=== PATIENT | female | born 1945 | race Two or more races ===

== ENCOUNTER → 2019-06-08 | Outpatient (CLI) | payer MEDICARE, MEDICAID | END | disposition home or self-care (01) | LOC: Rad HDHVI 13:56 | PROVIDERS: ATTEND Internal Medicine Cardiovascular Disease | DX: R07.9 Chest pain, unspecified (principal); R06.02 Shortness of breath; R00.2 Palpitations | CPT/HCPCS: 93306 ==

== ENCOUNTER → 2019-09-11 | Outpatient (CLI) | payer MEDICARE, MEDICAID ==
[2019-09-11 11:50] LABS: Basophils # (auto) 0.1 uL; Basophils % (auto) 1.6 % (0.0-2.0); Eosinophils # (auto) 0.2 uL; Eosinophils % (auto) 2.3 % (0.0-7.0); Hematocrit 41.9 % (36.0-46.0); Hemoglobin 13.8 g/dL (12.2-16.2); Lymphocytes # (auto) 2.2 uL; Mean Corpuscular Hemoglobin 31.5 pg (28.0-32.0); Mean Corpuscular Volume 95.5 fL (80.0-100.0); Monocytes # (auto) 0.8 uL; Monocytes % (auto) 11.1 % (0.0-12.0); Neutrophils # (auto) 3.8 uL; Nucleated Red Blood Cells % 0.1 %; Platelet Count (auto) 327 10^3/uL (140-450); Red Blood Cells 4.39 10^6/uL (4.0-5.20); Red Cell Distribution Width 13.9 % (11.8-14.3); Urine Blood Negative /uL (Negative); Urine Specific Gravity 1.022 (1.001-1.035)
[2019-09-11 11:59] LABS: Albumin 3.8 g/dL (3.4-5.0); Calcium 9.1 mg/dL (8.5-10.1); Potassium 3.9 mmol/L (3.5-5.1)
[2019-09-11 12:03] LABS: BUN/Creatinine Ratio 17.3; Bilirubin, Total 0.3 mg/dL (0.2-1.0); Total Protein 7.5 g/dL (6.4-8.2)
[2019-09-11 12:10] LABS: Free T4 (Free Thyroxine) 1.31 ng/dL (0.89-1.76)
== END | disposition home or self-care (01) ==
LOC: LAB 08:19
PROVIDERS: ATTEND Internal Medicine Cardiovascular Disease
DX: E03.9 Hypothyroidism, unspecified (principal); K90.9 Intestinal malabsorption, unspecified; N39.0 Urinary tract infection, site not specified; D51.9 Vitamin B12 deficiency anemia, unspecified; Z79.899 Other long term (current) drug therapy
CPT/HCPCS: 36415; 80053; 80061; 81003; 82306; 82607; 83036; 84439; 84443; 85025; 87086

== ENCOUNTER → 2019-10-31 | Outpatient (CLI) | payer MEDICARE, MEDICAID ==
[2019-11-01 09:05] LABS: Hepatitis A Total Antibody Positive
[2019-11-01 10:06] LABS: Hepatitis B Surface Antibody Positive
[2019-11-01 10:58] LABS: Hepatitis B Core Total AB Negative; Hepatitis B Surface Antigen Negative (Negative)
[2019-11-01 10:59] LABS: Hepatitis C Antibody Negative (Negative)
== END | disposition home or self-care (01) ==
LOC: LAB 11:25
PROVIDERS: ATTEND Internal Medicine Cardiovascular Disease
DX: K75.9 Inflammatory liver disease, unspecified (principal); Z20.5 Contact with and (suspected) exposure to viral hepatitis
CPT/HCPCS: 36415; 86704; 86706; 86708; 86803; 87340

== ENCOUNTER → 2019-11-08 | Outpatient (CLI) | payer MEDICARE, MEDICAID | END | disposition home or self-care (01) | LOC: Rad HDHVI 15:51 | PROVIDERS: ATTEND Internal Medicine Cardiovascular Disease | DX: I50.43 Acute on chronic combined systolic (congestive) and diastolic (congestive) heart failure (principal); I48.91 Unspecified atrial fibrillation | CPT/HCPCS: 93306 ==

== ENCOUNTER → 2020-01-22 | Outpatient (CLI) | payer MEDICARE, MEDICAID | END | disposition home or self-care (01) | LOC: Rad HDHVI 14:55 | PROVIDERS: ATTEND Internal Medicine Cardiovascular Disease | DX: I11.0 Hypertensive heart disease with heart failure (principal); I48.0 Paroxysmal atrial fibrillation; I50.43 Acute on chronic combined systolic (congestive) and diastolic (congestive) heart failure | CPT/HCPCS: 93306 ==

== ENCOUNTER → 2020-03-11 | Outpatient (CLI) | payer MEDICARE, MEDICAID ==
[~2020-03-11] VITALS: Ht 165.1 cm; Wt 83.9 kg
== END | disposition home or self-care (01) ==
LOC: Rad HDHVI 08:18
PROVIDERS: ATTEND Internal Medicine Cardiovascular Disease
DX: I11.0 Hypertensive heart disease with heart failure (principal); I50.43 Acute on chronic combined systolic (congestive) and diastolic (congestive) heart failure; I48.0 Paroxysmal atrial fibrillation; R06.02 Shortness of breath; E78.5 Hyperlipidemia, unspecified; Z82.49 Family history of ischemic heart disease and other diseases of the circulatory system; Z95.0 Presence of cardiac pacemaker
CPT/HCPCS: 78472; 96374; 96375; A9505

== ENCOUNTER → 2020-03-14 | Outpatient (CLI) | payer MEDICARE, MEDICAID ==
[~2020-03-14] VITALS: Ht 165.1 cm; Wt 83.9 kg
== END | disposition home or self-care (01) ==
LOC: Rad HDHVI 08:43
PROVIDERS: ATTEND Internal Medicine Cardiovascular Disease
DX: I50.43 Acute on chronic combined systolic (congestive) and diastolic (congestive) heart failure (principal); E78.5 Hyperlipidemia, unspecified; Z95.0 Presence of cardiac pacemaker; Z82.49 Family history of ischemic heart disease and other diseases of the circulatory system
CPT/HCPCS: 78452; 93017; 96374; A9500

== ENCOUNTER → 2020-05-27 | Outpatient (CLI) | payer MEDICARE, MEDICAID ==
[2020-05-27 11:57] LABS: Basophils # (auto) 0 10 ^3/uL (0-0.2); Basophils % (auto) 0.5 % (0.0-2.0); Eosinophils # (auto) 0.3 10 ^3/uL (0-0.8); Eosinophils % (auto) 3.5 % (0.0-7.0); Hematocrit 43.9 % (36.0-46.0); Hemoglobin 14.8 g/dL (12.2-16.2); Lymphocytes # (auto) 1.9 10 ^3/uL (0.4-5.4); Lymphocytes % (auto) 26.7 % (10.0-50.0); Mean Corpuscular Hemoglobin 31.8 pg (28.0-32.0); Mean Corpuscular Hgb Conc. 33.8 g/dL (32.0-36.0); Monocytes # (auto) 0.9 10 ^3/uL (0-1.3); Monocytes % (auto) 12.7 % (0.0-12.0); Neutrophils # (auto) 4.1 10 ^3/uL (1.6-8.6); Neutrophils % (auto) 56.6 % (37.0-80.0); Nucleated Red Blood Cells % 0.1 %; Platelet Count (auto) 347 10^3/uL (140-450); Red Blood Cells 4.67 10^6/uL (4.0-5.20); White Blood Cell 7.2 10^3/uL (4.4-10.8)
[2020-05-27 12:05] LABS: Albumin 3.8 g/dL (3.4-5.0); Calcium 9.2 mg/dL (8.5-10.1); Potassium 4.1 mmol/L (3.5-5.1)
[2020-05-27 12:09] LABS: BUN/Creatinine Ratio 22.4; Bilirubin, Total 0.4 mg/dL (0.2-1.0); Total Protein 7.8 g/dL (6.4-8.2)
== END | disposition home or self-care (01) ==
LOC: LAB 11:08
PROVIDERS: ATTEND Internal Medicine Cardiovascular Disease
DX: C83.30 Diffuse large B-cell lymphoma, unspecified site (principal)
CPT/HCPCS: 36415; 80053; 85025

== ENCOUNTER → 2021-03-23 | Outpatient (CLI) | payer MEDICARE, MEDICAID | END | disposition home or self-care (01) | LOC: Rad HDHVI 10:55 | PROVIDERS: ATTEND Internal Medicine Cardiovascular Disease | DX: R00.2 Palpitations (principal); R06.02 Shortness of breath | CPT/HCPCS: 93306 ==

== ENCOUNTER → 2021-08-18 | Outpatient (CLI) | payer MEDICARE, MEDICAID | END | disposition home or self-care (01) | LOC: Rad HDHVI 10:50 | PROVIDERS: ATTEND Internal Medicine Cardiovascular Disease | DX: R00.2 Palpitations (principal); E78.5 Hyperlipidemia, unspecified | CPT/HCPCS: 93306 ==

== ENCOUNTER → 2021-12-31 | Outpatient (CLI) | payer MEDICARE, MEDICAID | END | disposition home or self-care (01) | LOC: Rad HDHVI 10:09 | PROVIDERS: ATTEND Internal Medicine Cardiovascular Disease | DX: I51.7 Cardiomegaly (principal); R06.02 Shortness of breath; R06.00 Dyspnea, unspecified; R94.31 Abnormal electrocardiogram [ECG] [EKG]; R00.2 Palpitations | CPT/HCPCS: 83880; 93306 ==

== ENCOUNTER → 2022-06-04 | Outpatient (CLI) | payer MEDICARE, MEDICAID ==
[2022-06-04 11:40] LABS: BUN/Creatinine Ratio 15.1; Calcium 9.4 mg/dL (8.5-10.1); Potassium 4.1 mmol/L (3.5-5.1)
== END | disposition home or self-care (01) ==
LOC: LAB 10:42
PROVIDERS: ATTEND Internal Medicine Cardiovascular Disease
DX: E11.9 Type 2 diabetes mellitus without complications (principal)
CPT/HCPCS: 36415; 80048; 83036

== ENCOUNTER → 2022-07-12 | Outpatient (CLI) | payer MEDICARE, MEDICAID ==
[~2022-07-12] VITALS: Ht 157.5 cm; Wt 79.4 kg
== END | disposition home or self-care (01) ==
LOC: Rad HDHVI 08:54
PROVIDERS: ATTEND Internal Medicine Cardiovascular Disease
DX: R06.02 Shortness of breath (principal); I11.0 Hypertensive heart disease with heart failure; I50.43 Acute on chronic combined systolic (congestive) and diastolic (congestive) heart failure; E78.5 Hyperlipidemia, unspecified; R55 Syncope and collapse; I25.5 Ischemic cardiomyopathy; R60.9 Edema, unspecified; I47.20 Ventricular tachycardia, unspecified; Z82.49 Family history of ischemic heart disease and other diseases of the circulatory system; Z79.899 Other long term (current) drug therapy; Z95.0 Presence of cardiac pacemaker
CPT/HCPCS: 93017

== ENCOUNTER → 2022-07-13 | Outpatient (CLI) | payer MEDICARE, MEDICAID | END | disposition home or self-care (01) | LOC: Rad HDHVI 13:52 | PROVIDERS: ATTEND Internal Medicine Cardiovascular Disease | DX: I08.1 Rheumatic disorders of both mitral and tricuspid valves (principal); R06.02 Shortness of breath; E78.5 Hyperlipidemia, unspecified | CPT/HCPCS: 93306 ==

== ENCOUNTER → 2022-07-26 | Outpatient (CLI) | payer MEDICARE, MEDICAID ==
[2022-07-26 11:50] LABS: Urine Blood Negative /uL (Negative); Urine Specific Gravity 1.006 (1.001-1.035)
[2022-07-26 11:51] LABS: Basophils # (auto) 0.1 10 ^3/uL (0-0.2); Eosinophils # (auto) 0.4 10 ^3/uL (0-0.8); Eosinophils % (auto) 4.2 % (0.0-7.0); Hematocrit 40.1 % (36.0-46.0); Hemoglobin 12.8 g/dL (12.2-16.2); Lymphocytes # (auto) 2.6 10 ^3/uL (0.4-5.4); Mean Corpuscular Hemoglobin 30.3 pg (28.0-32.0); Mean Corpuscular Volume 94.8 fL (80.0-100.0); Monocytes # (auto) 1.2 10 ^3/uL (0-1.3); Monocytes % (auto) 13.7 % (0.0-12.0); Neutrophils # (auto) 4.4 10 ^3/uL (1.6-8.6); Neutrophils % (auto) 51.1 % (37.0-80.0); Red Blood Cells 4.23 10^6/uL (4.0-5.20); Red Cell Distribution Width 13.6 % (11.8-14.3); White Blood Cell 8.5 10^3/uL (4.4-10.8)
[2022-07-26 12:02] LABS: Albumin 3.5 g/dL (3.4-5.0); Calcium 9.1 mg/dL (8.5-10.1); Potassium 4.2 mmol/L (3.5-5.1)
[2022-07-26 12:07] LABS: BUN/Creatinine Ratio 29.7; Bilirubin, Total 0.3 mg/dL (0.2-1.0); Total Protein 7.2 g/dL (6.4-8.2)
[2022-07-26 12:30] LABS: Free T4 (Free Thyroxine) 0.94 ng/dL (0.89-1.76)
== END | disposition home or self-care (01) ==
LOC: LAB 09:44
PROVIDERS: ATTEND Internal Medicine Cardiovascular Disease
DX: D51.3 Other dietary vitamin B12 deficiency anemia (principal); E55.9 Vitamin D deficiency, unspecified; D64.9 Anemia, unspecified; E11.9 Type 2 diabetes mellitus without complications; I10 Essential (primary) hypertension; R00.2 Palpitations; R53.1 Weakness; R30.0 Dysuria
CPT/HCPCS: 36415; 80053; 80061; 81003; 82306; 82607; 83036; 84439; 84443; 85025; 87086

== ENCOUNTER → 2023-11-01 | Outpatient (CLI) | payer MEDICARE, MEDICAID ==
[2023-11-01 11:45] LABS: Basophils # (auto) 0.1 10 ^3/uL (0-0.2); Eosinophils # (auto) 0.2 10 ^3/uL (0-0.8); Hemoglobin 13.2 g/dL (12.2-16.2); Lymphocytes # (auto) 1.6 10 ^3/uL (0.4-5.4); Lymphocytes % (auto) 21.9 % (10.0-50.0); Mean Corpuscular Hemoglobin 30.7 pg (28.0-32.0); Mean Corpuscular Volume 92.9 fL (80.0-100.0); Monocytes # (auto) 1.2 10 ^3/uL (0-1.3); Monocytes % (auto) 16.2 % (0.0-12.0); Neutrophils # (auto) 4.1 10 ^3/uL (1.6-8.6); Neutrophils % (auto) 57.9 % (37.0-80.0); Nucleated Red Blood Cells % 0.1 %; Red Blood Cells 4.31 10^6/uL (4.0-5.20); Red Cell Distribution Width 13.4 % (11.8-14.3); White Blood Cell 7.1 10^3/uL (4.4-10.8)
[2023-11-01 12:06] LABS: Urine Bacteria FEW /hpf (None Seen); Urine Blood Negative /uL (Negative); Urine Clarity HAZY (Clear); Urine Color Colorless (Yellow); Urine Hyaline Cast FEW /lpf (0 - 2); Urine Mucus FEW (None Seen); Urine Protein, UAD Negative (Negative); Urine Specific Gravity 1.007 (1.001-1.035); Urine Urobilinogen Normal (Negative); Urine WBC 17 /hpf (0 - 5); Urine pH 5.5 (5.0-8.0)
[2023-11-01 12:20] LABS: Alanine Aminotransferase 20 U/L (7-40); Albumin 4.4 g/dL (3.2-4.8); Alkaline Phosphatase 88 U/L (46-116); Anion Gap 6 (5-15); Aspartate Aminotransferase 22 U/L (13-40); BUN/Creatinine Ratio 16.7 (10.0-20.0); Bilirubin, Direct 0.1 mg/dL (<0.3); Bilirubin, Total 0.5 mg/dL (0.2-1.0); Blood Urea Nitrogen 10 mg/dL (9-23); Calcium 9.8 mg/dL (8.5-10.1); Carbon Dioxide 28 mmol/L (20-30); Chloride 103 mmol/L (98-107); Cholesterol 223 mg/dL (< 200); Glucose 101 mg/dL (74-106); HDL Cholesterol 78 mg/dL (40-59); LDL Cholesterol 136 mg/dL (< 100); Sodium 137 mmol/L (136-145); Total Protein 7.5 g/dL (5.7-8.2); Triglycerides 95 mg/dL (< 150)
== END | disposition home or self-care (01) ==
LOC: LAB 11:26
PROVIDERS: ATTEND Internal Medicine Cardiovascular Disease
DX: I10 Essential (primary) hypertension (principal); D51.3 Other dietary vitamin B12 deficiency anemia; D64.9 Anemia, unspecified; E11.9 Type 2 diabetes mellitus without complications; E55.9 Vitamin D deficiency, unspecified
CPT/HCPCS: 36415; 80053; 80061; 80076; 81001; 83036; 84443; 85025

== ENCOUNTER → 2024-01-20 | Outpatient (CLI) | payer MEDICARE, MEDICAID ==
[~2024-01-20] VITALS: Ht 162.6 cm; Wt 77.1 kg
== END | disposition home or self-care (01) ==
LOC: Rad HDHVI 08:32
PROVIDERS: ATTEND Internal Medicine Cardiovascular Disease
DX: I11.0 Hypertensive heart disease with heart failure (principal); I50.23 Acute on chronic systolic (congestive) heart failure; R55 Syncope and collapse; E78.00 Pure hypercholesterolemia, unspecified; I27.21 Secondary pulmonary arterial hypertension
CPT/HCPCS: 78472; 96374; 96375; A9505

== ENCOUNTER 2024-03-29 11:32 | Emergency (ER) | payer MEDICARE, MEDICAID ==
[~2024-03-29] VITALS: Ht 167.6 cm; Wt 80.0 kg
[2024-03-29] MEDS ORDERED: CEPH500C PO (15:51)
[2024-03-29 15:54] VITALS: BP 138/88; PULSE 88; RESP 17; TEMP 99; O2SAT 98
== END 2024-03-29 15:56 | disposition home or self-care (01) ==
LOC: ER 11:32
DX: K13.70 Unspecified lesions of oral mucosa (principal); Z79.899 Other long term (current) drug therapy; Z91.09 Other allergy status, other than to drugs and biological substances
CPT/HCPCS: 71046

== ENCOUNTER → 2024-05-28 | Outpatient (CLI) | payer MEDICARE, MEDICAID ==
[~2024-05-28] MED LIST: CEPH500C PO
[2024-05-28 13:49] LABS: Basophils # (auto) 0.1 10 ^3/uL (0-0.2); Basophils % (auto) 1.3 % (0.0-2.0); Eosinophils # (auto) 0.3 10 ^3/uL (0-0.8); Eosinophils % (auto) 4.8 % (0.0-7.0); Hematocrit 41.2 % (36.0-46.0); Hemoglobin 13.8 g/dL (12.2-16.2); Lymphocytes # (auto) 1.8 10 ^3/uL (0.4-5.4); Mean Corpuscular Hemoglobin 31.3 pg (28.0-32.0); Mean Corpuscular Hgb Conc. 33.6 g/dL (32.0-36.0); Mean Corpuscular Volume 93.2 fL (80.0-100.0); Neutrophils # (auto) 3.8 10 ^3/uL (1.6-8.6); Neutrophils % (auto) 53.9 % (37.0-80.0); Platelet Count (auto) 302 10^3/uL (140-450); Red Blood Cells 4.42 10^6/uL (4.0-5.20); Red Cell Distribution Width 13.3 % (11.8-14.3); White Blood Cell 7.1 10^3/uL (4.4-10.8)
[2024-05-28 15:09] LABS: Alanine Aminotransferase 18 U/L (7-40); Albumin 4.3 g/dL (3.2-4.8); Alkaline Phosphatase 108 U/L (46-116); Anion Gap 6 (5-15); Aspartate Aminotransferase 19 U/L (13-40); BUN/Creatinine Ratio 11.8 (10.0-20.0); Bilirubin, Direct 0.1 mg/dL (<0.3); Bilirubin, Total 0.4 mg/dL (0.2-1.0); Blood Urea Nitrogen 9 mg/dL (9-23); Calcium 9.8 mg/dL (8.7-10.4); Carbon Dioxide 27 mmol/L (20-31); Chloride 106 mmol/L (98-107); Cholesterol 225 mg/dL (< 200); Glucose 104 mg/dL (74-106); HDL Cholesterol 70 mg/dL (40-59); LDL Cholesterol 149 mg/dL (< 100); Potassium 4.1 mmol/L (3.5-5.1); Sodium 139 mmol/L (136-145); Total Protein 7.4 g/dL (5.7-8.2); Triglycerides 82 mg/dL (< 150)
== END | disposition home or self-care (01) ==
LOC: LAB 13:31
PROVIDERS: ATTEND Internal Medicine Cardiovascular Disease
DX: I10 Essential (primary) hypertension (principal); D64.9 Anemia, unspecified; E55.9 Vitamin D deficiency, unspecified; E11.9 Type 2 diabetes mellitus without complications; D51.3 Other dietary vitamin B12 deficiency anemia; R00.0 Tachycardia, unspecified
CPT/HCPCS: 36415; 80048; 80061; 80076; 83036; 84443; 85025

== ENCOUNTER → 2024-09-18 | Outpatient (CLI) | payer MEDICARE, MEDICAID ==
--- NOTE | 2024-09-19 13:13 | DVHSR ---
APPROVED REPORT EXAM: Two-dimensional and M-mode echocardiogram with Doppler and color Doppler. DIMENSIONS LVDd4.3 (3.8-5.7cm)LA (2D)4.2 (1.9-4.0cm)Aortic Root3.2 (2.0-3.7cm) LVDs3.2 (2.5-4.0cm)LA (MM) (1.9-4.0cm)Aortic Cusp Exc1.7 (1.5-2.0cm) EF (%) 50.1 (55-70%)Rt. Atrium2.7 (1.9-4.0cm)Asc. Aorta cm IVSd1.3 (0.7-1.1cm)RV (D)2.4 (1.8-2.4cm) PWd1.3 (0.7-1.1cm) Mitral Valve MitralMitral Stenosis E wave0.49m/sMV Mean GR.mmHg A wave0.85m/sMV Peak GR.12mmHg E/A ratio0.62D MVAcm2 DECEL [id number] 1/2 [place] Aortic Valve Aortic ValveAortic Stenosis V10.64m/Daniela Mean GR.4mmHg V21.29m/Daniela Peak GR.7mmHg Pulmonic Valve V20.49m/s Tricuspid Valve TR Velocity2.19m/s [id number] LEFT VENTRICLE The Ejection Fraction is 50-55%. ATRIA The left atrium is mildly dilated. The right atrium size is normal. MITRAL VALVE The mitral valve is normal in structure and function. Mitral regurgitation is trace to mild. PULMONIC VALVE The pulmonic valve is not well visualized. TRICUSPID VALVE The tricuspid valve is grossly normal. There is trace to mild tricuspid regurgitation. AORTIC VALVE The aortic valve opens well. No aortic regurgitation is present. GREAT VESSELS The aortic root is normal size. PERICARDIAL EFFUSION There is no pericardial effusion. Conclusion EF 50% CONC LVH
== END | disposition home or self-care (01) ==
LOC: Rad HDHVI 10:04
PROVIDERS: ATTEND Internal Medicine Cardiovascular Disease
DX: I08.1 Rheumatic disorders of both mitral and tricuspid valves (principal)
CPT/HCPCS: 93306

== ENCOUNTER → 2024-09-21 | Outpatient (CLI) | payer MEDICARE, MEDICAID ==
[~2024-09-21] VITALS: Ht 162.6 cm; Wt 78.5 kg
== END | disposition home or self-care (01) ==
LOC: Rad HDHVI 08:52
PROVIDERS: ATTEND Internal Medicine Cardiovascular Disease
DX: R06.09 Other forms of dyspnea (principal); R53.83 Other fatigue; I11.0 Hypertensive heart disease with heart failure; E78.00 Pure hypercholesterolemia, unspecified; I48.0 Paroxysmal atrial fibrillation; I50.33 Acute on chronic diastolic (congestive) heart failure; R09.89 Other specified symptoms and signs involving the circulatory and respiratory systems; I42.1 Obstructive hypertrophic cardiomyopathy; R06.02 Shortness of breath; E11.9 Type 2 diabetes mellitus without complications; I27.21 Secondary pulmonary arterial hypertension; I25.5 Ischemic cardiomyopathy; R42 Dizziness and giddiness; Z82.49 Family history of ischemic heart disease and other diseases of the circulatory system
CPT/HCPCS: 78452; 93017; 96374; A9500

== ENCOUNTER → 2024-09-24 | Outpatient (CLI) | payer MEDICARE, MEDICAID | END | disposition home or self-care (01) | LOC: Rad HDHVI 13:08 | PROVIDERS: ATTEND Internal Medicine Cardiovascular Disease | DX: I48.0 Paroxysmal atrial fibrillation (principal); I50.33 Acute on chronic diastolic (congestive) heart failure | CPT/HCPCS: 93880 ==

== ENCOUNTER → 2024-10-15 | Outpatient (CLI) | payer MEDICARE, MEDICAID ==
--- NOTE | 2024-10-15 16:23 | DVH ---
EXAM: CT HEAD WITHOUT CONTRAST INDICATION: CVA TECHNIQUE: CT of the head without intravenous contrast. Radiation Dose : 1. Head: CT Dose: CTDI volume is 50.68 mGy. Dose-length product is 912.29 mGy*cm The dose indicators for CT are the volume Computed Tomography (CT) Dose Index (CTDIvol) and the Dose Length Product (DLP), and are measured in units of mGy and mGy-cm, respectively. These indicators are not patient dose, but values generated from the CT scanner acquisition factors. The report includes radiation exposure data for exposures received during this examination. COMPARISON: None FINDINGS: There is no evidence of acute intracranial hemorrhage, extra-axial collection, mass effect, midline s hift, herniation or hydrocephalus. The ventricles, sulci and cisterns are age appropriate. The maldonado-white differentiation is intact. Patchy periventricular and subcortical white matter hypoattenuation is nonspecific but may be related to small vessel ischemic disease. The visualized paranasal sinuses and mastoid air cells are clear. The surrounding soft tissues and osseous structures are unremarkable. IMPRESSION: 1. No acute intracranial abnormality. Radiation optimization: All CT scans at this facility use at least one of these dose optimization nithin hniques: automated exposure control mA and/or kV adjustment per patient size (includes targeted exam s where dose is matched to clinical indication) or iterative reconstruction.
== END | disposition home or self-care (01) ==
LOC: Rad HDHVI 15:47
PROVIDERS: ATTEND Internal Medicine Cardiovascular Disease
DX: I63.9 Cerebral infarction, unspecified (principal)
CPT/HCPCS: 70450

== ENCOUNTER → 2024-10-24 | Outpatient (CLI) | payer MEDICARE, MEDICAID | END | disposition home or self-care (01) | LOC: Rad HDHVI 13:34 | PROVIDERS: ATTEND Internal Medicine Cardiovascular Disease | DX: I51.7 Cardiomegaly (principal); R42 Dizziness and giddiness | CPT/HCPCS: 93880 ==

== ENCOUNTER → 2024-12-17 | Outpatient (CLI) | payer MEDICARE, MEDICAID | END | disposition home or self-care (01) | LOC: Rad HDHVI 15:14 | PROVIDERS: ATTEND Internal Medicine Cardiovascular Disease | DX: I07.1 Rheumatic tricuspid insufficiency (principal); R06.02 Shortness of breath; R00.2 Palpitations | CPT/HCPCS: 93306 ==

== ENCOUNTER 2025-01-22 09:08 | Outpatient (CLI) | payer MEDICARE, MEDICAID ==
[2025-01-22 09:32] LABS: Basophils # (auto) 0.1 10 ^3/uL (0-0.2); Basophils % (auto) 0.7 % (0.0-2.0); Eosinophils # (auto) 0.4 10 ^3/uL (0-0.8); Eosinophils % (auto) 4.3 % (0.0-7.0); Hematocrit 41.7 % (36.0-46.0); Hemoglobin 14.1 g/dL (12.2-16.2); Lymphocytes # (auto) 1.6 10 ^3/uL (0.4-5.4); Lymphocytes % (auto) 18.2 % (10.0-50.0); Mean Corpuscular Hemoglobin 30.9 pg (28.0-32.0); Mean Corpuscular Hgb Conc. 33.9 g/dL (32.0-36.0); Mean Corpuscular Volume 91.3 fL (80.0-100.0); Monocytes # (auto) 1.2 10 ^3/uL (0-1.3); Neutrophils # (auto) 5.4 10 ^3/uL (1.6-8.6); Neutrophils % (auto) 62.8 % (37.0-80.0); Nucleated Red Blood Cells % 0.2 %; Platelet Count (auto) 286 10^3/uL (140-450); Red Blood Cells 4.57 10^6/uL (4.0-5.20); Red Cell Distribution Width 13.4 % (11.8-14.3); White Blood Cell 8.6 10^3/uL (4.4-10.8)
[2025-01-22 10:02] LABS: Urine Bacteria FEW /hpf (None Seen); Urine Blood Negative /uL (Negative); Urine Clarity Turbid (Clear); Urine Color Yellow (Yellow); Urine Hyaline Cast FEW /lpf (0 - 2); Urine Mucus FEW (None Seen); Urine Protein, UAD TRACE (Negative); Urine Squamous Epithelial Cell FEW /hpf (<5); Urine Urobilinogen Normal (Negative); Urine WBC 90 /HPF (0-5); Urine pH 6.5 (5.0-9.0)
[2025-01-22 10:17] LABS: Alanine Aminotransferase 19 U/L (7-40); Albumin 4.4 g/dL (3.2-4.8); Alkaline Phosphatase 84 U/L (46-116); Anion Gap 7 (5-15); Aspartate Aminotransferase 17 U/L (13-40); BUN/Creatinine Ratio 14.3 (10.0-20.0); Bilirubin, Total 0.4 mg/dL (0.2-1.0); Blood Urea Nitrogen 12 mg/dL (9-23); Carbon Dioxide 30 mmol/L (20-31); Chloride 104 mmol/L (98-107); HDL Cholesterol 49 mg/dL (40-59); Potassium 4.4 mmol/L (3.5-5.1); Sodium 141 mmol/L (136-145); Total Protein 7.4 g/dL (5.7-8.2)
[2025-01-22 10:18] LABS: Bilirubin, Direct < 0.1 mg/dL (<0.3); Calcium 10.6 mg/dL (8.7-10.4); Cholesterol 261 mg/dL (< 200); Glucose 144 mg/dL (74-106); LDL Cholesterol 185 mg/dL (< 100); Triglycerides 255 mg/dL (< 150)
== END 2025-01-22 17:00 | disposition home or self-care (01) ==
LOC: LAB 09:08
PROVIDERS: ATTEND Internal Medicine Cardiovascular Disease
DX: I10 Essential (primary) hypertension (principal); E55.9 Vitamin D deficiency, unspecified; E11.9 Type 2 diabetes mellitus without complications; D64.9 Anemia, unspecified; R00.2 Palpitations
CPT/HCPCS: 36415; 80048; 80061; 80076; 81001; 83036; 84443; 85025

== ENCOUNTER 2025-05-12 20:19 | Inpatient (IN) | payer MEDICARE, MEDICAID ==
[~2025-05-12] VITALS: Ht 162.6 cm; Wt 74.3 kg
[2025-05-12 22:08] LABS: Hematocrit 40.6 % (36.0-46.0); Hemoglobin 13.4 g/dL (12.2-16.2); Mean Corpuscular Hemoglobin 30.3 pg (28.0-32.0); Mean Corpuscular Volume 91.9 fL (80.0-100.0); Nucleated Red Blood Cells % 0.0 %
[2025-05-12 22:10] LABS: Chloride 101 mmol/L (98-107); Potassium 4.7 mmol/L (3.5-5.1); Sodium 139 mmol/L (136-145)
[2025-05-12 22:11] LABS: Anion Gap 13 (5-15); Calcium 9.3 mg/dL (8.7-10.4); Carbon Dioxide 25 mmol/L (20-31)
[2025-05-12 22:16] LABS: BUN/Creatinine Ratio 9.0 (10.0-20.0); Blood Urea Nitrogen 19 mg/dL (9-23)
--- NOTE | 2025-05-12 22:17 | DVH ---
Exam: CT CT AB PEL WO CON-NO ORAL OR IV History: Flank Pain Comparison Study: [facility] on DOS: 07/13/22, [facility] on DOS: 12/31/21 Technique: Multidetector spiral CT of the abdomen was performed from lung bases to pubic symphysis. I maging was performed without IV contrast. Axial, coronal and sagittal multiplanar reformats were obta ined from the axial data set by the technologist. Radiation dose : 1. Abdomen/Pelvis: CTDIvol 9.31 mGy, DLP 540.65 mGy*cm. Findings: Evaluation of solid organs is limited due to lack of intravenous contrast use. Lung Bases: Trace left pleural effusion appeared. Liver: Cirrhotic in appearance no discrete lesion. Gallbladder and biliary Tree: Unremarkable Spleen: Not visualized Pancreas: The pancreas is grossly normal in appearance. Adrenal Glands: Unremarkable Kidneys: Kidneys are grossly normal without calculi or hydronephrosis. Bladder: Grossly unremarkable for degree of distention. Bowel: The stomach is grossly normal in appearance. Small bowel and colon are normal in caliber and d istribution. The appendix is not visualized; however, no secondary findings of acute appendicitis natalie ntified. Ascites: Large volume of sides. Diffuse omental nodularity and thickening. Lymphadenopathy: No mesenteric, retroperitoneal or periportal lymphadenopathy. Abdominal wall and Mesentery: Diffuse omental nodularity and plaque like thickening. Large volume of ascites. Vasculature: The visualized abdominal aorta is normal in size and caliber. Evaluation of abdominal a nd pelvic vessels is limited due to lack of intravenous contrast. Pelvic Organs: Unremarkable Musculoskeletal: No aggressive focal bony lesions, acute fractures or dislocation. IMPRESSION: 1. Large volume of ascites with diffuse omental nodularity concerning for metastatic disease. Primary not entirely clear on this unenhanced CT. Paracentesis and cytology recommended. Radiation optimization: All CT scans at this facility use at least one of these dose optimization nithin hniques: automated exposure control mA and/or kV adjustment per patient size (includes targeted exam s where dose is matched to clinical indication) or iterative reconstruction.
[2025-05-12 22:21] LABS: Glucose 127 mg/dL (74-106)
[2025-05-12 22:22] LABS: Urine Protein, UAD 1+ (Negative)
--- NOTE | 2025-05-12 22:46 | ED.PDOC ---
History of Present Illness HPI Comments 80-year-old female presents with spouse for chief complaint of nonradiating, right-sided flank pain, with the associated nausea, poor appetite, and dizziness. Patient endorses on a symptoms all day, today, following initial, unprovoked and atraumatic onset. No reported modifiers. No recent sick contact, travel, ingestion, or further pertinent events or lifestyle changes reported. Significant history for bradycardia status post pacemaker, COPD, and gallstones. Denial of any vomiting, diarrhea, constipation, urinary symptoms, or further associated symptoms. REVIEW OF SYSTEMS: General: No fever, no chills, or fatigue HEENT: No sore throat, no earache, no congestion, no neck pain. Cardiac: No chest pain. No palpitations. Lungs: No shortness of breath, no cough. GI: Nausea, poor appetite. no vomiting, no diarrhea, no constipation, no abdominal pain : Right flank pain. No dysuria, frequency, or urgency. No hematuria. Musculoskeletal: No joint pain , no joint swelling, no extremity edema. Skin: No rash, no itching. Neuro: Dizziness. No headache, no weakness PHYSICAL EXAM: General: Awake, alert and oriented. No acute distress. Skin: Skin in warm, dry and intact. Appropriate color for ethnicity. HEENT: The head is normocephalic and atraumatic. Conjunctivae are clear without exudates or hemorrhage. Sclera is non-icteric. EOM are intact. No signs of nystagmus. Eyelids are normal in appearance without swelling or lesions. Oral mucosa is pink and moist Neck: The neck is supple with normal range of motion. No JVD. Cardiac: Heart rate and rhythm are normal. No murmurs, gallops, or rubs are auscultated. Respiratory: No signs of respiratory distress. Lung sounds are clear in all lobes bilaterally without rales, rhonchi, or wheezes. Abdominal: Abdomen is soft, right flank tenderness, guarding or rigidity. Bowel sounds are present and normoactive in all four quadrants. +CVA tenderness Musculoskeletal: Right flank tenderness. Extremities: Upper and lower extremities are atraumatic in appearance without d eformity or edema. Neurological: The patient is awake, alert and oriented to person, place, and time with normal speech. Speech is clear. There is no facial asymmetry. Psychiatric: Appropriate mood and affect. Good judgement and insight. Chief Complaint: Flank Pain Time Seen by MD: 20:52 Reviewed Notes: Nurses Notes, Medications, Allergies Allergies: Coded Allergies: Statins (Verified Allergy, Unknown, 03/11/20) Home Meds Active Scripts Cephalexin Monohydrate (Cephalexin) 500 Mg Cap, 1 CAP PO TID, #30 CAP Prov:BRNETBRENDA 03/29/24 Information Source: Patient Mode of Arrival: Ambulatory Past Medical History PAST MEDICAL HISTORY: COPD, Gallstones Past Medical History (Other): Bradycardia status post pacemaker Surgical History: Pacemaker (Status post bradycardia) BRILLIANDEER LOPPER History: No Pertinent BRILLIANDEER LOPPER History Family History Family History: Reviewed,noncontributory to illness, Unknown Social History Smoker: Non-Smoker Alcohol: Denies ETOH Use Drugs: Denies Drug Use Lives In: Home Was a procedure done? Was a procedure done?: No Differential Dx Considerations may include: Differential diagnosis includes but is not limited to pyelonephritis, nephrolithiasis, AAA, musculoskeletal pain, urinary tract infection, cholecystitis, appendicitis, other X-Ray, Labs, Meds, VS Vital Signs Date Time Temp Pulse Resp B/P (MAP) Pulse Ox O2 Delivery O2 Flow Rate FiO2 05/12/25 20:20 97.8 76 20 124/57 93 97.8 Lab Test 05/12/25 23:25 05/12/25 22:00 05/12/25 21:52 Range/Units Lactic Acid Level 1.4 0.4-2.0 mmol/L Urine Color Yellow Yellow Urine Clarity Clear Clear Urine pH 5.0 5.0-9.0 Urine Specific [place] 1.015 1.001-1.035 Urine Protein 1+ H Negative Urine Ketones Trace H Negative Urine Blood Trace H Negative /uL Urine Nitrite Negative Negative Urine Bilirubin Negative Negative Urine Urobilinogen Normal Negative mg/dL Urine Leukocyte Esterase Negative Negative /uL Urine Glucose Normal Normal mg/dL White Blood Count 21.5 H 4.4-10.8 10^3/uL Red Blood Count 4.41 4.0-5.20 10^6/uL Hemoglobin 13.4 12.2-16.2 g/dL Hematocrit 40.6 36.0-46.0 % Mean Corpuscular Volume 91.9 80.0-100.0 fL Mean Corpuscular Hemoglobin 30.3 28.0-32.0 pg Mean Corpuscular Hemoglobin Concent 33.0 32.0-36.0 g/dL Red Cell Distribution Width 13.0 11.8-14.3 % Platelet Count 230 140-450 10^3/uL Mean Platelet Volume 7.8 6.9-10.8 fL Neutrophils (%) (Auto) 85.7 H 37.0-80.0 % Lymphocytes (%) (Auto) 4.7 L 10.0-50.0 % Monocytes (%) (Auto) 9.0 0.0-12.0 % Eosinophils (%) (Auto) 0.2 0.0-7.0 % Basophils (%) (Auto) 0.4 0.0-2.0 % Neutrophils # (Auto) 18.5 H 1.6-8.6 10 ^3/uL Lymphocytes # (Auto) 1.0 0.4-5.4 10 ^3/uL Monocytes # (Auto) 1.9 H 0-1.3 10 ^3/uL Eosinophils # (Auto) 0 0-0.8 10 ^3/uL Basophils # (Auto) 0.1 0-0.2 10 ^3/uL Nucleated Red Blood Cells 0.0 % Sodium Level 139 136-145 mmol/L Potassium Level 4.7 3.5-5.1 mmol/L Chloride Level 101 98-107 mmol/L Carbon Dioxide Level 25 20-31 mmol/L Anion Gap 13 5-15 Blood Urea Nitrogen 19 9-23 mg/dL Creatinine 2.10 H 0.550-1.02 mg/dL Glomerular Filtration Rate Calc 23 >90 mL/min BUN/Creatinine Ratio 9.0 L 10.0-20.0 Serum Glucose 127 H 74-106 mg/dL Calcium Level 9.3 8.7-10.4 mg/dL Total Bilirubin 0.5 0.2-1.0 mg/dL Aspartate Amino Transferase (AST) 63 H 13-40 U/L Alanine Aminotransferase (ALT) 26 7-40 U/L Alkaline Phosphatase 125 H 46-116 U/L Current Medications Medications (Trade) Dose Ordered Sig/Andrew Route Start Time Stop Time Status Last Admin Ibuprofen (Motrin Tablet) 600 mg ONCE ONCE PO 05/12/25 22:45 05/12/25 22:46 DC 05/13/25 01:27 Acetaminophen (Tylenol Tablet) 650 mg ONCE ONCE PO 05/12/25 22:45 05/12/25 22:46 DC 05/13/25 01:20 Ceftriaxone Sodium/Dextrose 50 ml @ 50 mls/hr ONCE ONCE IV 05/12/25 23:00 05/12/25 23:59 DC 05/13/25 01:[address] [address] Ph: [phone] DIAGNOSTIC IMAGING Diagnostic Imaging Report : [id number] Signed PATIENT: KAY ORTIZ ACCT: [id number] UNIT: [id number] : 1945 LOC: ER ROOM / BED: / AGE / SEX: 80 / F ADM STATUS: REG ER SERVICE 30 ORDERING PHYSICIAN: JESSI BHAT MD PROCEDURE(s): ABPL - CT AB PEL WO CON-NO ORAL OR IV REASON: Flank Pain ORDER NUMBER(s): [id number], ACCESSION NUMBER(s): [id number] Exam: CT CT AB PEL WO CON-NO ORAL OR IV History: Flank Pain Comparison Study: [facility] on DOS: 07/13/22, [facility] on DOS: 12/31/21 Technique: Multidetector spiral CT of the abdomen was performed from lung bases to pubic symphysis. Imaging was performed without IV contrast. Axial, coronal and sagittal multiplanar reformats were obtained from the axial data set by the technologist. Radiation dose : 1. Abdomen/Pelvis: CTDIvol 9.31 mGy, DLP 540.65 mGy*cm. Findings: Evaluation of solid organs is limited due to lack of intravenous contrast use. Lung Bases: Trace left pleural effusion appeared. Liver: Cirrhotic in appearance no discrete lesion. Gallbladder and biliary Tree: Unremarkable Spleen: Not visualized Pancreas: The pancreas is grossly normal in appearance. Adrenal Glands: Unremarkable Kidneys: Kidneys are grossly normal without calculi or hydronephrosis. Bladder: Grossly unremarkable for degree of distention. Bowel: The stomach is grossly normal in appearance. Small bowel and colon are normal in caliber and distribution. The appendix is not visualized; however, no secondary findings of acute appendicitis identified. Ascites: Large volume of sides. Diffuse omental nodularity and thickening. Lymphadenopathy: No mesenteric, retroperitoneal or periportal lymphadenopathy. Abdominal wall and Mesentery: Diffuse omental nodularity and plaque like thickening. Large volume of ascites. Vasculature: The visualized abdominal aorta is normal in size and caliber. Evaluation of abdominal and pelvic vessels is limited due to lack of intravenous contrast. Pelvic Organs: Unremarkable Musculoskeletal: No aggressive focal bony lesions, acute fractures or dislocation. IMPRESSION: 1. Large volume of ascites with diffuse omental nodularity concerning for metastatic disease. Primary not entirely clear on this unenhanced CT. Paracentesis and cytology recommended. Radiation optimization: All CT scans at this facility use at least one of these dose optimization techniques: automated exposure control mA and/or kV adjustm ent per patient size (includes targeted exams where dose is matched to clinical indication) or iterative reconstruction. ATED BY: TYLER FAJARDO MD DICTATED DATE/TIME: 05/12/252213 SIGNED BY: TYLER FAJARDO MD SIGNED DATE/TIME: 05/12/252213 CC: Time of 1ST Reevaluation: 21:22 Reevaluation 1ST: Unchanged Patient Education/Counseling: Treatment, Other (Need for admission) Family Education/Counseling: Treatment, Other (Need for admission) SEPSIS Sepsis Screen Date sepsis recognized/suspect: May 12, 2025 Time Sepsis recognized/suspect: 2025 Recent Procedure: No On Antibiotic Therapy: No Respiratory Rate >20: No Heart Rate >90: No Temp<36 C (96.8 F) or >38.3 C: No SBP <90 or MAP <65 mmHG: No New Acute Mental Status Change: No Is the patient on CPAP, BIPAP,: No Physician Orders Ct Ab Pel Wo Con-No Oral Or Iv (05/12/25 21:31) Blood Culture (05/12/25 22:52) Sodium Chloride 0.9% (05/12/25 23:00) Vital Signs Date Time Temp Pulse Resp B/P (MAP) Pulse Ox O2 Delivery O2 Flow Rate FiO2 05/12/25 20:20 97.8 76 20 124/57 93 97.8 Laboratory Tests Test 05/12/25 21:52 05/12/25 23:25 White Blood Count 21.5 10^3/uL (4.4-10.8) H Lactic Acid Level 1.4 mmol/L (0.4-2.0) Medications Medications Dose Ordered Sig/Andrew Route Start Time Stop Time Status Last Admin Dose Admin Acetaminophen 650 mg ONCE ONCE PO 05/12/25 22:45 05/12/25 22:46 DC 05/13/25 01:20 Ceftriaxone Sodium/Dextrose 50 ml @ 50 mls/hr ONCE ONCE IV 05/12/25 23:00 05/12/25 23:59 DC 05/13/25 01:27 Ibuprofen 600 mg ONCE ONCE PO 05/12/25 22:45 05/12/25 22:46 DC 05/13/25 01:27 Departure 1 Departure Time of Disposition: 22:54 Impression: Primary Impression: Abdominal ascites Additional Impression: GEORGE (acute kidney injury) Disposition: ADMITTED INPATIENT Condition: Stable Comments 80-year-old female with a worsening abdominal pain. CT scan shows new onset ascites concerning for possible malignancy. IV fluids initiated in the ED. Patient admitted to hospitalist service for further treatment, evaluation and monitoring. Critical Care Note Critical Care Time?: No Stability Stability form required: No Heart Score Heart Score: Heart Score Response (Comments) Value History N/A 0 EKG N/A 0 Age N/A 0 Risk Factors N/A 0 Troponin N/A 0 Total 0 I personally scribed for JESSI BHAT MD ([email or web address]) on 05/12/25 at 22:46. Electronically submitted by Iglesia Crawford ([email or web address]). I personally scribed for JESSI BHAT MD ([email or web address]) on 05/13/25 at 00:09. Electronically submitted by Iglesia Crawford ([email or web address]). JESSI BHAT MD May 12, 2025 22:46
[2025-05-12] MEDS: SODIUM CHLORIDE 0.9% 1,000 ML IV ONE (23:00)
[2025-05-12 23:30] LABS: Alanine Aminotransferase 26.0 U/L (7-40); Bilirubin, Total 0.5 mg/dL (0.2-1.0)
[2025-05-12 23:37] LABS: Alkaline Phosphatase 125.0 U/L (46-116)
[2025-05-13] VITALS (8 sets, daily range): BP systolic 100–143; BP diastolic 41–76; PULSE 70–96; RESP 16–19; TEMP 97.2–98.8; O2SAT 92–95
[2025-05-13] MEDS ORDERED: ONDANSETRON HCL 4 MG/2 ML VIAL IV PRN (00:45)
[2025-05-13] MEDS ORDERED: ALBUTEROL SULF 2.5 MG/0.5ML(0.5%) NEB SOLN NEB PRN (00:45)
--- NOTE | 2025-05-13 00:51 | DVHHP2 ---
History of Present Illness Reason for Visit: Abdominal pain History of Present Illness 80-year-old female presents for evaluation of right-sided abdominal pain. Patient endorses a three day history of right-sided abdominal pain with associated nausea. Patient reports the pain as pressure-like. Patient also reports losing approximately 15 lb unintentionally over the past couple of months. No fever or chills. No other acute complaints reported. Past Medical History Lymphoma 22 years ago, COPD, bradycardia, hypertension Past Surgical History Pacemaker, splenectomy Family History Noncontributory Smoke: No ALCOHOL: none Drugs: None Lives: with Family Review of Systems Review of Systems Review of systems are currently negative otherwise addressed in HPI. Allergies: Coded Allergies: Statins (Verified Allergy, Unknown, 03/11/20) Medications Current Medications Medications Dose Ordered Sig/Andrew Route Start Time Stop Time Status Last Admin Dose Admin Ceftriaxone Sodium 50 ml @ 100 mls/hr DAILY@09 IV 05/13/25 09:00 UNV Metoprolol Succinate 50 mg DAILY PO 05/13/25 10:00 UNV Digoxin 0.125 mg DAILY PO 05/13/25 10:00 UNV Exam Vital Signs Vital Signs Date Time Temp Pulse Resp B/P (MAP) Pulse Ox O2 Delivery O2 Flow Rate FiO2 05/12/25 20:20 97.8 76 20 124/57 93 97.8 Exam Gen: 80-year-old female in mild distress Skin: Warm, dry, normal color and texture, no rash. HEENT: Normocephalic atraumatic, mucous membranes moist and pink. Neck: Cervical and supraclavicular nodes normal without enlargement, trachea is midline, thyroid gland is normal without masses. Pulmonary: Clear to auscultation and percussion bilaterally. Cardiac: Regular rate and rhythm. No murmur Abdomen: Soft, nontender, mild distention, bowel sounds present all 4 quadrants, no guarding, no rigidity, no organomegaly. Extremities: No cyanosis, clubbing, no edema Neuro: Cranial nerves II through XII grossly intact, normal affect and speech, no focal motor deficits. Labs/Xrays ORDERING PHYSICIAN: JESSI BHAT MD PROCEDURE(s): ABPL - CT AB PEL WO CON-NO ORAL OR IV REASON: Flank Pain ORDER NUMBER(s): [id number], ACCESSION NUMBER(s): [id number] Exam: CT CT AB PEL WO CON-NO ORAL OR IV History: Flank Pain Comparison Study: [facility] on DOS: 07/13/22, [facility] on DOS: 12/31/21 Technique: Multidetector spiral CT of the abdomen was performed from lung bases to pubic symphysis. Imaging was performed without IV contrast. Axial, coronal and sagittal multiplanar reformats were obtained from the axial data set by the technologist. Radiation dose : 1. Abdomen/Pelvis: CTDIvol 9.31 mGy, DLP 540.65 mGy*cm. Findings: Evaluation of solid organs is limited due to lack of intravenous contrast use. Lung Bases: Trace left pleural effusion appeared. Liver: Cirrhotic in appearance no discrete lesion. Gallbladder and biliary Tree: Unremarkable Spleen: Not visualized Pancreas: The pancreas is grossly normal in appearance. Adrenal Glands: Unremarkable Kidneys: Kidneys are grossly normal without calculi or hydronephrosis. Bladder: Grossly unremarkable for degree of distention. Bowel: The stomach is grossly normal in appearance. Small bowel and colon are normal in caliber and distribution. The appendix is not visualized; however, no secondary findings of acute appendicitis identified. Ascites: Large volume of sides. Diffuse omental nodularity and thickening. Lymphadenopathy: No mesenteric, retroperitoneal or periportal lymphadenopathy. Abdominal wall and Mesentery: Diffuse omental nodularity and plaque like thickening. Large volume of ascites. Vasculature: The visualized abdominal aorta is normal in size and caliber. Evaluation of abdominal and pelvic vessels is limited due to lack of intravenous contrast. Pelvic Organs: Unremarkable Musculoskeletal: No aggressive focal bony lesions, acute fractures or dislocation. IMPRESSION: 1. Large volume of ascites with diffuse omental nodularity concerning for metastatic disease. Primary not entirely clear on this unenhanced CT. Paracentesis and cytology recommended. Radiation optimization: All CT scans at this facility use at least one of these dose optimization techniques: automated exposure control mA and/or kV adjustment per patient size (includes targeted exams where dose is matched to clinical indication) or iterative reconstruction. Labs Test 05/12/25 23:25 05/12/25 22:00 05/12/25 21:52 Range/Units Lactic Acid Level 1.4 0.4-2.0 mmol/L Urine Color Yellow Yellow Urine Clarity Clear Clear Urine pH 5.0 5.0-9.0 Urine Specific [place] 1.015 1.001-1.035 Urine Protein 1+ H Negative Urine Ketones Trace H Negative Urine Blood Trace H Negative /uL Urine Nitrite Negative Negative Urine Bilirubin Negative Negative Urine Urobilinogen Normal Negative mg/dL Urine Leukocyte Esterase Negative Negative /uL Urine Glucose Normal Normal mg/dL White Blood Count 21.5 H 4.4-10.8 10^3/uL Red Blood Count 4.41 4.0-5.20 10^6/uL Hemoglobin 13.4 12.2-16.2 g/dL Hematocrit 40.6 36.0-46.0 % Mean Corpuscular Volume 91.9 80.0-100.0 fL Mean Corpuscular Hemoglobin 30.3 28.0-32.0 pg Mean Corpuscular Hemoglobin Concent 33.0 32.0-36.0 g/dL Red Cell Distribution Width 13.0 11.8-14.3 % Platelet Count 230 140-450 10^3/uL Mean Platelet Volume 7.8 6.9-10.8 fL Neutrophils (%) (Auto) 85.7 H 37.0-80.0 % Lymphocytes (%) (Auto) 4.7 L 10.0-50.0 % Monocytes (%) (Auto) 9.0 0.0-12.0 % Eosinophils (%) (Auto) 0.2 0.0-7.0 % Basophils (%) (Auto) 0.4 0.0-2.0 % Neutrophils # (Auto) 18.5 H 1.6-8.6 10 ^3/uL Lymphocytes # (Auto) 1.0 0.4-5.4 10 ^3/uL Monocytes # (Auto) 1.9 H 0-1.3 10 ^3/uL Eosinophils # (Auto) 0 0-0.8 10 ^3/uL Basophils # (Auto) 0.1 0-0.2 10 ^3/uL Nucleated Red Blood Cells 0.0 % Sodium Level 139 136-145 mmol/L Potassium Level 4.7 3.5-5.1 mmol/L Chloride Level 101 98-107 mmol/L Carbon Dioxide Level 25 20-31 mmol/L Anion Gap 13 5-15 Blood Urea Nitrogen 19 9-23 mg/dL Creatinine 2.10 H 0.550-1.02 mg/dL Glomerular Filtration Rate Calc 23 >90 mL/min BUN/Creatinine Ratio 9.0 L 10.0-20.0 Serum Glucose 127 H 74-106 mg/dL Calcium Level 9.3 8.7-10.4 mg/dL Total Bilirubin 0.5 0.2-1.0 mg/dL Aspartate Amino Transferase (AST) 63 H 13-40 U/L Alanine Aminotransferase (ALT) 26 7-40 U/L Alkaline Phosphatase 125 H 46-116 U/L SEPSIS Sepsis Screen Date sepsis recognized/suspect: May 12, 2025 Time Sepsis recognized/suspect: 2025 Recent Procedure: No On Antibiotic Therapy: No Respiratory Rate >20: No Heart Rate >90: No Temp<36 C (96.8 F) or >38.3 C: No SBP <90 or MAP <65 mmHG: No New Acute Mental Status Change: No Is the patient on CPAP, BIPAP,: No Physician Orders Ct Ab Pel Wo Con-No Oral Or Iv (05/12/25 21:31) Blood Culture (05/12/25 22:52) Sodium Chloride 0.9% (05/12/25 23:00) Admit (05/12/25 23:36) Ceftriaxone 1gm/50ml (Rocephin) (05/13/25 09:00) * Radiologist Consult (05/13/25 00:42) *Dr. Avel Cortes [facility] (05/13/25 00:42) * Hematology/Oncology Consult (05/13/25 00:42) Metoprolol Xl Succinate (Toprol Xl) (05/13/25 10:00) Digoxin Tablet (Lanoxin Tablet) (05/13/25 10:00) Albuterol Medneb (Ventolin Medneb) (05/13/25 00:45) Basic Metabolic Panel (05/13/25 04:00) Complete Blood Count (05/13/25 04:00) Renal Standard(2gna,3gk,Lopho) (05/13/25 Breakfast) Hydrocodone-Acet 5/325mg Tab ([place] 5/32 (05/13/25 00:45) Ondansetron Hcl (Zofran) (05/13/25 00:45) Condition: Stable (05/13/25 00:42) Acetaminophen Tablet (Tylenol Tablet) (05/13/25 00:45) Bedrest With Bathroom Privileg (05/13/25 00:42) Vital Signs Date Time Temp Pulse Resp B/P (MAP) Pulse Ox O2 Delivery O2 Flow Rate FiO2 05/12/25 20:20 97.8 76 20 124/57 93 97.8 Laboratory Tests Test 05/12/25 21:52 05/12/25 23:25 White Blood Count 21.5 10^3/uL (4.4-10.8) H Lactic Acid Level 1.4 mmol/L (0.4-2.0) Assessment/Plan Assessment/Plan Assessment Acute renal failure Large volume ascites ? Metastatic disease Status post pacemaker Plan Admit the patient to [facility] to the hospitalist Nephrology consult Radiology consult Hematology consultation Resume home medications Continue treatment per orders. Plan discussed with: Patient My Orders Orders - HERB LYNN Procedure Category Date Status Time Admit ADMIT 05/12/25 Transmitted 23:36 Ceftriaxone 1gm/50ml PHA 05/13/25 Logged (Rocephin) 09:00 * Radiologist Consult CONS 05/13/25 Transmitted 00:42 *[facility]. [facility] CONS 05/13/25 Transmitted -[place] 00:42 * Hematology/Oncology CONS 05/13/25 Transmitted Consult 00:42 Metoprolol Xl PHA 05/13/25 Logged Succinate (Toprol Xl) 10:00 Digoxin Tablet PHA 05/13/25 Transmitted (Lanoxin Tablet) 10:00 Albuterol Medneb PHA 05/13/25 Transmitted (Ventolin Medneb) 00:45 Basic Metabolic Panel LAB 05/13/25 Logged 04:00 Complete Blood Count LAB 05/13/25 Logged 04:00 Renal DIET 05/13/25 Transmitted Standard(2gna,3gk,Lopho) Breakfast Hydrocodone-Acet PHA 05/13/25 Transmitted 5/325mg Tab ([place] 00:45 Ondansetron Hcl PHA 05/13/25 Transmitted (Zofran) 00:45 Condition: Stable JENNIFER 05/13/25 In Process 00:42 Acetaminophen Tablet PHA 05/13/25 Transmitted (Tylenol Tablet) 00:45 Bedrest With Bathroom JENNIFER 05/13/25 In Process Privileg 00:42 Date of Service: May 12, 2025 Billing Provider: HERB LYNN Common Visit Codes: [id number] INP/OBS CARE (HIGH) HERB LYNN May 13, 2025 00:51
[2025-05-13] MEDS: ACETAMINOPHEN 325 MG TAB PO ONE (01:20)
[2025-05-13] MEDS: IBUPROFEN 600 MG TAB PO ONE (01:27)
[2025-05-13 07:25] LABS: Hematocrit 40.8 % (36.0-46.0); Hemoglobin 13.3 g/dL (12.2-16.2); Mean Corpuscular Hemoglobin 30.3 pg (28.0-32.0); Mean Corpuscular Volume 92.6 fL (80.0-100.0); Nucleated Red Blood Cells % 0.0 %
[2025-05-13 07:52] LABS: Potassium 4.5 mmol/L (3.5-5.1)
[2025-05-13 07:53] LABS: Anion Gap 13 (5-15); Calcium 9.1 mg/dL (8.7-10.4); Carbon Dioxide 24 mmol/L (20-31); Chloride 98 mmol/L (98-107); Sodium 135 mmol/L (136-145)
[2025-05-13 07:58] LABS: BUN/Creatinine Ratio 8.1 (10.0-20.0); Blood Urea Nitrogen 21 mg/dL (9-23); Glucose 100 mg/dL (74-106)
[2025-05-13] MEDS ORDERED: SACU1TAB PO (08:58)
[2025-05-13] MEDS ORDERED: METO-289 PO (08:58)
[2025-05-13] MEDS ORDERED: IVAB5TAB2 PO (08:58)
[2025-05-13] MEDS ORDERED: DIGO0.12 PO (08:58)
--- NOTE | 2025-05-13 09:46 | DVH ---
US PARACENTESIS, HISTORY: ASCITES PROCEDURE: Informed consent was obtained. The patient was placed in supine position. A limited locali zation ultrasound of the abdomen was obtained, and the skin site over the largest pocket of fluid was marked and entry site was prepped with chlorhexidine which was allowed to dry and draped in the usua l sterile fashion. Time out was performed. Following administration of 1% lidocaine local anesthetic, a 5 Chinese centesis needle catheter was percutaneously inserted into the peritoneal collection until fluid was aspirated. The catheter was advanced into the fluid collection and the needle removed. Abo ut 3600 cc of fluid was aspirated and specimen sent for appropriate cultures/cytology/cultures and cy tology. The catheter was then removed and a sterile dressing applied. No immediate complication was identified. FINDINGS: Limited ultrasound imaging demonstrates mild to moderate ascites. Aspirated fluid was clear and serous. IMPRESSION: US-guided paracentesis with 3.6L removed.
[2025-05-13] MEDS: METOPROLOL SUCCINATE XL 50 MG TAB PO SCH (10:00)
[2025-05-13] MEDS: DIGOXIN 0.125 MG TAB PO SCH (10:10)
--- NOTE | 2025-05-13 12:13 | DVHINCON2 ---
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 She was found to have large volume ascites at presentation she is status post paracentesis with 3.6 L removed. She denies any previous history of kidney disease and reports her previous medical followups have never indicated a chronic kidney disease diagnosis the last time her hospital records here showed GFR calculation is greater than 70% in 2021 nephrology is consulted presently because patient has significantly diminished GFR currently less than 20% Allergies: Coded Allergies: Statins (Verified Allergy, Unknown, 03/11/20) Home Meds Reported Medications Digoxin (Digoxin) 125 Mcg Tab, 1 TAB PO DAILY 05/13/25 Sacubitril-Valsartan (Entresto 24-26 mg) 1 Tab Tab, TAB PO 05/13/25 Ivabradine HCl (Ivabradine Hydrochloride) 5 Mg Tab, 1 TAB PO BID 05/13/25 Metoprolol Succinate (Metoprolol Succinate Er) 50 Mg Tab, 1 TAB PO BID 05/13/25 Current Medications Current Medications Medications (Trade) Dose Ordered Sig/Andrew Route PRN Reason Start Time Stop Time Status Last Admin Ceftriaxone Sodium 50 ml @ 100 mls/hr DAILY@09 IV 05/13/25 09:00 05/13/25 08:18 Metoprolol Succinate (Toprol Xl) 50 mg DAILY PO 05/13/25 10:00 05/13/25 12:32 DC Digoxin (Lanoxin Tablet) 0.125 mg DAILY PO 05/13/25 10:00 05/13/25 12:32 DC 05/13/25 10:10 Albuterol (Ventolin Medneb) 2.5 mg Q6HPRN PRN NEB SHORTNESS OF BREATH 05/13/25 00:45 Acetaminophen/ Hydrocodone Bitart ([place] 5/325MG Tab) 1 tab Q4HP PRN PO MODERATE PAIN (4-6 PAIN SCALE) 05/13/25 00:45 Ondansetron HCl (Zofran) 4 mg Q4HP PRN IV NAUSEA / VOMITING 05/13/25 00:45 Acetaminophen (Tylenol Tablet) 650 mg Q6HP PRN PO PAIN SCALE 1-3 OR TEMP>100.4 05/13/25 00:45 Family History: FH: cancer G8 MOTHER FH: heart attack G8 MOTHER Review of Systems Abdominal distention H&P Exam Vital Signs/I&O Vital Sign Date Time Temp Pulse Resp B/P (MAP) Pulse Ox O2 Delivery O2 Flow Rate FiO2 05/13/25 10:10 66 05/13/25 10:00 102/45 05/13/25 09:39 95 Room Air* 0 21 05/13/25 09:00 97.6 19 97.6 Intake and Output 05/12/25 05/13/25 19:00 07:00 Intake Total 50 ml Balance 50 ml Intake IV Total 50 ml Physical Exam Elderly female Appears stated age Not in overt distress Periorbital puffiness regular rate and rhythm abdomen is not firm is soft no present distention status post paracentesis Trace ankle edema Labs/Diagnostic Data Labs/Diagnostic Data Laboratory Tests Test 05/13/25 07:00 05/12/25 23:25 05/12/25 22:00 05/12/25 21:52 Range/Units White Blood Count 20.6 H 21.5 H 4.4-10.8 10^3/uL Red Blood Count 4.40 4.41 4.0-5.20 10^6/uL Hemoglobin 13.3 13.4 12.2-16.2 g/dL Hematocrit 40.8 40.6 36.0-46.0 % Mean Corpuscular Volume 92.6 91.9 80.0-100.0 fL Mean Corpuscular Hemoglobin 30.3 30.3 28.0-32.0 pg Mean Corpuscular Hemoglobin Concent 32.7 33.0 32.0-36.0 g/dL Red Cell Distribution Width 13.4 13.0 11.8-14.3 % Platelet Count 220 230 140-450 10^3/uL Mean Platelet Volume 7.7 7.8 6.9-10.8 fL Neutrophils (%) (Auto) 82.1 H 85.7 H 37.0-80.0 % Lymphocytes (%) (Auto) 6.1 L 4.7 L 10.0-50.0 % Monocytes (%) (Auto) 10.7 9.0 0.0-12.0 % Eosinophils (%) (Auto) 0.7 0.2 0.0-7.0 % Basophils (%) (Auto) 0.4 0.4 0.0-2.0 % Neutrophils # (Auto) 16.9 H 18.5 H 1.6-8.6 10 ^3/uL Lymphocytes # (Auto) 1.2 1.0 0.4-5.4 10 ^3/uL Monocytes # (Auto) 2.2 H 1.9 H 0-1.3 10 ^3/uL Eosinophils # (Auto) 0.1 0 0-0.8 10 ^3/uL Basophils # (Auto) 0.1 0.1 0-0.2 10 ^3/uL Nucleated Red Blood Cells 0.0 0.0 % Sodium Level 135 L 139 136-145 mmol/L Potassium Level 4.5 4.7 3.5-5.1 mmol/L Chloride Level 98 101 98-107 mmol/L Carbon Dioxide Level 24 25 20-31 mmol/L Anion Gap 13 13 5-15 Blood Urea Nitrogen 21 19 9-23 mg/dL Creatinine 2.59 H 2.10 H 0.550-1.02 mg/dL Glomerular Filtration Rate Calc 18 23 >90 mL/min BUN/Creatinine Ratio 8.1 L 9.0 L 10.0-20.0 Serum Glucose 100 127 H 74-106 mg/dL Calcium Level 9.1 9.3 8.7-10.4 mg/dL Lactic Acid Level 1.4 0.4-2.0 mmol/L Urine Color Yellow Yellow Urine Clarity Clear Clear Urine pH 5.0 5.0-9.0 Urine Specific [place] 1.015 1.001-1.035 Urine Protein 1+ H Negative Urine Ketones Trace H Negative Urine Blood Trace H Negative /uL Urine Nitrite Negative Negative Urine Bilirubin Negative Negative Urine Urobilinogen Normal Negative mg/dL Urine Leukocyte Esterase Negative Negative /uL Urine Glucose Normal Normal mg/dL Total Bilirubin 0.5 0.2-1.0 mg/dL Aspartate Amino Transferase (AST) 63 H 13-40 U/L Alanine Aminotransferase (ALT) 26 7-40 U/L Alkaline Phosphatase 125 H 46-116 U/L Assessment Acute kidney injury hemodynamically mediated no previous ckd hx GFR > 70 in 2021 new onset Ascites s/p large volume paracentesis given hx nonhodgkin lymphoma there is high concern for malignant ascites overall normal Echo 11/2024 f/u paracentesis results, send for diagnosis obtain serum albumin level f/u cardiology no emergent indication for dialysis at this time, rec continued w/u of of ascites no nsaids avoid contrast studies obtain records from [facility] 55mins Plan discussed with: Patient ELENA CULVER MD May 13, 2025 12:13
--- NOTE | 2025-05-13 12:40 | DVHPN2 ---
Progress Note Date Seen: May 13, 2025 Medical Necessity Reason Pt with a Central, PICC or Fol: No Subjective Patient reports: No new complaints Review of Systems: HEENT:Normal, CVS:Normal, RESPIRATORY:Normal, GI:Normal, :Normal, MSK:Normal, NEURO:Normal Objective vital signs Vital Sign Date Time Temp Pulse Resp B/P (MAP) Pulse Ox O2 Delivery O2 Flow Rate FiO2 05/13/25 10:10 66 05/13/25 10:00 102/45 05/13/25 09:39 95 Room Air* 0 21 05/13/25 09:00 97.6 19 97.6 Total Intake and Output 05/12/25 05/12/25 05/13/25 15:00 23:00 07:00 Intake Total 50 ml Balance 50 ml medications Current Medications Medications Dose Ordered Sig/Andrew Route Start Time Stop Time Status Last Admin Dose Admin Ceftriaxone Sodium 50 ml @ 100 mls/hr DAILY@09 IV 05/13/25 09:00 05/13/25 08:18 100 MLS/HR Albuterol 2.5 mg Q6HPRN PRN NEB 05/13/25 00:45 Acetaminophen/ Hydrocodone Bitart 1 tab Q4HP PRN PO 05/13/25 00:45 Ondansetron HCl 4 mg Q4HP PRN IV 05/13/25 00:45 Acetaminophen 650 mg Q6HP PRN PO 05/13/25 00:45 Examination: GENERAL:Normal, HEENT:Normal, NECK:Normal, LUNGS:Normal, CVS:Normal, ABDOMEN:Normal, ABDOMEN:Abnormal (ascites), MSK:Normal, SKIN:Normal, NEURO:Normal, :Normal laboratory and microbiology Laboratory Tests 05/13/25 07:00 Test 05/13/25 07:00 Range/Units Serum Glucose 100 74-106 mg/dL Problem List/Assessment/Plan Problem List/Assessment/Plan #1 ascites: s/p paracentesis #2 liver cirrhosis: check hep panel #3 non hodgkins lymphoma #4 h/o pacer #5 acute renal failure ?vasomotor nephropathy #6 wt loss #7 sepsis with ?sbp: iv rocephin #8 copd #9 omental nodularity advance care planning- full code- time spent 19 mins Plan discussed with: Patient My Orders My Orders Orders - HERB SERRATO MD Procedure Category Date Status Time * Cardiology Consult CONS 05/13/25 Transmitted 12:27 Digoxin (Lanoxin) LAB 05/13/25 Transmitted 12:27 Echo 2d Mode Cardiac US 05/13/25 Logged DOP 12:27 Complete Blood Count LAB 05/14/25 Verified 06:00 Comprehensive LAB 05/14/25 Verified Metabolic Panel 06:00 PTPTT LAB 05/14/25 Verified 04:00 Acute Hepatitis Panel LAB 05/13/25 Transmitted 12:27 Date of Service: May 13, 2025 Billing Provider: HERB SERRATO MD Common Visit Codes: [id number] INP/OBS CARE(HIGH) Secondary Visit Codes: [id number] CARE PLAN 30 MINUTES HERB SERRATO MD May 13, 2025 12:40
--- NOTE | 2025-05-13 13:34 | DVHPN2 ---
Progress Note - Dictate Date Seen: May 13, 2025 Medical Necessity Reason Pt with a Central, PICC or Fol: No Subjective PT WITH CAROID STENOSIS S/P CERVICAL SPINE SURGERY CRYPTOGENIC CIRRHOSIS KYLIE HTN VOLUME DEPLETION PROGRESSIVE ASCITES R/O PERITONITIS HFrEF S/P BV AICD vital signs Vital Sign Date Time Temp Pulse Resp B/P (MAP) Pulse Ox O2 Delivery O2 Flow Rate FiO2 05/13/25 10:10 66 05/13/25 10:00 102/45 05/13/25 09:39 95 Room Air* 0 21 05/13/25 09:00 97.6 19 97.6 Total Intake and Output 05/12/25 05/12/25 05/13/25 15:00 23:00 07:00 Intake Total 50 ml Balance 50 ml medications Current Medications Medications Dose Ordered Sig/Andrew Route Start Time Stop Time Status Last Admin Dose Admin Ceftriaxone Sodium 50 ml @ 100 mls/hr DAILY@09 IV 05/13/25 09:00 05/13/25 08:18 100 MLS/HR Albuterol 2.5 mg Q6HPRN PRN NEB 05/13/25 00:45 Acetaminophen/ Hydrocodone Bitart 1 tab Q4HP PRN PO 05/13/25 00:45 Ondansetron HCl 4 mg Q4HP PRN IV 05/13/25 00:45 Acetaminophen 650 mg Q6HP PRN PO 05/13/25 00:45 objective HEENT: Normal ENT Inspection, PERRL/EOMI, Pharynx Normal, TMs Normal, Other (A TINY BLOOD VESSEL ON THE ROOF OF THE MOUTH IS BLEEDING, NO SWELLING AND ACTIVELY BLEEDING. NO BLOOD CLOTS, NO DENTAL AND GUM INFECTION. ) Neck: Full Range of Motion, Non-Tender, Normal, Normal Inspection Respiratory: Chest Non-Tender, Lungs Clear, No Accessory Muscle Use, No Respiratory Distress, Normal Breath Sounds Cardiovascular: No Edema, No JVD, No Murmur, No Gallop, Normal Peripheral Pulses, Regular Rate/Rhythm Breast Exam: Deferred Gastrointestinal: No Organomegaly, + ascite< shifting dullness Genitalia: Deferred Pelvic: Deferred Rectal: Deferred Extremities: No calf tenderness, Normal capillary refill, Normal inspection, Normal range of motion, Non-tender, No pedal edema Musculoskeletal : Apperance: Normal Neurologic: Alert, precision 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 hand II-XII nml as Tested, No Motor Deficits, Normal Affect, Normal Mood, No Sensory Deficits Cerebellar Function: Normal Reflexes: Normal Skin: Dry, Normal Color, Warm Peripheral Pulses: 2+ carotid (R), 2+ carotid (L) Lymphatic: No Adenopathy laboratory and microbiology Laboratory Tests 05/13/25 07:00 Test 05/13/25 07:00 Range/Units Serum Glucose 100 74-106 mg/dL Problem List PERITONITIS ASICITES CIRRHOSIS HFrEF S/P BIV AICD ACUTE RENAL FAILURE Assessment/Plan ABX S/P PARACENTESIS SLOW VOLUME REPLETION WITH ALBUMIN Plan discussed with: Patient, Daughter, Son Critical Care Time(min): 35 RUDY CHAKRABORTY MD May 13, 2025 13:34
[2025-05-13 16:38] LABS: Hepatitis B Surface Antigen Negative (Negative)
[2025-05-13 17:13] LABS: Hepatitis C Antibody Negative (Negative)
[2025-05-14] VITALS (9 sets, daily range): BP systolic 109–128; BP diastolic 61–72; PULSE 72–96; RESP 16–18; TEMP 97.6–98.6; O2SAT 93–99
[2025-05-14 04:20] LABS: Hematocrit 35.7 % (36.0-46.0); Hemoglobin 12.3 g/dL (12.2-16.2); Mean Corpuscular Hemoglobin 31.2 pg (28.0-32.0); Mean Corpuscular Volume 90.4 fL (80.0-100.0); Nucleated Red Blood Cells % 0.0 %
[2025-05-14 04:29] LABS: Alanine Aminotransferase 15 U/L (7-40); Albumin 3.3 g/dL (3.2-4.8); Alkaline Phosphatase 98 U/L (46-116); Anion Gap 13 (5-15); BUN/Creatinine Ratio 12.9 (10.0-20.0); Bilirubin, Total 0.3 mg/dL (0.2-1.0); Carbon Dioxide 24 mmol/L (20-31); Chloride 100 mmol/L (98-107); Glucose 99 mg/dL (74-106); Potassium 4.2 mmol/L (3.5-5.1); Sodium 137 mmol/L (136-145); Total Protein 6.1 g/dL (5.7-8.2)
[2025-05-14 04:37] LABS: INR 1.13 (0.9-1.15); Partial Thromboplastin Time 33.1 SEC (24.5-34.5); Prothrombin Time 11.8 sec (9.3-11.8)
[2025-05-14 04:40] LABS: Blood Urea Nitrogen 40 mg/dL (9-23); Calcium 8.6 mg/dL (8.7-10.4)
--- NOTE | 2025-05-14 10:29 | DVHPN2 ---
Progress Note Date Seen: May 14, 2025 Medical Necessity Reason Pt with a Central, PICC or Fol: No Subjective Patient reports: No new complaints Review of Systems: HEENT:Normal, CVS:Normal, RESPIRATORY:Normal, GI:Normal, :Normal, MSK:Normal, NEURO:Normal Objective vital signs Vital Sign Date Time Temp Pulse Resp B/P (MAP) Pulse Ox O2 Delivery O2 Flow Rate FiO2 05/14/25 08:59 97.6 89 16 115/63 (80) 96 97.6 05/14/25 08:06 Room Air* 0 21 Total Intake and Output 05/13/25 05/13/25 05/14/25 15:00 23:00 07:00 Intake Total 0 ml 400 ml Balance 0 ml 400 ml medications Current Medications Medications Dose Ordered Sig/Andrew Route Start Time Stop Time Status Last Admin Dose Admin Ceftriaxone Sodium 50 ml @ 100 mls/hr DAILY@09 IV 05/13/25 09:00 05/14/25 08:29 100 MLS/HR Albuterol 2.5 mg Q6HPRN PRN NEB 05/13/25 00:45 Acetaminophen/ Hydrocodone Bitart 1 tab Q4HP PRN PO 05/13/25 00:45 Ondansetron HCl 4 mg Q4HP PRN IV 05/13/25 00:45 Acetaminophen 650 mg Q6HP PRN PO 05/13/25 00:45 Examination: GENERAL:Normal, HEENT:Normal, NECK:Normal, LUNGS:Normal, CVS:Normal, ABDOMEN:Normal, MSK:Normal, SKIN:Normal, NEURO:Normal, :Normal laboratory and microbiology Laboratory Tests 05/14/25 03:48 Test 05/14/25 03:48 Range/Units Serum Glucose 99 74-106 mg/dL Microbiology Date/Time Source Procedure Growth Status 05/12/25 23:25 Blood Blood Culture - Preliminary NO GROWTH AFTER 24 HOURS OF INCUBATION. Resulted Problem List/Assessment/Plan Problem List/Assessment/Plan #1 ascites: s/p paracentesis #2 liver cirrhosis: check hep panel #3 non hodgkins lymphoma #4 h/o pacer #5 acute renal failure ?vasomotor nephropathy #6 wt loss #7 sepsis with ?sbp: iv rocephin #8 copd #9 omental nodularity advance care planning- full code- time spent 19 mins Plan discussed with: Patient My Orders My Orders Orders - AMA,HERMILA S MD Procedure Category Date Status Time * Cardiology Consult CONS 05/13/25 Transmitted 12:27 Octreotide Acetate PHA 05/14/25 Verified (Sandostatin) 14:00 Lactulose Oral PHA 05/14/25 Verified 10:30 Lactulose Oral PHA 05/14/25 Verified 22:00 Temazepam (Restoril) PHA 05/14/25 Verified 10:30 Pantoprazole PHA 05/14/25 Verified (Protonix) 10:30 Pantoprazole PHA 05/15/25 Verified (Protonix) 10:00 Pt Request For Service PT 05/14/25 Verified 10:25 Basic Metabolic Panel LAB 05/15/25 Verified 06:00 Complete Blood Count LAB 05/15/25 Verified 06:00 Chest Portable XY 05/14/25 Verified 10:25 Date of Service: May 14, 2025 Billing Provider: HERB SERRATO MD Common Visit Codes: [id number] INP/OBS CARE(HIGH) HERB SERRATO MD May 14, 2025 10:29
[2025-05-14] MEDS: LACTULOSE 20Gm/30ML SOLN PO ONE (10:53)
[2025-05-14] MEDS: PANTOPRAZOLE 40 MG/10 ML VIAL INJ IV ONE (10:53)
--- NOTE | 2025-05-14 10:59 | DVH ---
XY CHEST PORTABLE, HISTORY: CHF COMPARISON: XY CHEST TWO VIEWS ROUTINE on DOS: 03/29/24 XY CHEST TWO VIEWS ROUTINE on DOS: 03/29/24 TECHNICAL DATA: 1 view of the chest was obtained. FINDINGS: Lines and tubes: A cardiac pacer is noted. Cardiomediastinal silhouette: normal Pulmonary vasculature: normal Lung expansion: normal Lung airspace: normal Lung interstitium: normal Pleura: normal Pneumothorax: no Bones: Unremarkable Other: no IMPRESSION: No acute intrathoracic abnormality.
--- NOTE | 2025-05-14 12:21 | DVHPN2 ---
Progress Note Date Seen: May 14, 2025 Medical Necessity Reason Pt with a Central, PICC or Fol: No Subjective Patient reports: Feels better Objective vital signs Vital Sign Date Time Temp Pulse Resp B/P (MAP) Pulse Ox O2 Delivery O2 Flow Rate FiO2 05/14/25 08:59 97.6 89 16 115/63 (80) 96 97.6 05/14/25 08:06 Room Air* 0 21 Total Intake and Output 05/13/25 05/13/25 05/14/25 14:59 22:59 06:59 Intake Total 0 ml 400 ml Balance 0 ml 400 ml medications Current Medications Medications Dose Ordered Sig/Andrew Route Start Time Stop Time Status Last Admin Dose Admin Ceftriaxone Sodium 50 ml @ 100 mls/hr DAILY@09 IV 05/13/25 09:00 05/14/25 08:29 100 MLS/HR Albuterol 2.5 mg Q6HPRN PRN NEB 05/13/25 00:45 Acetaminophen/ Hydrocodone Bitart 1 tab Q4HP PRN PO 05/13/25 00:45 Ondansetron HCl 4 mg Q4HP PRN IV 05/13/25 00:45 Acetaminophen 650 mg Q6HP PRN PO 05/13/25 00:45 Octreotide Acetate 100 mcg TID SUBCUT 05/14/25 14:00 Lactulose 30 ml BID PO 05/14/25 22:00 Temazepam 15 mg HSPRN PRN PO 05/14/25 10:30 Pantoprazole Sodium 40 mg DAILY IV 05/15/25 10:00 Examination: GENERAL:Normal, CVS:Normal laboratory and microbiology Laboratory Tests 05/14/25 03:48 Test 05/14/25 03:48 Range/Units Serum Glucose 99 74-106 mg/dL Microbiology Date/Time Source Procedure Growth Status 05/12/25 23:25 Blood Blood Culture - Preliminary NO GROWTH AFTER 24 HOURS OF INCUBATION. Resulted Problem List/Assessment/Plan Problem List/Assessment/Plan Acute kidney injury hemodynamically mediated no previous ckd hx GFR > 70 in 2021 new onset Ascites s/p large volume paracentesis given hx nonhodgkin lymphoma there is high concern for malignant ascites overall normal Echo 11/2024 patient reports PPM was placed for type 1 heart block f/u paracentesis results, send for diagnosis f/u cardiology IV albumin today no emergent indication for dialysis at this time, despite worsening cr send urine studies rec continued w/u of of ascites no nsaids avoid contrast studies obtain records from [place] Plan discussed with: Patient My Orders My Orders Orders - ELENA CULVER MD Procedure Category Date Status Time Urine Sodium LAB 05/14/25 Logged 10:38 Urine Creatinine LAB 05/14/25 Logged 10:38 Urine LAB 05/14/25 Logged Protein/Creatinine Communication Order ORDERS 05/14/25 Transmitted 10:38 ELENA CULVER MD May 14, 2025 12:21
[2025-05-14] MEDS: ALBUMIN 25% 50 ML IV SCH ×2 (12:30→21:47)
--- NOTE | 2025-05-14 12:41 | DVHPN2 ---
Progress Note - Dictate Date Seen: May 14, 2025 Medical Necessity Reason Pt with a Central, PICC or Fol: No Subjective PT WITH CAROID STENOSIS S/P CERVICAL SPINE SURGERY CRYPTOGENIC CIRRHOSIS KYLIE HTN VOLUME DEPLETION PROGRESSIVE ASCITES R/O PERITONITIS HFrEF S/P BV AICD vital signs Vital Sign Date Time Temp Pulse Resp B/P (MAP) Pulse Ox O2 Delivery O2 Flow Rate FiO2 05/14/25 08:59 97.6 89 16 115/63 (80) 96 97.6 05/14/25 08:06 Room Air* 0 21 Total Intake and Output 05/13/25 05/13/25 05/14/25 15:00 23:00 07:00 Intake Total 0 ml 400 ml Balance 0 ml 400 ml medications Current Medications Medications Dose Ordered Sig/Andrew Route Start Time Stop Time Status Last Admin Dose Admin Ceftriaxone Sodium 50 ml @ 100 mls/hr DAILY@09 IV 05/13/25 09:00 05/14/25 08:29 100 MLS/HR Albuterol 2.5 mg Q6HPRN PRN NEB 05/13/25 00:45 Acetaminophen/ Hydrocodone Bitart 1 tab Q4HP PRN PO 05/13/25 00:45 Ondansetron HCl 4 mg Q4HP PRN IV 05/13/25 00:45 Acetaminophen 650 mg Q6HP PRN PO 05/13/25 00:45 Octreotide Acetate 100 mcg TID SUBCUT 05/14/25 14:00 Lactulose 30 ml BID PO 05/14/25 22:00 Temazepam 15 mg HSPRN PRN PO 05/14/25 10:30 Pantoprazole Sodium 40 mg DAILY IV 05/15/25 10:00 Albumin Human 50 ml @ 100 mls/hr Q8H IV 05/14/25 12:30 05/15/25 04:59 UNV objective HEENT: Normal ENT Inspection, PERRL/EOMI, Pharynx Normal, TMs Normal, Other (A TINY BLOOD VESSEL ON THE ROOF OF THE MOUTH IS BLEEDING, NO SWELLING AND ACTIVELY BLEEDING. NO BLOOD CLOTS, NO DENTAL AND GUM INFECTION. ) Neck: Full Range of Motion, Non-Tender, Normal, Normal Inspection Respiratory: Chest Non-Tender, Lungs Clear, No Accessory Muscle Use, No Respiratory Distress, Normal Breath Sounds Cardiovascular: No Edema, No JVD, No Murmur, No Gallop, Normal Peripheral Pulses, Regular Rate/Rhythm Breast Exam: Deferred Gastrointestinal: No Organomegaly, + ascite< shifting dullness Genitalia: Deferred Pelvic: Deferred Rectal: Deferred Extremities: No calf tenderness, Normal capillary refill, Normal inspection, Normal range of motion, Non-tender, No pedal edema Musculoskeletal : Apperance: Normal Neurologic: Alert, link cutter II-XII nml as Tested, No Motor Deficits, Normal Affect, Normal Mood, No Sensory Deficits Cerebellar Function: Normal Reflexes: Normal Skin: Dry, Normal Color, Warm Peripheral Pulses: 2+ carotid (R), 2+ carotid (L) Lymphatic: No Adenopathy laboratory and microbiology Laboratory Tests 05/14/25 03:48 Test 05/14/25 03:48 Range/Units Serum Glucose 99 74-106 mg/dL Problem List PERITONITIS ASICITES CIRRHOSIS HFrEF S/P BIV AICD ACUTE RENAL FAILURE Assessment/Plan ABX S/P PARACENTESIS SLOW VOLUME REPLETION WITH ALBUMIN fFLUID Plan discussed with: Patient RUDY CHAKRABORTY MD May 14, 2025 12:41
[2025-05-14 14:07] LABS: Glucose, Body Fluid 96.0 mg/dL (.); LD, Body Fluid 671.0 IU/L (.)
[2025-05-14] MEDS: VANCOMYCIN 1GM/250ML KIT 250 ML IV ONE (15:26)
[2025-05-14] MEDS: OCTREOTIDE ACETATE 100 MCG/ML VL SUBCUT SCH (15:27)
[2025-05-14 18:14] LABS: Protein, Urine 65.9 mg/dL (1-14)
[2025-05-14] MEDS: LACTULOSE 20Gm/30ML SOLN PO SCH (21:43)
[2025-05-14] MEDS: TEMAZEPAM 15 MG CAP PO PRN (21:47)
[2025-05-15] VITALS (9 sets, daily range): BP systolic 112–120; BP diastolic 54–69; PULSE 71–78; RESP 18–20; TEMP 97.3–98.4; O2SAT 97–99
[2025-05-15 06:05] LABS: Hematocrit 37.0 % (36.0-46.0); Hemoglobin 12.3 g/dL (12.2-16.2); Mean Corpuscular Hemoglobin 30.2 pg (28.0-32.0); Mean Corpuscular Volume 90.7 fL (80.0-100.0); Nucleated Red Blood Cells % 0.1 %
[2025-05-15 06:13] LABS: Chloride 100 mmol/L (98-107); Potassium 4.4 mmol/L (3.5-5.1); Sodium 138 mmol/L (136-145)
[2025-05-15 06:14] LABS: Anion Gap 10 (5-15); Carbon Dioxide 28 mmol/L (20-31)
[2025-05-15 06:15] LABS: Calcium 9.2 mg/dL (8.7-10.4)
[2025-05-15 06:19] LABS: BUN/Creatinine Ratio 11.3 (10.0-20.0)
[2025-05-15 06:22] LABS: Blood Urea Nitrogen 37 mg/dL (9-23); Glucose 151 mg/dL (74-106)
[2025-05-15] MEDS: PANTOPRAZOLE 40 MG/10 ML VIAL INJ IV SCH (10:23)
--- NOTE | 2025-05-15 11:06 | DVHPN2 ---
Progress Note Date Seen: May 15, 2025 Medical Necessity Reason Pt with a Central, PICC or Fol: No Subjective Patient reports: No new complaints Review of Systems: HEENT:Normal, CVS:Normal, RESPIRATORY:Normal, GI:Normal, :Normal, MSK:Normal, NEURO:Normal Objective vital signs Vital Sign Date Time Temp Pulse Resp B/P (MAP) Pulse Ox O2 Delivery O2 Flow Rate FiO2 05/15/25 09:00 97.8 71 20 113/54 (73) 97 97.8 05/15/25 07:05 Nasal Cannula* 2 28 Total Intake and Output 05/14/25 05/14/25 05/15/25 15:00 23:00 07:00 Intake Total 50 ml 900 ml 150 ml Balance 50 ml 900 ml 150 ml medications Current Medications Medications Dose Ordered Sig/Andrew Route Start Time Stop Time Status Last Admin Dose Admin Ceftriaxone Sodium 50 ml @ 100 mls/hr DAILY@09 IV 05/13/25 09:00 05/15/25 10:35 100 MLS/HR Albuterol 2.5 mg Q6HPRN PRN NEB 05/13/25 00:45 Cancel Acetaminophen/ Hydrocodone Bitart 1 tab Q4HP PRN PO 05/13/25 00:45 Ondansetron HCl 4 mg Q4HP PRN IV 05/13/25 00:45 Acetaminophen 650 mg Q6HP PRN PO 05/13/25 00:45 Octreotide Acetate 100 mcg TID SUBCUT 05/14/25 14:00 05/15/25 05:43 100 MCG Lactulose 30 ml BID PO 05/14/25 22:00 05/15/25 10:25 30 ML Temazepam 15 mg HSPRN PRN PO 05/14/25 10:30 05/14/25 21:47 15 MG Pantoprazole Sodium 40 mg DAILY IV 05/15/25 10:00 05/15/25 10:23 40 MG Albumin Human 50 ml @ 100 mls/hr Q8H IV 05/14/25 20:00 05/15/25 12:29 05/15/25 04:00 100 MLS/HR Examination: GENERAL:Normal, HEENT:Normal, NECK:Normal, LUNGS:Normal, CVS:Normal, ABDOMEN:Normal, MSK:Normal, SKIN:Normal, NEURO:Normal, :Normal laboratory and microbiology Laboratory Tests 05/15/25 05:51 Test 05/15/25 05:51 Range/Units Serum Glucose 151 H 74-106 mg/dL Microbiology Date/Time Source Procedure Growth Status 05/13/25 09:40 Ascities Fluid Gram Stain - Final Resulted 05/13/25 09:40 Ascities Fluid Body Fluid Culture - Preliminary Resulted 05/12/25 23:25 Blood Blood Culture - Preliminary NO GROWTH AFTER 48 HOURS OF INCUBATION. Resulted Problem List/Assessment/Plan Problem List/Assessment/Plan #1 ascites: s/p paracentesis #2 liver cirrhosis: check hep panel #3 non hodgkins lymphoma #4 h/o pacer #5 acute renal failure ?vasomotor nephropathy #6 wt loss #7 sepsis with ?sbp: iv rocephin #8 copd #9 omental nodularity #10 diarrhea: check c diff, flagyl advance care planning- full code- time spent 19 mins Plan discussed with: Patient My Orders My Orders Orders - HERB SERRATO MD Procedure Category Date Status Time Cancer Antigen (Ca) LAB 05/14/25 In Process 125 16:26 Metronidazole Ivpb PHA 05/15/25 Verified Flagyl 14:00 Complete Blood Count LAB 05/16/25 Verified 06:00 Date of Service: May 15, 2025 Billing Provider: HERB SERRATO MD Common Visit Codes: [id number] INP/OBS CARE(HIGH) HERB SERRATO MD May 15, 2025 11:06
--- NOTE | 2025-05-15 13:23 | DVHPN2 ---
Progress Note - Dictate Date Seen: May 15, 2025 Medical Necessity Reason Pt with a Central, PICC or Fol: No Subjective PT WITH CAROID STENOSIS S/P CERVICAL SPINE SURGERY CRYPTOGENIC CIRRHOSIS KYLIE HTN VOLUME DEPLETION PROGRESSIVE ASCITES R/O PERITONITIS HFrEF S/P BV AICD vital signs Vital Sign Date Time Temp Pulse Resp B/P (MAP) Pulse Ox O2 Delivery O2 Flow Rate FiO2 05/15/25 09:00 97.8 71 20 113/54 (73) 97 97.8 05/15/25 07:05 Nasal Cannula* 2 28 Total Intake and Output 05/14/25 05/14/25 05/15/25 15:00 23:00 07:00 Intake Total 50 ml 900 ml 150 ml Balance 50 ml 900 ml 150 ml medications Current Medications Medications Dose Ordered Sig/Andrew Route Start Time Stop Time Status Last Admin Dose Admin Ceftriaxone Sodium 50 ml @ 100 mls/hr DAILY@09 IV 05/13/25 09:00 05/15/25 10:35 100 MLS/HR Albuterol 2.5 mg Q6HPRN PRN NEB 05/13/25 00:45 Cancel Acetaminophen/ Hydrocodone Bitart 1 tab Q4HP PRN PO 05/13/25 00:45 Ondansetron HCl 4 mg Q4HP PRN IV 05/13/25 00:45 Acetaminophen 650 mg Q6HP PRN PO 05/13/25 00:45 Octreotide Acetate 100 mcg TID SUBCUT 05/14/25 14:00 05/15/25 05:43 100 MCG Temazepam 15 mg HSPRN PRN PO 05/14/25 10:30 05/14/25 21:47 15 MG Pantoprazole Sodium 40 mg DAILY IV 05/15/25 10:00 05/15/25 10:23 40 MG Metronidazole 100 ml @ 100 mls/hr Q8HR IV 05/15/25 14:00 objective HEENT: Normal ENT Inspection, PERRL/EOMI, Pharynx Normal, TMs Normal, Other (A TINY BLOOD VESSEL ON THE ROOF OF THE MOUTH IS BLEEDING, NO SWELLING AND ACTIVELY BLEEDING. NO BLOOD CLOTS, NO DENTAL AND GUM INFECTION. ) Neck: Full Range of Motion, Non-Tender, Normal, Normal Inspection Respiratory: Chest Non-Tender, Lungs Clear, No Accessory Muscle Use, No Respiratory Distress, Normal Breath Sounds Cardiovascular: No Edema, No JVD, No Murmur, No Gallop, Normal Peripheral Pulses, Regular Rate/Rhythm Breast Exam: Deferred Gastrointestinal: No Organomegaly, + ascite< shifting dullness Genitalia: Deferred Pelvic: Deferred Rectal: Deferred Extremities: No calf tenderness, Normal capillary refill, Normal inspection, Normal range of motion, Non-tender, No pedal edema Musculoskeletal : Apperance: Normal Neurologic: Alert, outdoor emergency care technician II-XII nml as Tested, No Motor Deficits, Normal Affect, Normal Mood, No Sensory Deficits Cerebellar Function: Normal Reflexes: Normal Skin: Dry, Normal Color, Warm Peripheral Pulses: 2+ carotid (R), 2+ carotid (L) Lymphatic: No Adenopathy laboratory and microbiology Laboratory Tests 05/15/25 05:51 Test 05/15/25 05:51 Range/Units Serum Glucose 151 H 74-106 mg/dL Problem List PERITONITIS ASICITES CIRRHOSIS HFrEF S/P BIV AICD ACUTE RENAL FAILURE Assessment/Plan ABX S/P PARACENTESIS SLOW VOLUME REPLETION WITH ALBUMIN fFLUID WBC TRENDING DOWN AFTER VANCO DOSE GIVEN Plan discussed with: Patient RUDY CHAKRABORTY MD May 15, 2025 13:23
--- NOTE | 2025-05-15 13:57 | DVHCONRES ---
Date Seen: May 15, 2025 Resident Creating Document: PATY BURNS RESIDENT Referring Physician Dr. Gao History of Present Illness Patient is an 80-year-old female with past medical history of non-Hodgkin's lymphoma, s/p pacemaker in 2018, fatty liver diagnosed at [facility] several years ago, COPD, chronic respiratory failure on home oxygen 2 L, who initially presented to the hospital for abdominal pain and bloating. According to the patient, over the last 2 weeks she has been experiencing increasing abdominal pain and bloating which initially started with diarrhea and decreased appetite, patient notes symptoms progressively worsened and she became uncomfortable with some shortness of breaths which is what prompted this visit to the hospital. Patient is currently s/p paracentesis with 3.6 L of fluid removed, ascitic fluid WBC 880, RBCs 5112. Patient notes significant improvement in her symptoms since undergoing paracente sis. Past Medical History non-Hodgkin's lymphoma, s/p pacemaker in 2018, fatty liver diagnosed at [facility] several years ago, COPD, chronic respiratory failure on home oxygen 2 L Past Surgical History Splenectomy, knee replacement surgery, retinal detachment repair Family History: FH: cancer G8 MOTHER FH: heart attack G8 MOTHER Family History Ovarian cancer in sister at the age of 75 Bladder cancer in mother Social History Smoking: Quit 20 years ago, prior to that was smoking 1 pack per day for 40 years Alcohol: 4 drinks of beer per week Drugs: Denies Allergies: Coded Allergies: Statins (Verified Allergy, Unknown, 03/11/20) Home Meds Reported Medications Digoxin (Digoxin) 125 Mcg Tab, 1 TAB PO DAILY 05/13/25 Sacubitril-Valsartan (Entresto 24-26 mg) 1 Tab Tab, TAB PO 05/13/25 Ivabradine HCl (Ivabradine Hydrochloride) 5 Mg Tab, 1 TAB PO BID 05/13/25 Metoprolol Succinate (Metoprolol Succinate Er) 50 Mg Tab, 1 TAB PO BID 05/13/25 Current Medications Current Medications Medications (Trade) Dose Ordered Sig/Andrew Route PRN Reason Start Time Stop Time Status Last Admin Octreotide Acetate (SandoSTATIN) 100 mcg TID SUBCUT 05/14/25 14:00 05/15/25 05:43 Lactulose 30 ml BID PO 05/14/25 22:00 05/15/25 11:05 DC 05/15/25 10:25 Pantoprazole Sodium (Protonix) 40 mg DAILY IV 05/15/25 10:00 05/15/25 10:23 Albumin Human 50 ml @ 100 mls/hr Q8H IV 05/14/25 20:00 05/15/25 12:29 DC 05/15/25 04:00 Metronidazole 100 ml @ 100 mls/hr Q8HR IV 05/15/25 14:00 Review of Systems Patient seen and examined at bedside. Patient is alert and oriented to time, place person and responding to all questions. Eyes: No Pain, No Vision change, No Conjunctivae inflammation, No Eyelid inflammation, No Other, No Redness ENT: No Ear pain, No Ear discharge, No Nose pain, No Nose discharge, No Nose congestion, No Mouth pain, No Mouth swelling, No Throat pain, No Throat swelling, No Other Cardiovascular: No Chest Pain, No Palpitations, No Orthopnea, No Paroxysmal No Dyspnea, No Edema, No Lt Headedness, No Other Respiratory: No Cough, No Dry, No Shortness of breath, No SOB with exertion, No Wheezing, No Hemoptysis, No Pleuritic Pain, No Sputum, No Other Gastrointestinal: No Nausea, No Vomiting, No Abdominal Pain, No Diarrhea, No Constipation, No Melena, No Hematochezia, No Other Genitourinary: No Dysuria, No Frequency, No Incontinence, No Hematuria, No Retention, No Other Musculoskeletal: No other, No neck pain, No shoulder pain, No arm pain, No back pain, No hand pain, No leg pain, No foot pain Skin: No Rash, No Lesions, No Jaundice, No Bruising, No Other Vital Signs Vital Signs Date Time Temp Pulse Resp B/P (MAP) Pulse Ox O2 Delivery O2 Flow Rate FiO2 05/15/25 09:00 97.8 71 20 113/54 (73) 97 97.8 05/15/25 07:05 Nasal Cannula* 2 28 Physical Exam General Appearance: Cooperative. Well developed. In mild distress Pulmonary/Respiratory: Equal bilateral air entry Cardiovascular/Chest: Regular rate and rhythm. No murmurs. No JVD. Abdominal Exam: Normal bowel sounds. Distended but Soft. normal abdomen, no visible veins, Nontender. Ankle Exam: Negative ankle edema Neuro/Mental Status: A&O x4. Coherent. Skin Exam: Normal inspection. Normal color. Warm. Dry Labs/Diagnostic Data Labs Test 05/15/25 05:51 05/14/25 10:38 05/14/25 03:48 05/14/25 00:00 Range/Units White Blood Count 15.2 H 4.4-10.8 10^3/uL Red Blood Count 4.08 4.0-5.20 10^6/uL Hemoglobin 12.3 12.2-16.2 g/dL Hematocrit 37.0 36.0-46.0 % Mean Corpuscular Volume 90.7 80.0-100.0 fL Mean Corpuscular Hemoglobin 30.2 28.0-32.0 pg Mean Corpuscular Hemoglobin Concent 33.3 32.0-36.0 g/dL Red Cell Distribution Width 13.2 11.8-14.3 % Platelet Count 254 140-450 10^3/uL Mean Platelet Volume 7.9 6.9-10.8 fL Neutrophils (%) (Auto) 76.2 37.0-80.0 % Lymphocytes (%) (Auto) 8.6 L 10.0-50.0 % Monocytes (%) (Auto) 11.9 0.0-12.0 % Eosinophils (%) (Auto) 2.3 0.0-7.0 % Basophils (%) (Auto) 1.0 0.0-2.0 % Neutrophils # (Auto) 11.6 H 1.6-8.6 10 ^3/uL Lymphocytes # (Auto) 1.3 0.4-5.4 10 ^3/uL Monocytes # (Auto) 1.8 H 0-1.3 10 ^3/uL Eosinophils # (Auto) 0.3 0-0.8 10 ^3/uL Basophils # (Auto) 0.2 0-0.2 10 ^3/uL Nucleated Red Blood Cells 0.1 % Sodium Level 138 136-145 mmol/L Potassium Level 4.4 3.5-5.1 mmol/L Chloride Level 100 98-107 mmol/L Carbon Dioxide Level 28 20-31 mmol/L Anion Gap 10 5-15 Blood Urea Nitrogen 37 H 9-23 mg/dL Creatinine 3.28 H 0.550-1.02 mg/dL Glomerular Filtration Rate Calc 14 >90 mL/min BUN/Creatinine Ratio 11.3 10.0-20.0 Serum Glucose 151 H 74-106 mg/dL Calcium Level 9.2 8.7-10.4 mg/dL Urine Creatinine 91.41 30.0-125.0 mg/dL Urine Sodium 15 L 40-220 mmol/L Prothrombin Time 11.8 9.3-11.8 sec Prothrombin Time INR 1.13 0.9-1.15 Activated Partial Thromboplast Time 33.1 24.5-34.5 SEC Total Bilirubin 0.3 0.2-1.0 mg/dL Aspartate Amino Transferase (AST) 46 H 13-40 U/L Alanine Aminotransferase (ALT) 15 7-40 U/L Alkaline Phosphatase 98 46-116 U/L Total Protein 6.1 5.7-8.2 g/dL Albumin 3.3 3.2-4.8 g/dL Urine Protein/Creatinine Ratio 0.73 Urine Total Protein 65.9 H 1-14 mg/dL Test 05/13/25 14:17 05/13/25 09:40 05/13/25 07:00 05/12/25 23:25 Range/Units Hepatitis A IgM Antibody Negative Hepatitis B Surface Antigen Negative Negative Hepatitis B Core IgM Antibody Negative Negative Hepatitis C Antibody Negative Negative Body Fluid Source Peritoneal fluid Body Fluid pH 8.0 Body Fluid WBC (Manual) 880 H 0-200 CUMM Body Fluid RBC (Manual) 5112 H 0-2000 CUMM Body Fluid Mononuclear Cells 87 % Body Fluid Polymorphonuclear Cells 13 0-25 % Body Fluid Glucose 96 . mg/dL Body Fluid Total Protein 5.3 . g/dL Body Fluid Lactate Dehydrogenase 671 . IU/L Digoxin Level 1.30 0.8-2 ng/mL Lactic Acid Level 1.4 0.4-2.0 mmol/L Test 05/12/25 22:00 Range/Units Urine Color Yellow Yellow Urine Clarity Clear Clear Urine pH 5.0 5.0-9.0 Urine Specific [place] 1.015 1.001-1.035 Urine Protein 1+ H Negative Urine Ketones Trace H Negative Urine Blood Trace H Negative /uL Urine Nitrite Negative Negative Urine Bilirubin Negative Negative Urine Urobilinogen Normal Negative mg/dL Urine Leukocyte Esterase Negative Negative /uL Urine Glucose Normal Normal mg/dL Microbiology Date/Time Source Procedure Growth Status 05/13/25 09:40 Ascities Fluid Gram Stain - Final Resulted 05/13/25 09:40 Ascities Fluid Body Fluid Culture - Preliminary Resulted 05/12/25 23:25 Blood Blood Culture - Preliminary NO GROWTH AFTER 48 HOURS OF INCUBATION. Resulted Assessment Acute intractable abdominal pain, now resolved Abdominal ascites, malignant versus portal hypertension related Omental nodularity on CT abdomen pelvis Peritonitis Acute versus chronic diarrhea History of fatty liver, liver cirrhosis? GEORGE, likely hemodynamically mediated/VMN Chronic respiratory failure History of non-Hodgkin's lymphoma Cholelithiasis Lower GI bleed? Hematochezia versus melena Heart failure with reduced ejection fraction Plan: Request records from [facility]; patient completed colonoscopy and endoscopy 5 years ago at [facility]. Right upper quadrant ultrasound Pending ascitic fluid biopsy results Ordered stool occult blood, stool WBCs, stool bacterial culture Pending CA 19 9, CA 125, CEA Continue antibiotics IV Protonix 40 mg daily Thank you so much for the opportunity to consult on your patient. GI team will follow the patient. In case of any questions or concerns please feel free to reach out. Plan discussed with Dr. Webster Plan discussed with: Patient, Other (RN) PATY BURNS RESIDENT May 15, 2025 13:57
--- NOTE | 2025-05-15 14:36 | DVHPN2 ---
Progress Note Date Seen: May 15, 2025 Medical Necessity Reason Pt with a Central, PICC or Fol: No Subjective Patient reports: Feels better Objective vital signs Vital Sign Date Time Temp Pulse Resp B/P (MAP) Pulse Ox O2 Delivery O2 Flow Rate FiO2 05/15/25 09:00 97.8 71 20 113/54 (73) 97 97.8 05/15/25 07:05 Nasal Cannula* 2 28 Total Intake and Output 05/14/25 05/14/25 05/15/25 15:00 23:00 07:00 Intake Total 50 ml 900 ml 150 ml Balance 50 ml 900 ml 150 ml medications Current Medications Medications Dose Ordered Sig/Andrew Route Start Time Stop Time Status Last Admin Dose Admin Ceftriaxone Sodium 50 ml @ 100 mls/hr DAILY@09 IV 05/13/25 09:00 05/15/25 10:35 100 MLS/HR Albuterol 2.5 mg Q6HPRN PRN NEB 05/13/25 00:45 Cancel Acetaminophen/ Hydrocodone Bitart 1 tab Q4HP PRN PO 05/13/25 00:45 Ondansetron HCl 4 mg Q4HP PRN IV 05/13/25 00:45 Acetaminophen 650 mg Q6HP PRN PO 05/13/25 00:45 Octreotide Acetate 100 mcg TID SUBCUT 05/14/25 14:00 05/15/25 05:43 100 MCG Temazepam 15 mg HSPRN PRN PO 05/14/25 10:30 05/14/25 21:47 15 MG Pantoprazole Sodium 40 mg DAILY IV 05/15/25 10:00 05/15/25 10:23 40 MG Metronidazole 100 ml @ 100 mls/hr Q8HR IV 05/15/25 14:00 Examination: GENERAL:Normal, CVS:Normal laboratory and microbiology Laboratory Tests 05/15/25 05:51 Test 05/15/25 05:51 Range/Units Serum Glucose 151 H 74-106 mg/dL Microbiology Date/Time Source Procedure Growth Status 05/13/25 09:40 Ascities Fluid Gram Stain - Final Resulted 05/13/25 09:40 Ascities Fluid Body Fluid Culture - Preliminary Resulted 05/12/25 23:25 Blood Blood Culture - Preliminary NO GROWTH AFTER 48 HOURS OF INCUBATION. Resulted Problem List/Assessment/Plan Problem List/Assessment/Plan Acute kidney injury hemodynamically mediated cannot exclude ATN/HRS no previous ckd hx GFR > 70 in 2023 new onset Ascites s/p large volume paracentesis given hx nonhodgkin lymphoma there is high concern for malignant ascites overall normal Echo 11/2024 patient reports PPM was placed for type 1 heart block f/u paracentesis results, send for diagnosis f/u cardiology IV albumin completed no emergent indication for dialysis at this time, despite worsening cr send urine studies rec continued w/u of of ascites no nsaids avoid contrast studies obtain records from [place] as baseline renal function was normal less than 1 year ago Plan discussed with: Patient My Orders My Orders Orders - ELENA CULVER MD Procedure Category Date Status Time Communication Order ORDERS 05/14/25 Transmitted 19:50 Total Time (mins): 33 ELENA CULVER MD May 15, 2025 14:36
--- NOTE | 2025-05-15 16:42 | DVH ---
ULTRASOUND ABDOMEN, LIMITED RIGHT UPPER QUADRANT: REASON FOR EXAM: Evaluate right upper quadrant TECHNIQUE: Real-time sector scans in the transverse and longitudinal planes were obtained through th e right upper quadrant of the abdomen. FINDINGS: The liver is within normal limits for size at 16.1 cm in length. The liver surface is mild ly nodular. The liver is diffusely echogenic and has a coarse echotexture. There is a geographic hypo echoic region in the liver parenchyma near the gallbladder fossa measuring approximately 2.5 x 2.7 x 2.0 cm, likely focal fatty sparing. There is hepatopetal flow in the portal vein. There is no intrah epatic nor extrahepatic biliary ductal dilatation. The common bile duct measures 14 mm. The gallblad magali is contracted. No definite gallstones or sludge are identified. There is no gallbladder wall thi ckening nor pericholecystic fluid. There is no sonographic Fuchs's sign. The pancreas is largely obscured by bowel gas. The right kidney measures 11.2 cm. The left kidney measures 10.5 cm. No hydronephrosis or nephrolithi asis is identified. There is no evidence of right renal mass or cyst. The visualized portions of the abdominal aorta demonstrate no evidence of aneurysmal dilatation. The visualized inferior vena cava is unremarkable. There is a small amount of ascites throughout the abdomen. IMPRESSION: Nodular liver surface suggestive of cirrhosis. Small amount of ascites throughout the abdomen. Contracted gallbladder. No definite stones identified. No sonographic Fuchs's sign. Enlarged common bile duct at 14 mm. Consider further evaluation of the distal common bile duct with Shelby ARNETT.
[2025-05-16 01:00] VITALS: BP 133/70; PULSE 74; RESP 17; TEMP 97.7; O2SAT 97
[2025-05-16 05:00] VITALS: BP 125/69; PULSE 75; RESP 18; TEMP 97.6; O2SAT 96
[2025-05-16 05:56] LABS: Hematocrit 35.7 % (36.0-46.0); Hemoglobin 12.0 g/dL (12.2-16.2); Mean Corpuscular Hemoglobin 30.4 pg (28.0-32.0); Mean Corpuscular Volume 90.8 fL (80.0-100.0); Nucleated Red Blood Cells % 0.0 %
[2025-05-16 06:01] LABS: Chloride 103 mmol/L (98-107); Potassium 4.1 mmol/L (3.5-5.1); Sodium 140 mmol/L (136-145)
[2025-05-16 06:02] LABS: Anion Gap 9 (5-15); Calcium 8.8 mg/dL (8.7-10.4); Carbon Dioxide 28 mmol/L (20-31)
[2025-05-16 06:07] LABS: BUN/Creatinine Ratio 12.8 (10.0-20.0)
[2025-05-16 06:10] LABS: Blood Urea Nitrogen 36 mg/dL (9-23); Glucose 141 mg/dL (74-106)
[2025-05-16 08:53] VITALS: BP 108/61; PULSE 72; RESP 16; TEMP 97.7; O2SAT 98
--- NOTE | 2025-05-16 09:27 | DVHPN2 ---
Progress Note Date Seen: May 16, 2025 Resident Creating Document: PATY BURNS RESIDENT Medical Necessity Reason Pt with a Central, PICC or Fol: No Subjective Review of Systems Patient seen and examined at bedside Denies any nausea or vomiting Notes good appetite today Three bowel movements over 24 hours, watery and nonbloody, mucoid in consistency Objective vital signs Vital Sign Date Time Temp Pulse Resp B/P (MAP) Pulse Ox O2 Delivery O2 Flow Rate FiO2 05/16/25 08:53 97.7 72 16 108/61 (77) 98 97.7 05/15/25 20:00 Room Air* 0 21 Total Intake and Output 05/15/25 05/15/25 05/16/25 15:00 23:00 07:00 Intake Total 550 ml 200 ml Output Total 0 ml Balance 550 ml 200 ml medications Current Medications Medications Dose Ordered Sig/Andrew Route Start Time Stop Time Status Last Admin Dose Admin Ceftriaxone Sodium 50 ml @ 100 mls/hr DAILY@09 IV 05/13/25 09:00 05/15/25 10:35 100 MLS/HR Albuterol 2.5 mg Q6HPRN PRN NEB 05/13/25 00:45 Cancel Acetaminophen/ Hydrocodone Bitart 1 tab Q4HP PRN PO 05/13/25 00:45 Ondansetron HCl 4 mg Q4HP PRN IV 05/13/25 00:45 Acetaminophen 650 mg Q6HP PRN PO 05/13/25 00:45 Octreotide Acetate 100 mcg TID SUBCUT 05/14/25 14:00 05/16/25 05:58 100 MCG Temazepam 15 mg HSPRN PRN PO 05/14/25 10:30 05/15/25 22:00 15 MG Pantoprazole Sodium 40 mg DAILY IV 05/15/25 10:00 05/15/25 10:23 40 MG Metronidazole 100 ml @ 100 mls/hr Q8HR IV 05/15/25 14:00 05/16/25 05:59 100 MLS/HR Examination General Appearance: Cooperative. Well developed. In mild distress Pulmonary/Respiratory: Equal bilateral air entry Cardiovascular/Chest: Regular rate and rhythm. No murmurs. No JVD. Abdominal Exam: Normal bowel sounds. Distended but Soft. normal abdomen, no visible veins, Nontender. Ankle Exam: Negative ankle edema Neuro/Mental Status: A&O x4. Coherent. Skin Exam: Normal inspection. Normal color. Warm. Dry laboratory and microbiology Laboratory Tests 05/16/25 05:18 Test 05/16/25 05:18 Range/Units Serum Glucose 141 H 74-106 mg/dL Microbiology Date/Time Source Procedure Growth Status 05/13/25 09:40 Ascities Fluid Gram Stain - Final Resulted 05/13/25 09:40 Ascities Fluid Body Fluid Culture - Preliminary Resulted 05/12/25 23:25 Blood Blood Culture - Preliminary NO GROWTH AFTER 72 HOURS OF INCUBATION. Resulted Labs and/or images reviewed: Labs reviewed by me, Image(s) reviewed by me Problem List/Assessment/Plan Problem List/Assessment/Plan Acute intractable abdominal pain, now resolved Abdominal ascites, malignant versus portal hypertension related Omental nodularity on CT abdomen pelvis Peritonitis Acute versus chronic diarrhea History of fatty liver, liver cirrhosis? GEORGE, likely hemodynamically mediated/VMN Chronic respiratory failure History of non-Hodgkin's lymphoma Cholelithiasis Lower GI bleed? Hematochezia versus melena Heart failure with reduced ejection fraction Plan: Ordered MRCP Request records from [place]; patient completed colonoscopy and endoscopy 5 years ago at [place]. Right upper quadrant ultrasound: Nodular liver surface suggestive of cirrhosis. Small amount of ascites throughout the abdomen. Contracted gallbladder. No definite stones identified. No sonographic Fuchs's sign. Enlarged common bile duct at 14 mm. Pending ascitic fluid biopsy results Ordered stool occult blood, stool WBCs, stool bacterial culture elevated CA 19 9, CA 125 and CEA Continue antibiotics IV Protonix 40 mg daily Consider referral back to [facility] for HLOC Thank you so much for the opportunity to consult on your patient. GI team will follow the patient. In case of any questions or concerns please feel free to reach out. Plan discussed with Dr. Webster Plan discussed with: Patient, Other (RN) My Orders My Orders Orders - PATY BURNS RESIDENT Procedure Category Date Status Time Abdomen Limited US 05/15/25 Resulted 13:55 Stool Occult Blood LAB 05/15/25 Logged 16:05 Stool Wbc LAB 05/15/25 Logged 16:05 Stool Bacterial GIL 05/15/25 Logged Culture 16:05 PATY BURNS RESIDENT May 16, 2025 09:27
--- NOTE | 2025-05-16 10:52 | DVHPN2 ---
Progress Note - Dictate Date Seen: May 16, 2025 Medical Necessity Reason Pt with a Central, PICC or Fol: No Subjective PT WITH CAROID STENOSIS S/P CERVICAL SPINE SURGERY CRYPTOGENIC CIRRHOSIS KYLIE HTN VOLUME DEPLETION PROGRESSIVE ASCITES R/O PERITONITIS HFrEF S/P BV AICD vital signs Vital Sign Date Time Temp Pulse Resp B/P (MAP) Pulse Ox O2 Delivery O2 Flow Rate FiO2 05/16/25 08:53 97.7 72 16 108/61 (77) 98 97.7 05/15/25 20:00 Room Air* 0 21 Total Intake and Output 05/15/25 05/15/25 05/16/25 15:00 23:00 07:00 Intake Total 550 ml 200 ml Output Total 0 ml Balance 550 ml 200 ml medications Current Medications Medications Dose Ordered Sig/Andrew Route Start Time Stop Time Status Last Admin Dose Admin Ceftriaxone Sodium 50 ml @ 100 mls/hr DAILY@09 IV 05/13/25 09:00 05/15/25 10:35 100 MLS/HR Albuterol 2.5 mg Q6HPRN PRN NEB 05/13/25 00:45 Cancel Acetaminophen/ Hydrocodone Bitart 1 tab Q4HP PRN PO 05/13/25 00:45 Ondansetron HCl 4 mg Q4HP PRN IV 05/13/25 00:45 Acetaminophen 650 mg Q6HP PRN PO 05/13/25 00:45 Octreotide Acetate 100 mcg TID SUBCUT 05/14/25 14:00 05/16/25 05:58 100 MCG Temazepam 15 mg HSPRN PRN PO 05/14/25 10:30 05/15/25 22:00 15 MG Pantoprazole Sodium 40 mg DAILY IV 05/15/25 10:00 05/15/25 10:23 40 MG Metronidazole 100 ml @ 100 mls/hr Q8HR IV 05/15/25 14:00 05/16/25 05:59 100 MLS/HR objective HEENT: Normal ENT Inspection, PERRL/EOMI, Pharynx Normal, TMs Normal, Other (A TINY BLOOD VESSEL ON THE ROOF OF THE MOUTH IS BLEEDING, NO SWELLING AND ACTIVELY BLEEDING. NO BLOOD CLOTS, NO DENTAL AND GUM INFECTION. ) Neck: Full Range of Motion, Non-Tender, Normal, Normal Inspection Respiratory: Chest Non-Tender, Lungs Clear, No Accessory Muscle Use, No Respiratory Distress, Normal Breath Sounds Cardiovascular: No Edema, No JVD, No Murmur, No Gallop, Normal Peripheral Pulses, Regular Rate/Rhythm Breast Exam: Deferred Gastrointestinal: No Organomegaly, + ascite< shifting dullness Genitalia: Deferred Pelvic: Deferred Rectal: Deferred Extremities: No calf tenderness, Normal capillary refill, Normal inspection, Normal range of motion, Non-tender, No pedal edema Musculoskeletal : Apperance: Normal Neurologic: Alert, brick handler II-XII nml as Tested, No Motor Deficits, Normal Affect, Normal Mood, No Sensory Deficits Cerebellar Function: Normal Reflexes: Normal Skin: Dry, Normal Color, Warm Peripheral Pulses: 2+ carotid (R), 2+ carotid (L) Lymphatic: No Adenopathy laboratory and microbiology Laboratory Tests 05/16/25 05:18 Test 05/16/25 05:18 Range/Units Serum Glucose 141 H 74-106 mg/dL Problem List PERITONITIS ASICITES CIRRHOSIS HFrEF S/P BIV AICD ACUTE RENAL FAILURE Assessment/Plan ABX S/P PARACENTESIS SLOW VOLUME REPLETION WITH ALBUMIN fFLUID WBC TRENDING DOWN AFTER VANCO DOSE GIVEN possible gi malignancy GI W/U WILL DISCUSS WITH PT Plan discussed with: Patient RUDY CHAKRABORTY MD May 16, 2025 10:52
[2025-05-16 13:00] VITALS: BP 120/65; PULSE 78; RESP 16; TEMP 98.1; O2SAT 99
--- NOTE | 2025-05-16 13:32 | DVHPN2 ---
Progress Note Date Seen: May 16, 2025 Medical Necessity Reason Pt with a Central, PICC or Fol: No Objective vital signs Vital Sign Date Time Temp Pulse Resp B/P (MAP) Pulse Ox O2 Delivery O2 Flow Rate FiO2 05/16/25 13:00 98.1 78 16 120/65 (83) 99 98.1 05/16/25 08:00 Room Air* 0 21 Total Intake and Output 05/15/25 05/15/25 05/16/25 15:00 23:00 07:00 Intake Total 550 ml 200 ml Output Total 0 ml Balance 550 ml 200 ml medications Current Medications Medications Dose Ordered Sig/Andrew Route Start Time Stop Time Status Last Admin Dose Admin Ceftriaxone Sodium 50 ml @ 100 mls/hr DAILY@09 IV 05/13/25 09:00 05/16/25 11:21 100 MLS/HR Albuterol 2.5 mg Q6HPRN PRN NEB 05/13/25 00:45 Cancel Acetaminophen/ Hydrocodone Bitart 1 tab Q4HP PRN PO 05/13/25 00:45 Ondansetron HCl 4 mg Q4HP PRN IV 05/13/25 00:45 Acetaminophen 650 mg Q6HP PRN PO 05/13/25 00:45 Octreotide Acetate 100 mcg TID SUBCUT 05/14/25 14:00 05/16/25 05:58 100 MCG Temazepam 15 mg HSPRN PRN PO 05/14/25 10:30 05/15/25 22:00 15 MG Pantoprazole Sodium 40 mg DAILY IV 05/15/25 10:00 05/16/25 11:21 40 MG Metronidazole 100 ml @ 100 mls/hr Q8HR IV 05/15/25 14:00 05/16/25 05:59 100 MLS/HR laboratory and microbiology Laboratory Tests 05/16/25 05:18 Test 05/16/25 05:18 Range/Units Serum Glucose 141 H 74-106 mg/dL Microbiology Date/Time Source Procedure Growth Status 05/13/25 09:40 Ascities Fluid Gram Stain - Final Resulted 05/13/25 09:40 Ascities Fluid Body Fluid Culture - Preliminary Resulted 05/12/25 23:25 Blood Blood Culture - Preliminary NO GROWTH AFTER 72 HOURS OF INCUBATION. Resulted Problem List/Assessment/Plan Problem List/Assessment/Plan Acute kidney injury hemodynamically mediated cannot exclude ATN/HRS no previous ckd hx GFR > 70 in 2023 new onset Ascites s/p large volume paracentesis given hx nonhodgkin lymphoma there is high concern for malignant ascites + CA 19.9 and Ca 125 overall normal Echo 11/2024 patient reports PPM was placed for type 1 heart block f/u paracentesis results, f/u cardiology IV albumin completed no emergent indication for dialysis at this time rec continued w/u of ascites high concern for malignancy rec oncology eval no nsaids avoid contrast studies obtain records from [place] as baseline renal function was normal less than 1 year ago patient will require outpatient renal f/u due to severe GEORGE for now continue conservative management Plan discussed with: Patient ELENA CULVER MD May 16, 2025 13:32
[2025-05-16 13:49] LABS: Alanine Aminotransferase 15.0 U/L (7-40); Albumin 3.3 g/dL (3.2-4.8); Alkaline Phosphatase 94.0 U/L (46-116); Total Protein 5.8 g/dL (5.7-8.2)
[2025-05-16 13:54] LABS: Bilirubin, Total 0.2 mg/dL (0.2-1.0)
[2025-05-16 14:21] LABS: Bilirubin, Direct 0.1 mg/dL (<0.3)
--- NOTE | 2025-05-16 15:04 | DVH ---
PROCEDURE: MRI MRCP MRI Indication: CBD dilation to 14 mm COMPARISON: 05/15/2025, 05/13/2025 TECHNIQUE: Multiplanar multisequence images of the abdomen are obtianed per MRCP protocol. FINDINGS: The common appears to be contracted and contains gallstones measuring 13 by 17 mm. Dilatation of the intrahepatic ducts up to 6 mm. Dilated CBD measuring 14 mm. Abrupt tapering of the distal cBD/periamp ullary region. Duodenal diverticulum measuring 2.7 cm. No hydronephrosis. Liver capsule nodular in morphology. Small to moderate volume of ascites fluid. Adrenal glands unremarkable. Pancreatic parenchymal atrophy/fatty infiltration. Tiny pancreatic T2 br ight lesions measuring up to 4 mm. Pancreatic duct normal in caliber measuring 2 mm. There are tiny bilateral pleural effusions. Extensive omental caking/ peritoneal nodularity most pronounced along the anterior abdomen and right abdomen. IMPRESSION: Gallbladder leon characterize appears to be contracted and containing a 1.7 cm gallstone. Dilated CBD measuring 14 mm. No evidence for choledocholithiasis. Duodenal diverticulum measuring 2.7 cm. Pancreatic parenchymal atrophy. Small pancreatic cystic lesions up to 4 mm with differential conside rations including IPMN, cyst, pseudocyst, cystic neoplasm. Recommend continued imaging surveillance a nd surgical consultation for management. Cirrhotic morphology liver and [id number] volume of ascites fluid. Extensive omental caking/ peritoneal nodularity consistent with metastatic disease /carcinomatosis. Other findings as described
--- NOTE | 2025-05-16 15:32 | DVHPN2 ---
Progress Note Date Seen: May 16, 2025 Medical Necessity Reason Pt with a Central, PICC or Fol: No Subjective Patient reports: No new complaints Review of Systems: HEENT:Normal, CVS:Normal, RESPIRATORY:Normal, GI:Normal, :Normal, MSK:Normal, NEURO:Normal Objective vital signs Vital Sign Date Time Temp Pulse Resp B/P (MAP) Pulse Ox O2 Delivery O2 Flow Rate FiO2 05/16/25 13:00 98.1 78 16 120/65 (83) 99 98.1 05/16/25 08:00 Room Air* 0 21 Total Intake and Output 05/15/25 05/15/25 05/16/25 15:00 23:00 07:00 Intake Total 550 ml 200 ml Output Total 0 ml Balance 550 ml 200 ml medications Current Medications Medications Dose Ordered Sig/Andrew Route Start Time Stop Time Status Last Admin Dose Admin Ceftriaxone Sodium 50 ml @ 100 mls/hr DAILY@09 IV 05/13/25 09:00 05/16/25 11:21 100 MLS/HR Albuterol 2.5 mg Q6HPRN PRN NEB 05/13/25 00:45 Cancel Acetaminophen/ Hydrocodone Bitart 1 tab Q4HP PRN PO 05/13/25 00:45 Ondansetron HCl 4 mg Q4HP PRN IV 05/13/25 00:45 Acetaminophen 650 mg Q6HP PRN PO 05/13/25 00:45 Octreotide Acetate 100 mcg TID SUBCUT 05/14/25 14:00 05/16/25 05:58 100 MCG Temazepam 15 mg HSPRN PRN PO 05/14/25 10:30 05/15/25 22:00 15 MG Pantoprazole Sodium 40 mg DAILY IV 05/15/25 10:00 05/16/25 11:21 40 MG Metronidazole 100 ml @ 100 mls/hr Q8HR IV 05/15/25 14:00 05/16/25 15:23 100 MLS/HR Examination: GENERAL:Normal, HEENT:Normal, NECK:Normal, LUNGS:Normal, CVS:Normal, ABDOMEN:Normal, MSK:Normal, SKIN:Normal, NEURO:Normal, :Normal laboratory and microbiology Laboratory Tests 05/16/25 05:18 Test 05/16/25 05:18 Range/Units Serum Glucose 141 H 74-106 mg/dL Microbiology Date/Time Source Procedure Growth Status 05/13/25 09:40 Ascities Fluid Gram Stain - Final Resulted 05/13/25 09:40 Ascities Fluid Body Fluid Culture - Preliminary Resulted 05/12/25 23:25 Blood Blood Culture - Preliminary NO GROWTH AFTER 72 HOURS OF INCUBATION. Resulted Problem List/Assessment/Plan Problem List/Assessment/Plan #1 ascites: s/p paracentesis #2 liver cirrhosis: check hep panel #3 non hodgkins lymphoma #4 h/o pacer #5 acute renal failure ?vasomotor nephropathy #6 wt loss #7 sepsis with ?sbp: iv rocephin #8 copd #9 omental nodularity- malignant cells in ascitic fluid: mrcp pending, gi eval, elevated ca 19-9 #10 diarrhea: check c diff, flagyl advance care planning- full code- time spent 19 mins Plan discussed with: Patient Date of Service: May 16, 2025 Billing Provider: HERB SERRATO MD Common Visit Codes: [id number] INP/OBS CARE(HIGH) HERB SERRATO MD May 16, 2025 15:32
[2025-05-16 16:56] VITALS: BP 117/71; PULSE 73; RESP 16; TEMP 98.4; O2SAT 99
[2025-05-16 20:58] VITALS: BP 127/76; PULSE 79; RESP 18; TEMP 97.8; O2SAT 98
[2025-05-17 00:44] VITALS: BP_SYST 100; BP_SYST 135; BP_DIAS 61; BP_DIAS 76; PULSE 70; PULSE 87; RESP 16; RESP 18; TEMP 97.9; TEMP 98.1; O2SAT 96; O2SAT 98
[2025-05-17 05:00] VITALS: BP 110/67; PULSE 78; RESP 18; TEMP 98.2; O2SAT 98
[2025-05-17 05:55] LABS: Hematocrit 38.2 % (36.0-46.0); Hemoglobin 12.7 g/dL (12.2-16.2); Mean Corpuscular Hemoglobin 30.3 pg (28.0-32.0); Mean Corpuscular Volume 90.9 fL (80.0-100.0); Nucleated Red Blood Cells % 0.1 %
[2025-05-17 06:00] LABS: Chloride 102 mmol/L (98-107); Potassium 4.5 mmol/L (3.5-5.1); Sodium 138 mmol/L (136-145)
[2025-05-17 06:01] LABS: Anion Gap 10 (5-15); Carbon Dioxide 26 mmol/L (20-31)
[2025-05-17 06:05] LABS: Calcium 8.7 mg/dL (8.7-10.4)
[2025-05-17 06:07] LABS: BUN/Creatinine Ratio 13.1 (10.0-20.0); Blood Urea Nitrogen 33 mg/dL (9-23); Glucose 129 mg/dL (74-106)
--- NOTE | 2025-05-17 10:36 | DVHPN2 ---
Progress Note - Dictate Date Seen: May 17, 2025 Medical Necessity Reason Pt with a Central, PICC or Fol: No Subjective No new complaints Leukocytosis and renal function are improving Patient is on IV antibiotics Ascitic fluid cytology showed malignant cells possibly from upper GI or pancreatic or biliary origin vital signs Vital Sign Date Time Temp Pulse Resp B/P (MAP) Pulse Ox O2 Delivery O2 Flow Rate FiO2 05/17/25 08:00 Nasal Cannula* 2 28 05/17/25 05:00 98.2 78 18 110/67 (81) 98 98.2 Total Intake and Output 05/16/25 05/16/25 05/17/25 15:00 23:00 07:00 Intake Total 50 ml 900 ml 480 ml Balance 50 ml 900 ml 480 ml medications Current Medications Medications Dose Ordered Sig/Andrew Route Start Time Stop Time Status Last Admin Dose Admin Ceftriaxone Sodium 50 ml @ 100 mls/hr DAILY@09 IV 05/13/25 09:00 05/17/25 09:48 100 MLS/HR Albuterol 2.5 mg Q6HPRN PRN NEB 05/13/25 00:45 Cancel Acetaminophen/ Hydrocodone Bitart 1 tab Q4HP PRN PO 05/13/25 00:45 Ondansetron HCl 4 mg Q4HP PRN IV 05/13/25 00:45 Acetaminophen 650 mg Q6HP PRN PO 05/13/25 00:45 Octreotide Acetate 100 mcg TID SUBCUT 05/14/25 14:00 05/17/25 06:12 100 MCG Temazepam 15 mg HSPRN PRN PO 05/14/25 10:30 05/16/25 21:56 15 MG Pantoprazole Sodium 40 mg DAILY IV 05/15/25 10:00 05/17/25 09:48 40 MG Metronidazole 100 ml @ 100 mls/hr Q8HR IV 05/15/25 14:00 05/17/25 06:11 100 MLS/HR objective General Appearance: Cooperative. Well developed. In no distress Pulmonary/Respiratory: Equal bilateral air entry Cardiovascular/Chest: Regular rate and rhythm. No murmurs. No JVD. Abdominal Exam: Normal bowel sounds. Distended but Soft. normal abdomen, no visible veins, Nontender. Ankle Exam: Negative ankle edema Neuro/Mental Status: A&O x4. Coherent. Skin Exam: Normal inspection. Normal color. Warm. Dry laboratory and microbiology Laboratory Tests 05/17/25 05:21 Test 05/17/25 05:21 Range/Units Serum Glucose 129 H 74-106 mg/dL Problems(with codes): (1) Abdominal ascites (2) GEORGE (acute kidney injury) (3) Malignant ascites Prognosis Plan All tumor markers are elevated and ascitic fluid is showing malignant ascites ; awaiting final immunostains Recommend consideration of referral to higher level of care like [facility] or [facility] possibly as an outpt where patient has had previous GI workup If patient is still an inpatient over the weekend I can schedule her for a possible endoscopy on 05/20/2025 Plan discussed with: Patient, Other (Dr Panchal and Dr Nair) LALI WILSON MD May 17, 2025 10:36
--- NOTE | 2025-05-17 12:33 | DVHPN2 ---
Subjective Patient denies any symptoms at this time. Reviewed: Care Plan, H&P, Labs, Medications Changes from previous H/P or p: No Changes General: Per HPI Objective Vitals Vital Signs Date Time Temp Pulse Resp B/P (MAP) Pulse Ox O2 Delivery O2 Flow Rate FiO2 05/17/25 08:00 Nasal Cannula* 2 28 05/17/25 05:00 98.2 78 18 110/67 (81) 98 98.2 Intake/Output Intake and Output 05/17/25 07:00 Intake Total 1430 ml Balance 1430 ml Intake Oral 1180 ml IV Total 250 ml # Voids 6 # Bowel Movements 2 General Appearance: Alert, Oriented X3, Cooperative, No acute distress HEENT: Atraumatic, PERRLA, Mucous membr. moist/pink Lungs: Clear to auscultation, Normal air movement Cardiovascular: Normal S1, Normal S2 Abdomen: Normal bowel sounds, Soft, No tenderness Musculoskeletal: Normal sensory function, Normal motor function Neuro: Normal gait, Normal speech Skin: Cyanosis, Dry, Intact Psych/Mental Status: Mental status NL, Mood NL Medications Current Medications Medications Dose Ordered Sig/Andrew Route Start Time Stop Time Status Last Admin Dose Admin Ceftriaxone Sodium 50 ml @ 100 mls/hr DAILY@09 IV 05/13/25 09:00 05/17/25 09:48 100 MLS/HR Albuterol 2.5 mg Q6HPRN PRN NEB 05/13/25 00:45 Cancel Acetaminophen/ Hydrocodone Bitart 1 tab Q4HP PRN PO 05/13/25 00:45 Ondansetron HCl 4 mg Q4HP PRN IV 05/13/25 00:45 Acetaminophen 650 mg Q6HP PRN PO 05/13/25 00:45 Octreotide Acetate 100 mcg TID SUBCUT 05/14/25 14:00 05/17/25 06:12 100 MCG Temazepam 15 mg HSPRN PRN PO 05/14/25 10:30 05/16/25 21:56 15 MG Pantoprazole Sodium 40 mg DAILY IV 05/15/25 10:00 05/17/25 09:48 40 MG Metronidazole 100 ml @ 100 mls/hr Q8HR IV 05/15/25 14:00 05/17/25 06:11 100 MLS/HR Laboratory Results Laboratory Tests 05/17/25 05:21 Chemistry Test 05/17/25 05:21 Calcium Level 8.7 mg/dL (8.7-10.4) Urinalysis Test 05/12/25 22:00 05/14/25 00:00 05/14/25 10:38 Urine Color Yellow (Yellow) Urine Clarity Clear (Clear) Urine pH 5.0 (5.0-9.0) Urine Specific [place] 1.015 (1.001-1.035) Urine Protein 1+ (Negative) H Urine Ketones Trace (Negative) H Urine Blood Trace /uL (Negative) H Urine Nitrite Negative (Negative) Urine Bilirubin Negative (Negative) Urine Urobilinogen Normal mg/dL (Negative) Urine Leukocyte Esterase Negative /uL (Negative) Urine Glucose Normal mg/dL (Normal) Urine Protein/Creatinine Ratio 0.73 Urine Total Protein 65.9 mg/dL (1-14) H Urine Creatinine 91.41 mg/dL (30.0-125.0) Urine Sodium 15 mmol/L (40-220) L Microbiology Microbiology Date/Time Source Procedure Growth Status 05/13/25 09:40 Ascities Fluid Gram Stain - Final Resulted 05/13/25 09:40 Ascities Fluid Body Fluid Culture - Preliminary Resulted 05/12/25 23:25 Blood Blood Culture - Preliminary NO GROWTH AFTER 72 HOURS OF INCUBATION. Resulted Labs and/or images reviewed: Labs reviewed by me, Image(s) reviewed by me Assessment/Plan Assessment/Plan Impression: -ascites -questionable liver cirrhosis -history of non-Hodgkin's lymphoma -history of pacemaker implant -acute kidney injury, vasomotor nephropathy -questionable sepsis secondary to spontaneous bacterial peritonitis -COPD -peritoneal carcinomatosis. -acute hypoxic respiratory failure Events: -discussed findings of MRI results as well as cancer workup. Plan of care discussed regarding possible discharge with follow up at higher level counter as an outpatient versus staying for EGD to be performed this coming Tuesday for further diagnostic testing. Patient is requesting to stay until Tuesday for EGD. -GI consultation -continue Rocephin and Flagyl -peritoneal fluid pathology pending -O2 supplementation to keep saturation greater than 90% -further course of care per findings on EGD Total time spent with patient discussing and formulating plan of care: 35 minutes. This medical document was created using an electronic medical record system with [employer] dictation system. Although this document has been carefully reviewed, there may still be some phonetic and typographical errors. These areas are purely typographical due to imperfections of the software programs, and do not reflect any compromise in the patient's medical care. Plan discussed with: Patient, Other (RN) Date of Service: May 17, 2025 Billing Provider: KENNETH CORBETT NP Common Visit Codes: [id number] INP/OBS CARE(HIGH) KENNETH CORBETT NP May 17, 2025 12:33
[2025-05-17 12:59] VITALS: BP 123/72; PULSE 76; RESP 18; TEMP 96.2; O2SAT 99
--- NOTE | 2025-05-17 14:50 | DVHPN2 ---
Progress Note - Dictate Date Seen: May 17, 2025 Medical Necessity Reason Pt with a Central, PICC or Fol: No Subjective PT WITH CAROID STENOSIS S/P CERVICAL SPINE SURGERY CRYPTOGENIC CIRRHOSIS KYLIE HTN VOLUME DEPLETION PROGRESSIVE ASCITES R/O PERITONITIS HFrEF S/P BV AICD vital signs Vital Sign Date Time Temp Pulse Resp B/P (MAP) Pulse Ox O2 Delivery O2 Flow Rate FiO2 05/17/25 12:59 96.2 76 18 123/72 (89) 99 96.2 05/17/25 08:00 Nasal Cannula* 2 28 Total Intake and Output 05/16/25 05/16/25 05/17/25 15:00 23:00 07:00 Intake Total 50 ml 900 ml 480 ml Balance 50 ml 900 ml 480 ml medications Current Medications Medications Dose Ordered Sig/Andrew Route Start Time Stop Time Status Last Admin Dose Admin Ceftriaxone Sodium 50 ml @ 100 mls/hr DAILY@09 IV 05/13/25 09:00 05/17/25 09:48 100 MLS/HR Albuterol 2.5 mg Q6HPRN PRN NEB 05/13/25 00:45 Cancel Acetaminophen/ Hydrocodone Bitart 1 tab Q4HP PRN PO 05/13/25 00:45 Ondansetron HCl 4 mg Q4HP PRN IV 05/13/25 00:45 Acetaminophen 650 mg Q6HP PRN PO 05/13/25 00:45 Octreotide Acetate 100 mcg TID SUBCUT 05/14/25 14:00 05/17/25 13:38 100 MCG Temazepam 15 mg HSPRN PRN PO 05/14/25 10:30 05/16/25 21:56 15 MG Pantoprazole Sodium 40 mg DAILY IV 05/15/25 10:00 05/17/25 09:48 40 MG Metronidazole 100 ml @ 100 mls/hr Q8HR IV 05/15/25 14:00 05/17/25 13:37 100 MLS/HR objective HEENT: Normal ENT Inspection, PERRL/EOMI, Pharynx Normal, TMs Normal, Other (A TINY BLOOD VESSEL ON THE ROOF OF THE MOUTH IS BLEEDING, NO SWELLING AND ACTIVELY BLEEDING. NO BLOOD CLOTS, NO DENTAL AND GUM INFECTION. ) Neck: Full Range of Motion, Non-Tender, Normal, Normal Inspection Respiratory: Chest Non-Tender, Lungs Clear, No Accessory Muscle Use, No Respiratory Distress, Normal Breath Sounds Cardiovascular: No Edema, No JVD, No Murmur, No Gallop, Normal Peripheral Pulses, Regular Rate/Rhythm Breast Exam: Deferred Gastrointestinal: No Organomegaly, + ascite< shifting dullness Genitalia: Deferred Pelvic: Deferred Rectal: Deferred Extremities: No calf tenderness, Normal capillary refill, Normal inspection, Normal range of motion, Non-tender, No pedal edema Musculoskeletal : Apperance: Normal Neurologic: Alert, wood hacker II-XII nml as Tested, No Motor Deficits, Normal Affect, Normal Mood, No Sensory Deficits Cerebellar Function: Normal Reflexes: Normal Skin: Dry, Normal Color, Warm Peripheral Pulses: 2+ carotid (R), 2+ carotid (L) Lymphatic: No Adenopathy laboratory and microbiology Laboratory Tests 05/17/25 05:21 Test 05/17/25 05:21 Range/Units Serum Glucose 129 H 74-106 mg/dL Problem List PERITONITIS ASICITES CIRRHOSIS HFrEF S/P BIV AICD ACUTE RENAL FAILURE Assessment/Plan ABX S/P PARACENTESIS SLOW VOLUME REPLETION WITH ALBUMIN fFLUID WBC TRENDING DOWN AFTER VANCO DOSE GIVEN possible gi malignancy GI W/U WILL DISCUSS WITH PT SHE WANS REFERAL TO [facility] SINCE NON HD LYMPHOMA WAS TREATED AT [facility] Dietary Evaluation Review Comments: Nutrition Recommendation: 1) Consider 2 gm Na diet 2) Monitor PO intake, lab values, weight trend, and I/O Expected Outcomes/Goals: Lab values to improve Fu 3-5 days Plan discussed with: Patient Critical Care Time(min): 35 RUDY CHAKRABORTY MD May 17, 2025 14:50
--- NOTE | 2025-05-17 15:23 | DVHPN2 ---
Progress Note Date Seen: May 17, 2025 Medical Necessity Reason Pt with a Central, PICC or Fol: No Subjective Patient reports: No new complaints Objective vital signs Vital Sign Date Time Temp Pulse Resp B/P (MAP) Pulse Ox O2 Delivery O2 Flow Rate FiO2 05/17/25 12:59 96.2 76 18 123/72 (89) 99 96.2 05/17/25 08:00 Nasal Cannula* 2 28 Total Intake and Output 05/16/25 05/16/25 05/17/25 15:00 23:00 07:00 Intake Total 50 ml 900 ml 480 ml Balance 50 ml 900 ml 480 ml medications Current Medications Medications Dose Ordered Sig/Andrew Route Start Time Stop Time Status Last Admin Dose Admin Ceftriaxone Sodium 50 ml @ 100 mls/hr DAILY@09 IV 05/13/25 09:00 05/17/25 09:48 100 MLS/HR Albuterol 2.5 mg Q6HPRN PRN NEB 05/13/25 00:45 Cancel Acetaminophen/ Hydrocodone Bitart 1 tab Q4HP PRN PO 05/13/25 00:45 Ondansetron HCl 4 mg Q4HP PRN IV 05/13/25 00:45 Acetaminophen 650 mg Q6HP PRN PO 05/13/25 00:45 Octreotide Acetate 100 mcg TID SUBCUT 05/14/25 14:00 05/17/25 13:38 100 MCG Temazepam 15 mg HSPRN PRN PO 05/14/25 10:30 05/16/25 21:56 15 MG Pantoprazole Sodium 40 mg DAILY IV 05/15/25 10:00 05/17/25 09:48 40 MG Metronidazole 100 ml @ 100 mls/hr Q8HR IV 05/15/25 14:00 05/17/25 13:37 100 MLS/HR Examination Gen: NAD, appears stated age Lungs: CTA, bilateral air entry Heart: RRR, normal S1 and S2 Ext: No edema Neuro: Alert and oriented x 4 laboratory and microbiology Laboratory Tests 05/17/25 05:21 Test 05/17/25 05:21 Range/Units Serum Glucose 129 H 74-106 mg/dL Microbiology Date/Time Source Procedure Growth Status 05/13/25 09:40 Ascities Fluid Gram Stain - Final Resulted 05/13/25 09:40 Ascities Fluid Body Fluid Culture - Preliminary Resulted 05/12/25 23:25 Blood Blood Culture - Preliminary NO GROWTH AFTER 72 HOURS OF INCUBATION. Resulted Problem List/Assessment/Plan Problem List/Assessment/Plan IMP 1.Acute kidney injury hemodynamically mediated cannot exclude ATN/HRS no previous ckd hx GFR > 70 in 2023 2. New onset Ascites s/p large volume paracentesis given hx nonhodgkin lymphoma there is high concern for malignant ascites + CA 19.9 and Ca 125 patient reports PPM was placed for type 1 heart block REC - Continue serial renal panels - Strict I&O's - Continue avoidance of NSAIDs, and contrast studies if able - Avoidance of ACEI/ARB during time course of GEORGE - No emergent indication for dialysis at this time - Will continue to reevaluate daily for [employer] - Patient will require outpatient follow-up d/t severe GEORGE once discharged Plan discussed with: Patient Dietary Evaluation Review Comments: Nutrition Recommendation: 1) Consider 2 gm Na diet 2) Monitor PO intake, lab values, weight trend, and I/O Expected Outcomes/Goals: Lab values to improve Fu 3-5 days CRISTI BOOTH May 17, 2025 15:22
[2025-05-17 17:00] VITALS: BP 128/74; PULSE 90; RESP 18; TEMP 97.6; O2SAT 97
[2025-05-17 21:00] VITALS: BP 122/85; PULSE 91; RESP 15; TEMP 98.4; O2SAT 98
[2025-05-18] VITALS (7 sets, daily range): BP systolic 117–138; BP diastolic 71–82; PULSE 80–89; RESP 15–18; TEMP 97.8–98.4; O2SAT 96–99
[2025-05-18 07:21] LABS: Chloride 102 mmol/L (98-107); Potassium 4.2 mmol/L (3.5-5.1); Sodium 139 mmol/L (136-145)
[2025-05-18 07:22] LABS: Anion Gap 13 (5-15); Carbon Dioxide 24 mmol/L (20-31)
[2025-05-18 07:27] LABS: BUN/Creatinine Ratio 12.9 (10.0-20.0)
[2025-05-18 07:30] LABS: Blood Urea Nitrogen 32 mg/dL (9-23); Calcium 8.6 mg/dL (8.7-10.4); Glucose 143 mg/dL (74-106)
--- NOTE | 2025-05-18 16:03 | DVHPN2 ---
Progress Note Date Seen: May 18, 2025 Medical Necessity Reason Pt with a Central, PICC or Fol: No Subjective Patient reports: No new complaints Objective vital signs Vital Sign Date Time Temp Pulse Resp B/P (MAP) Pulse Ox O2 Delivery O2 Flow Rate FiO2 05/18/25 12:58 98.2 80 16 121/71 (88) 97 98.2 05/18/25 08:16 Nasal Cannula* 2 28 Total Intake and Output 05/17/25 05/17/25 05/18/25 15:00 23:00 07:00 Intake Total 250 ml 855 ml 500 ml Output Total 500 ml Balance 250 ml 855 ml 0 ml medications Current Medications Medications Dose Ordered Sig/Andrew Route Start Time Stop Time Status Last Admin Dose Admin Ceftriaxone Sodium 50 ml @ 100 mls/hr DAILY@09 IV 05/13/25 09:00 05/18/25 10:02 100 MLS/HR Albuterol 2.5 mg Q6HPRN PRN NEB 05/13/25 00:45 Cancel Acetaminophen/ Hydrocodone Bitart 1 tab Q4HP PRN PO 05/13/25 00:45 Ondansetron HCl 4 mg Q4HP PRN IV 05/13/25 00:45 Acetaminophen 650 mg Q6HP PRN PO 05/13/25 00:45 Octreotide Acetate 100 mcg TID SUBCUT 05/14/25 14:00 05/18/25 13:45 100 MCG Temazepam 15 mg HSPRN PRN PO 05/14/25 10:30 05/17/25 21:13 15 MG Pantoprazole Sodium 40 mg DAILY IV 05/15/25 10:00 05/18/25 10:02 40 MG Metronidazole 100 ml @ 100 mls/hr Q8HR IV 05/15/25 14:00 05/18/25 13:35 100 MLS/HR Examination Gen: NAD, appears stated age Lungs: CTA, bilateral air entry Heart: RRR, normal S1 and S2 Ext: No edema Neuro: Alert and oriented x 4 laboratory and microbiology Laboratory Tests 05/18/25 06:10 05/17/25 05:21 Test 05/18/25 06:10 Range/Units Serum Glucose 143 H 74-106 mg/dL Microbiology Date/Time Source Procedure Growth Status 05/13/25 09:40 Ascities Fluid Gram Stain - Final Complete 05/13/25 09:40 Ascities Fluid Body Fluid Culture - Final Complete 05/12/25 23:25 Blood Blood Culture - Final NO GROWTH AFTER 5 DAYS OF INCUBATION. Complete Labs and/or images reviewed: Labs reviewed by me Problem List/Assessment/Plan Problem List/Assessment/Plan IMP 1.Acute kidney injury hemodynamically mediated cannot exclude ATN/HRS no previous ckd hx GFR > 70 in 2023 2. 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
--- NOTE | 2025-05-18 17:53 | DVHPN2 ---
Subjective BETTER Reviewed: Care Plan, H&P, Labs, Medications, Previous Orders, Radiology Changes from previous H/P or p: No Changes General: Per HPI Objective Vitals Vital Signs Date Time Temp Pulse Resp B/P (MAP) Pulse Ox O2 Delivery O2 Flow Rate FiO2 05/18/25 17:00 98.4 86 18 138/80 (99) 97 98.4 05/18/25 08:16 Nasal Cannula* 2 28 Intake/Output Intake and Output 05/18/25 07:00 Intake Total 1605 ml Output Total 500 ml Balance 1105 ml Intake Oral 1255 ml IV Total 350 ml Output Urine Total 500 ml # Voids 10 # Bowel Movements 3 General Appearance: Alert, Oriented X3, Cooperative, No acute distress HEENT: Atraumatic Lungs: Clear to auscultation, Normal air movement Cardiovascular: Regular rate Abdomen: Normal bowel sounds, Soft, No tenderness Medications Current Medications Medications Dose Ordered Sig/Andrew Route Start Time Stop Time Status Last Admin Dose Admin Ceftriaxone Sodium 50 ml @ 100 mls/hr DAILY@09 IV 05/13/25 09:00 05/18/25 10:02 100 MLS/HR Albuterol 2.5 mg Q6HPRN PRN NEB 05/13/25 00:45 Cancel Acetaminophen/ Hydrocodone Bitart 1 tab Q4HP PRN PO 05/13/25 00:45 Ondansetron HCl 4 mg Q4HP PRN IV 05/13/25 00:45 Acetaminophen 650 mg Q6HP PRN PO 05/13/25 00:45 Octreotide Acetate 100 mcg TID SUBCUT 05/14/25 14:00 05/18/25 13:45 100 MCG Temazepam 15 mg HSPRN PRN PO 05/14/25 10:30 05/17/25 21:13 15 MG Pantoprazole Sodium 40 mg DAILY IV 05/15/25 10:00 05/18/25 10:02 40 MG Metronidazole 100 ml @ 100 mls/hr Q8HR IV 05/15/25 14:00 05/18/25 13:35 100 MLS/HR Laboratory Results Laboratory Tests 05/17/25 05:21 05/18/25 06:10 Chemistry Test 05/18/25 06:10 Calcium Level 8.6 mg/dL (8.7-10.4) L Urinalysis Test 05/12/25 22:00 05/14/25 00:00 05/14/25 10:38 Urine Color Yellow (Yellow) Urine Clarity Clear (Clear) Urine pH 5.0 (5.0-9.0) Urine Specific [place] 1.015 (1.001-1.035) Urine Protein 1+ (Negative) H Urine Ketones Trace (Negative) H Urine Blood Trace /uL (Negative) H Urine Nitrite Negative (Negative) Urine Bilirubin Negative (Negative) Urine Urobilinogen Normal mg/dL (Negative) Urine Leukocyte Esterase Negative /uL (Negative) Urine Glucose Normal mg/dL (Normal) Urine Protein/Creatinine Ratio 0.73 Urine Total Protein 65.9 mg/dL (1-14) H Urine Creatinine 91.41 mg/dL (30.0-125.0) Urine Sodium 15 mmol/L (40-220) L Microbiology Microbiology Date/Time Source Procedure Growth Status 05/13/25 09:40 Ascities Fluid Gram Stain - Final Complete 05/13/25 09:40 Ascities Fluid Body Fluid Culture - Final Complete 05/12/25 23:25 Blood Blood Culture - Final NO GROWTH AFTER 5 DAYS OF INCUBATION. Complete Assessment/Plan Assessment/Plan Abdominal distention with ascites Acute kidney injury Peritoneal carcinomatosis History of Hodgkin lymphoma with possible recurrence Cryptogenic liver cirrhosis Colitis stenosis Pancreatic cyst/possible IPMN Obstructive sleep apnea Status post AICD Status post C-spine surgery Heart failure with reduced ejection fraction Cholelithiasis Leukocytosis Anemia Chronic kidney disease Plan: EGD on Tuesday. Continue current plan of care Plan discussed with: Patient Date of Service: May 18, 2025 Billing Provider: LALY DIAZ MD Common Visit Codes: [id number] INP/OBS CARE(HIGH) LALY DIAZ MD May 18, 2025 17:53
[2025-05-19] VITALS (8 sets, daily range): BP systolic 114–142; BP diastolic 74–88; PULSE 83–91; RESP 15–18; TEMP 97.4–98.5; O2SAT 97–99
[2025-05-19] MEDS: HYDROcodone-ACET 5/325MG TAB PO PRN (06:05)
[2025-05-19 06:41] LABS: Chloride 102 mmol/L (98-107); Potassium 4.4 mmol/L (3.5-5.1); Sodium 137 mmol/L (136-145)
[2025-05-19 06:42] LABS: Anion Gap 12 (5-15); Carbon Dioxide 23 mmol/L (20-31)
[2025-05-19 06:47] LABS: BUN/Creatinine Ratio 13.6 (10.0-20.0)
[2025-05-19 07:05] LABS: Blood Urea Nitrogen 32 mg/dL (9-23); Calcium 8.6 mg/dL (8.7-10.4); Glucose 121 mg/dL (74-106)
--- NOTE | 2025-05-19 15:27 | DVHPN2 ---
Progress Note Date Seen: May 19, 2025 Medical Necessity Reason Pt with a Central, PICC or Fol: No Subjective Patient reports: No new complaints Objective vital signs Vital Sign Date Time Temp Pulse Resp B/P (MAP) Pulse Ox O2 Delivery O2 Flow Rate FiO2 05/19/25 12:39 97.6 91 18 129/84 (99) 97 97.6 05/19/25 08:00 Room Air* 0 21 Total Intake and Output 05/18/25 05/18/25 05/19/25 15:00 23:00 07:00 Intake Total 730 ml 1040 ml 845 ml Output Total 250 ml 900 ml Balance 730 ml 790 ml -55 ml medications Current Medications Medications Dose Ordered Sig/Andrew Route Start Time Stop Time Status Last Admin Dose Admin Ceftriaxone Sodium 50 ml @ 100 mls/hr DAILY@09 IV 05/13/25 09:00 05/19/25 09:21 100 MLS/HR Albuterol 2.5 mg Q6HPRN PRN NEB 05/13/25 00:45 Cancel Acetaminophen/ Hydrocodone Bitart 1 tab Q4HP PRN PO 05/13/25 00:45 05/19/25 06:05 1 TAB Ondansetron HCl 4 mg Q4HP PRN IV 05/13/25 00:45 Acetaminophen 650 mg Q6HP PRN PO 05/13/25 00:45 Octreotide Acetate 100 mcg TID SUBCUT 05/14/25 14:00 05/19/25 14:56 100 MCG Temazepam 15 mg HSPRN PRN PO 05/14/25 10:30 05/18/25 21:52 15 MG Pantoprazole Sodium 40 mg DAILY IV 05/15/25 10:00 05/19/25 09:21 40 MG Metronidazole 100 ml @ 100 mls/hr Q8HR IV 05/15/25 14:00 05/19/25 14:57 100 MLS/HR Examination Gen: NAD, appears stated age Lungs: CTA, bilateral air entry Heart: RRR, normal S1 and S2 Ext: No edema Neuro: Alert and oriented x 4 laboratory and microbiology Laboratory Tests 05/19/25 05:30 05/17/25 05:21 Test 05/19/25 05:30 Range/Units Serum Glucose 121 H 74-106 mg/dL Microbiology Date/Time Source Procedure Growth Status 05/13/25 09:40 Ascities Fluid Gram Stain - Final Complete 05/13/25 09:40 Ascities Fluid Body Fluid Culture - Final Complete 05/12/25 23:25 Blood Blood Culture - Final NO GROWTH AFTER 5 DAYS OF INCUBATION. Complete Labs and/or images reviewed: Labs reviewed by me Problem List/Assessment/Plan Problem List/Assessment/Plan IMP 1.Acute kidney injury hemodynamically mediated cannot exclude ATN/HRS no previous ckd hx GFR > 70 in 2023 2. New onset Ascites s/p large volume paracentesis given hx nonhodgkin lymphoma there is high concern for malignant ascites REC - BMP in am - eGFR 20, downtrending serum creat 2.75 - Continue avoidance of NSAIDs. Avoidance of contrast studies if able - Avoidance of ACEI/ARB during time course of GEORGE - No emergent indication for dialysis at this time - Will continue to reevaluate daily - Patient will require outpatient follow-up d/t severe GEORGE once discharged Plan discussed with: Patient Dietary Evaluation Review Comments: Nutrition Recommendation: 1) Consider 2 gm Na diet 2) Monitor PO intake, lab values, weight trend, and I/O Expected Outcomes/Goals: Lab values to improve Fu 3-5 days CRISTI BOOTH May 19, 2025 15:26
--- NOTE | 2025-05-19 16:03 | DVHPN2 ---
Subjective same Reviewed: Care Plan, H&P, Labs, Medications, Previous Orders, Radiology Changes from previous H/P or p: No Changes General: Per HPI Objective Vitals Vital Signs Date Time Temp Pulse Resp B/P (MAP) Pulse Ox O2 Delivery O2 Flow Rate FiO2 05/19/25 12:39 97.6 91 18 129/84 (99) 97 97.6 05/19/25 08:00 Room Air* 0 21 Intake/Output Intake and Output 05/19/25 07:00 Intake Total 2615 ml Output Total 1150 ml Balance 1465 ml Intake Oral 2365 ml IV Total 250 ml Output Urine Total 1150 ml General Appearance: Alert, Oriented X3, Cooperative, No acute distress HEENT: Atraumatic Lungs: Clear to auscultation, Normal air movement Cardiovascular: Regular rate Abdomen: Normal bowel sounds, Soft, No tenderness Medications Current Medications Medications Dose Ordered Sig/Andrew Route Start Time Stop Time Status Last Admin Dose Admin Ceftriaxone Sodium 50 ml @ 100 mls/hr DAILY@09 IV 05/13/25 09:00 05/19/25 09:21 100 MLS/HR Albuterol 2.5 mg Q6HPRN PRN NEB 05/13/25 00:45 Cancel Acetaminophen/ Hydrocodone Bitart 1 tab Q4HP PRN PO 05/13/25 00:45 05/19/25 06:05 1 TAB Ondansetron HCl 4 mg Q4HP PRN IV 05/13/25 00:45 Acetaminophen 650 mg Q6HP PRN PO 05/13/25 00:45 Octreotide Acetate 100 mcg TID SUBCUT 05/14/25 14:00 05/19/25 14:56 100 MCG Temazepam 15 mg HSPRN PRN PO 05/14/25 10:30 05/18/25 21:52 15 MG Pantoprazole Sodium 40 mg DAILY IV 05/15/25 10:00 05/19/25 09:21 40 MG Metronidazole 100 ml @ 100 mls/hr Q8HR IV 05/15/25 14:00 05/19/25 14:57 100 MLS/HR Laboratory Results Laboratory Tests 05/17/25 05:21 05/19/25 05:30 Chemistry Test 05/19/25 05:30 Calcium Level 8.6 mg/dL (8.7-10.4) L Urinalysis Test 05/12/25 22:00 05/14/25 00:00 05/14/25 10:38 Urine Color Yellow (Yellow) Urine Clarity Clear (Clear) Urine pH 5.0 (5.0-9.0) Urine Specific [place] 1.015 (1.001-1.035) Urine Protein 1+ (Negative) H Urine Ketones Trace (Negative) H Urine Blood Trace /uL (Negative) H Urine Nitrite Negative (Negative) Urine Bilirubin Negative (Negative) Urine Urobilinogen Normal mg/dL (Negative) Urine Leukocyte Esterase Negative /uL (Negative) Urine Glucose Normal mg/dL (Normal) Urine Protein/Creatinine Ratio 0.73 Urine Total Protein 65.9 mg/dL (1-14) H Urine Creatinine 91.41 mg/dL (30.0-125.0) Urine Sodium 15 mmol/L (40-220) L Microbiology Microbiology Date/Time Source Procedure Growth Status 05/13/25 09:40 Ascities Fluid Gram Stain - Final Complete 05/13/25 09:40 Ascities Fluid Body Fluid Culture - Final Complete 05/12/25 23:25 Blood Blood Culture - Final NO GROWTH AFTER 5 DAYS OF INCUBATION. Complete Assessment/Plan Assessment/Plan Abdominal distention with ascites Acute kidney injury Peritoneal carcinomatosis History of Hodgkin lymphoma with possible recurrence Cryptogenic liver cirrhosis Colitis stenosis Pancreatic cyst/possible IPMN Obstructive sleep apnea Status post AICD Status post C-spine surgery Heart failure with reduced ejection fraction Cholelithiasis Leukocytosis Anemia Chronic kidney disease Plan: EGD on Tuesday. Continue current plan of care Plan discussed with: Patient Date of Service: May 19, 2025 Billing Provider: LALY DIAZ MD Common Visit Codes: [id number] INP/OBS CARE(MOD) LALY DIAZ MD May 19, 2025 16:03
[2025-05-20] VITALS (8 sets, daily range): BP systolic 118–134; BP diastolic 67–85; PULSE 77–99; RESP 16–18; TEMP 97.5–98.5; O2SAT 93–98
[2025-05-20 06:48] LABS: Alanine Aminotransferase 20 U/L (7-40); Alkaline Phosphatase 98 U/L (46-116); Anion Gap 13 (5-15); BUN/Creatinine Ratio 14.2 (10.0-20.0); Carbon Dioxide 21 mmol/L (20-31); Chloride 100 mmol/L (98-107); Potassium 4.3 mmol/L (3.5-5.1); Total Protein 6.2 g/dL (5.7-8.2)
[2025-05-20 06:49] LABS: Albumin 3.3 g/dL (3.2-4.8); Bilirubin, Total 0.4 mg/dL (0.2-1.0); Blood Urea Nitrogen 36 mg/dL (9-23); Calcium 8.6 mg/dL (8.7-10.4); Glucose 154 mg/dL (74-106); Sodium 134 mmol/L (136-145)
[2025-05-20 06:53] LABS: Hematocrit 39.0 % (36.0-46.0); Hemoglobin 13.3 g/dL (12.2-16.2); Mean Corpuscular Hemoglobin 30.6 pg (28.0-32.0); Mean Corpuscular Volume 90.0 fL (80.0-100.0); Nucleated Red Blood Cells % 0.0 %
[2025-05-20 07:07] LABS: Lipase 57 U/L (12-53)
--- NOTE | 2025-05-20 11:05 | DVHPN2 ---
Progress Note Date Seen: May 20, 2025 Medical Necessity Reason Pt with a Central, PICC or Fol: No Subjective Patient reports: No new complaints Review of Systems: HEENT:Normal, CVS:Normal, RESPIRATORY:Normal, GI:Normal, :Normal, MSK:Normal, NEURO:Normal Objective vital signs Vital Sign Date Time Temp Pulse Resp B/P (MAP) Pulse Ox O2 Delivery O2 Flow Rate FiO2 05/20/25 09:00 97.5 85 18 126/69 (88) 97 97.5 05/20/25 08:27 Nasal Cannula* 2 28 Total Intake and Output 05/19/25 05/19/25 05/20/25 15:00 23:00 07:00 Intake Total 290 ml 200 ml 900 ml Balance 290 ml 200 ml 900 ml medications Current Medications Medications Dose Ordered Sig/Andrew Route Start Time Stop Time Status Last Admin Dose Admin Ceftriaxone Sodium 50 ml @ 100 mls/hr DAILY@09 IV 05/13/25 09:00 05/20/25 09:17 100 MLS/HR Albuterol 2.5 mg Q6HPRN PRN NEB 05/13/25 00:45 Cancel Acetaminophen/ Hydrocodone Bitart 1 tab Q4HP PRN PO 05/13/25 00:45 05/20/25 02:55 1 TAB Ondansetron HCl 4 mg Q4HP PRN IV 05/13/25 00:45 Acetaminophen 650 mg Q6HP PRN PO 05/13/25 00:45 Octreotide Acetate 100 mcg TID SUBCUT 05/14/25 14:00 05/20/25 05:33 100 MCG Temazepam 15 mg HSPRN PRN PO 05/14/25 10:30 05/19/25 21:56 15 MG Pantoprazole Sodium 40 mg DAILY IV 05/15/25 10:00 05/20/25 09:16 40 MG Metronidazole 100 ml @ 100 mls/hr Q8HR IV 05/15/25 14:00 05/20/25 05:32 100 MLS/HR Examination: GENERAL:Normal, HEENT:Normal, NECK:Normal, LUNGS:Normal, CVS:Normal, ABDOMEN:Normal, ABDOMEN:Abnormal (ascites), MSK:Normal, SKIN:Normal, NEURO:Normal, :Normal laboratory and microbiology Laboratory Tests 05/20/25 05:44 Test 9/29/25 05:44 Range/Units Serum Glucose 154 H 74-106 mg/dL Microbiology Date/Time Source Procedure Growth Status 05/13/25 09:40 Ascities Fluid Gram Stain - Final Complete 05/13/25 09:40 Ascities Fluid Body Fluid Culture - Final Complete 05/12/25 23:25 Blood Blood Culture - Final NO GROWTH AFTER 5 DAYS OF INCUBATION. Complete Problem List/Assessment/Plan Problem List/Assessment/Plan #1 ascites: s/p paracentesis #2 liver cirrhosis: check hep panel #3 non hodgkins lymphoma #4 h/o pacer #5 acute renal failure ?vasomotor nephropathy #6 wt loss #7 sepsis with ?sbp: iv rocephin #8 copd #9 omental nodularity- malignant cells in ascitic fluid: mrcp pending, egd today #10 diarrhea: check c diff, flagyl advance care planning- full code- time spent 19 mins Plan discussed with: Patient Dietary Evaluation Review Comments: Nutrition Recommendation: 1) Consider 2 gm Na diet 2) Monitor PO intake, lab values, weight trend, and I/O Expected Outcomes/Goals: Lab values to improve Fu 3-5 days Date of Service: May 20, 2025 Billing Provider: HERB SERRATO MD Common Visit Codes: [id number] INP/OBS CARE(HIGH) HERB SERRATO MD May 20, 2025 11:05
--- NOTE | 2025-05-20 12:25 | DVH ---
US ABDOMEN LIMITED HISTORY: FLUID CHECK COMPARISON: US ABDOMEN LIMITED on DOS: 05/15/25, US PARACENTESIS on DOS: 05/13/25, CT CT AB PEL WO CON- NO ORAL OR IV on DOS: 05/12/25 TECHNIQUE: Transverse and longitudinal sonographic images were obtained of all four quadrants of the abdomen and pelvis. FINDINGS: IMPRESSION: There is a small volume ascites.
--- NOTE | 2025-05-20 13:28 | DVHPN2 ---
Progress Note Date Seen: May 20, 2025 Resident Creating Document: PATY BURNS RESIDENT Medical Necessity Reason Pt with a Central, PICC or Fol: No Subjective Review of Systems Patient seen and examined at bedside Denies any nausea or vomiting Denies any abdominal pain Does note some abdominal distention increased from prior Objective vital signs Vital Sign Date Time Temp Pulse Resp B/P (MAP) Pulse Ox O2 Delivery O2 Flow Rate FiO2 05/20/25 12:55 97.8 97 16 122/67 (85) 97 97.8 05/20/25 08:27 Nasal Cannula* 2 28 Total Intake and Output 05/19/25 05/19/25 05/20/25 15:00 23:00 07:00 Intake Total 290 ml 200 ml 900 ml Balance 290 ml 200 ml 900 ml medications Current Medications Medications Dose Ordered Sig/Andrew Route Start Time Stop Time Status Last Admin Dose Admin Ceftriaxone Sodium 50 ml @ 100 mls/hr DAILY@09 IV 05/13/25 09:00 05/20/25 09:17 100 MLS/HR Albuterol 2.5 mg Q6HPRN PRN NEB 05/13/25 00:45 Cancel Acetaminophen/ Hydrocodone Bitart 1 tab Q4HP PRN PO 05/13/25 00:45 05/20/25 02:55 1 TAB Ondansetron HCl 4 mg Q4HP PRN IV 05/13/25 00:45 Acetaminophen 650 mg Q6HP PRN PO 05/13/25 00:45 Octreotide Acetate 100 mcg TID SUBCUT 05/14/25 14:00 05/20/25 05:33 100 MCG Temazepam 15 mg HSPRN PRN PO 05/14/25 10:30 05/19/25 21:56 15 MG Pantoprazole Sodium 40 mg DAILY IV 05/15/25 10:00 05/20/25 09:16 40 MG Metronidazole 100 ml @ 100 mls/hr Q8HR IV 05/15/25 14:00 05/20/25 05:32 100 MLS/HR Examination General Appearance: Cooperative. Well developed. In mild distress Pulmonary/Respiratory: Equal bilateral air entry Cardiovascular/Chest: Regular rate and rhythm. No murmurs. No JVD. Abdominal Exam: Normal bowel sounds. Distended but Soft. normal abdomen, no visible veins, Nontender. Ankle Exam: Negative ankle edema Neuro/Mental Status: A&O x4. Coherent. Skin Exam: Normal inspection. Normal color. Warm. Dry laboratory and microbiology Laboratory Tests 05/20/25 05:44 Test 05/20/25 05:44 Range/Units Serum Glucose 154 H 74-106 mg/dL Microbiology Date/Time Source Procedure Growth Status 05/13/25 09:40 Ascities Fluid Gram Stain - Final Complete 05/13/25 09:40 Ascities Fluid Body Fluid Culture - Final Complete 05/12/25 23:25 Blood Blood Culture - Final NO GROWTH AFTER 5 DAYS OF INCUBATION. Complete Labs and/or images reviewed: Labs reviewed by me, Image(s) reviewed by me Problem List/Assessment/Plan Problem List/Assessment/Plan Acute intractable abdominal pain, now resolved Abdominal ascites, malignant versus portal hypertension related Omental nodularity on CT abdomen pelvis Peritonitis Acute versus chronic diarrhea History of fatty liver, liver cirrhosis? GEORGE, likely hemodynamically mediated/VMN Chronic respiratory failure History of non-Hodgkin's lymphoma Cholelithiasis Lower GI bleed? Hematochezia versus melena Heart failure with reduced ejection fraction Plan: Scheduled for endoscopy on 05/21/2025 Ordered MRCP Request records from [place]; patient completed colonoscopy and endoscopy 5 years ago at [place]. Right upper quadrant ultrasound: Nodular liver surface suggestive of cirrhosis. Small amount of ascites throughout the abdomen. Contracted gallbladder. No definite stones identified. No sonographic Fuchs's sign. Enlarged common bile duct at 14 mm. Pending ascitic fluid biopsy results Ordered stool occult blood, stool WBCs, stool bacterial culture elevated CA 19 9, CA 125 and CEA Continue antibiotics IV Protonix 40 mg daily Consider referral back to [facility] for HLOC Thank you so much for the opportunity to consult on your patient. GI team will follow the patient. In case of any questions or concerns please feel free to reach out. Plan discussed with Dr. 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
--- NOTE | 2025-05-20 14:13 | DVHPN2 ---
Progress Note - Dictate Date Seen: May 20, 2025 Medical Necessity Reason Pt with a Central, PICC or Fol: No Subjective PT WITH CAROID STENOSIS S/P CERVICAL SPINE SURGERY CRYPTOGENIC CIRRHOSIS KYLIE HTN VOLUME DEPLETION PROGRESSIVE ASCITES R/O PERITONITIS HFrEF S/P BV AICD vital signs Vital Sign Date Time Temp Pulse Resp B/P (MAP) Pulse Ox O2 Delivery O2 Flow Rate FiO2 05/20/25 12:55 97.8 97 16 122/67 (85) 97 97.8 05/20/25 08:27 Nasal Cannula* 2 28 Total Intake and Output 05/19/25 05/19/25 05/20/25 15:00 23:00 07:00 Intake Total 290 ml 200 ml 900 ml Balance 290 ml 200 ml 900 ml medications Current Medications Medications Dose Ordered Sig/Andrew Route Start Time Stop Time Status Last Admin Dose Admin Ceftriaxone Sodium 50 ml @ 100 mls/hr DAILY@09 IV 05/13/25 09:00 05/20/25 09:17 100 MLS/HR Albuterol 2.5 mg Q6HPRN PRN NEB 05/13/25 00:45 Cancel Acetaminophen/ Hydrocodone Bitart 1 tab Q4HP PRN PO 05/13/25 00:45 05/20/25 02:55 1 TAB Ondansetron HCl 4 mg Q4HP PRN IV 05/13/25 00:45 Acetaminophen 650 mg Q6HP PRN PO 05/13/25 00:45 Octreotide Acetate 100 mcg TID SUBCUT 05/14/25 14:00 05/20/25 05:33 100 MCG Temazepam 15 mg HSPRN PRN PO 05/14/25 10:30 05/19/25 21:56 15 MG Pantoprazole Sodium 40 mg DAILY IV 05/15/25 10:00 05/20/25 09:16 40 MG Metronidazole 100 ml @ 100 mls/hr Q8HR IV 05/15/25 14:00 05/20/25 05:32 100 MLS/HR objective HEENT: Normal ENT Inspection, PERRL/EOMI, Pharynx Normal, TMs Normal, Other (A TINY BLOOD VESSEL ON THE ROOF OF THE MOUTH IS BLEEDING, NO SWELLING AND ACTIVELY BLEEDING. NO BLOOD CLOTS, NO DENTAL AND GUM INFECTION. ) Neck: Full Range of Motion, Non-Tender, Normal, Normal Inspection Respiratory: Chest Non-Tender, Lungs Clear, No Accessory Muscle Use, No Respiratory Distress, Normal Breath Sounds Cardiovascular: No Edema, No JVD, No Murmur, No Gallop, Normal Peripheral Pulses, Regular Rate/Rhythm Breast Exam: Deferred Gastrointestinal: No Organomegaly, + ascite< shifting dullness Genitalia: Deferred Pelvic: Deferred Rectal: Deferred Extremities: No calf tenderness, Normal capillary refill, Normal inspection, Normal range of motion, Non-tender, No pedal edema Musculoskeletal : Apperance: Normal Neurologic: Alert, 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 as Tested, No Motor Deficits, Normal Affect, Normal Mood, No Sensory Deficits Cerebellar Function: Normal Reflexes: Normal Skin: Dry, Normal Color, Warm Peripheral Pulses: 2+ carotid (R), 2+ carotid (L) Lymphatic: No Adenopathy laboratory and microbiology Laboratory Tests 05/20/25 05:44 Test 05/20/25 05:44 Range/Units Serum Glucose 154 H 74-106 mg/dL Problem List PERITONITIS ASICITES CIRRHOSIS HFrEF S/P BIV AICD ACUTE RENAL FAILURE Assessment/Plan ABX S/P PARACENTESIS SLOW VOLUME REPLETION WITH ALBUMIN fFLUID WBC TRENDING DOWN AFTER VANCO DOSE GIVEN possible gi malignancy GI W/U WILL DISCUSS WITH PT SHE WANS REFERAL TO [facility] SINCE NON HD LYMPHOMA WAS TREATED AT [facility] Dietary Evaluation Review Comments: Nutrition Recommendation: 1) Consider 2 gm Na diet 2) Monitor PO intake, lab values, weight trend, and I/O Expected Outcomes/Goals: Lab values to improve Fu 3-5 days Plan discussed with: Patient RUDY CHAKRABORTY MD May 20, 2025 14:13
--- NOTE | 2025-05-20 17:19 | DVHPN2 ---
Progress Note Date Seen: May 20, 2025 Medical Necessity Reason Pt with a Central, PICC or Fol: No Subjective Patient reports: Other Review of Systems: GI:Abnormal (abd distension) Objective vital signs Vital Sign Date Time Temp Pulse Resp B/P (MAP) Pulse Ox O2 Delivery O2 Flow Rate FiO2 05/20/25 12:55 97.8 97 16 122/67 (85) 97 97.8 05/20/25 08:27 Nasal Cannula* 2 28 Total Intake and Output 05/19/25 05/19/25 05/20/25 15:00 23:00 07:00 Intake Total 290 ml 200 ml 900 ml Balance 290 ml 200 ml 900 ml medications Current Medications Medications Dose Ordered Sig/Andrew Route Start Time Stop Time Status Last Admin Dose Admin Ceftriaxone Sodium 50 ml @ 100 mls/hr DAILY@09 IV 05/13/25 09:00 05/20/25 09:17 100 MLS/HR Albuterol 2.5 mg Q6HPRN PRN NEB 05/13/25 00:45 Cancel Acetaminophen/ Hydrocodone Bitart 1 tab Q4HP PRN PO 05/13/25 00:45 05/20/25 02:55 1 TAB Ondansetron HCl 4 mg Q4HP PRN IV 05/13/25 00:45 Acetaminophen 650 mg Q6HP PRN PO 05/13/25 00:45 Octreotide Acetate 100 mcg TID SUBCUT 05/14/25 14:00 05/20/25 14:21 100 MCG Temazepam 15 mg HSPRN PRN PO 05/14/25 10:30 05/19/25 21:56 15 MG Pantoprazole Sodium 40 mg DAILY IV 05/15/25 10:00 05/20/25 09:16 40 MG Metronidazole 100 ml @ 100 mls/hr Q8HR IV 05/15/25 14:00 05/20/25 14:21 100 MLS/HR Examination: GENERAL:Normal, HEENT:Normal, NECK:Normal, LUNGS:Normal, CVS:Normal, ABDOMEN:Abnormal, MSK:Normal, SKIN:Normal, NEURO:Normal, :Normal laboratory and microbiology Laboratory Tests 05/20/25 05:44 Test 05/20/25 05:44 Range/Units Serum Glucose 154 H 74-106 mg/dL Microbiology Date/Time Source Procedure Growth Status 05/13/25 09:40 Ascities Fluid Gram Stain - Final Complete 05/13/25 09:40 Ascities Fluid Body Fluid Culture - Final Complete 05/12/25 23:25 Blood Blood Culture - Final NO GROWTH AFTER 5 DAYS OF INCUBATION. Complete Problem List/Assessment/Plan Problem List/Assessment/Plan 1.Acute kidney injury hemodynamically mediated likely hepatorenal syndrome no previous ckd hx GFR > 70 in 2023 2. Ascites s/p large volume paracentesis/decompensated cirrhosis given hx nonhodgkin lymphoma there is high concern for malignant ascites recs stable renal function will f/u closely Plan discussed with: Patient Dietary Evaluation Review Comments: Nutrition Recommendation: 1) Consider 2 gm Na diet 2) Monitor PO intake, lab values, weight trend, and I/O Expected Outcomes/Goals: Lab values to improve Fu 3-5 days FLYNN MUNGUIA MD May 20, 2025 17:19
[2025-05-21] VITALS (8 sets, daily range): BP systolic 124–133; BP diastolic 78–81; PULSE 73–99; RESP 14–21; TEMP 97.2–98.7; O2SAT 95–98
[2025-05-21 06:30] LABS: Hematocrit 38.2 % (36.0-46.0); Hemoglobin 12.8 g/dL (12.2-16.2); Mean Corpuscular Hemoglobin 30.2 pg (28.0-32.0); Mean Corpuscular Volume 90.3 fL (80.0-100.0)
[2025-05-21 06:33] LABS: Chloride 100 mmol/L (98-107); Potassium 4.7 mmol/L (3.5-5.1)
[2025-05-21 06:34] LABS: Anion Gap 14 (5-15); Carbon Dioxide 21 mmol/L (20-31)
[2025-05-21 06:35] LABS: Calcium 8.7 mg/dL (8.7-10.4)
[2025-05-21 06:38] LABS: Sodium 135 mmol/L (136-145)
[2025-05-21 06:39] LABS: BUN/Creatinine Ratio 17.6 (10.0-20.0)
[2025-05-21 06:40] LABS: Blood Urea Nitrogen 45 mg/dL (9-23); Glucose 143 mg/dL (74-106)
[2025-05-21 07:19] LABS: Total Cells Counted 100.0 (100)
[2025-05-21] MEDS ORDERED: ALBUMIN 25% 100 ML IV SCH (10:00)
--- NOTE | 2025-05-21 10:05 | DVHPN2 ---
Progress Note - Dictate Date Seen: May 18, 2025 Medical Necessity Reason Pt with a Central, PICC or Fol: No Subjective PT WITH CAROID STENOSIS S/P CERVICAL SPINE SURGERY CRYPTOGENIC CIRRHOSIS KYLIE HTN VOLUME DEPLETION PROGRESSIVE ASCITES R/O PERITONITIS HFrEF S/P BV AICD vital signs Vital Sign Date Time Temp Pulse Resp B/P (MAP) Pulse Ox O2 Delivery O2 Flow Rate FiO2 05/21/25 08:55 98.3 73 16 127/79 (95) 95 98.3 05/21/25 08:00 Nasal Cannula* 2 28 Total Intake and Output 05/20/25 05/20/25 05/21/25 15:00 23:00 07:00 Intake Total 290 ml 900 ml Output Total 700 ml Balance 290 ml 200 ml medications Current Medications Medications Dose Ordered Sig/Andrew Route Start Time Stop Time Status Last Admin Dose Admin Ceftriaxone Sodium 50 ml @ 100 mls/hr DAILY@09 IV 05/13/25 09:00 05/21/25 09:25 100 MLS/HR Albuterol 2.5 mg Q6HPRN PRN NEB 05/13/25 00:45 Cancel Acetaminophen/ Hydrocodone Bitart 1 tab Q4HP PRN PO 05/13/25 00:45 05/21/25 00:38 1 TAB Ondansetron HCl 4 mg Q4HP PRN IV 05/13/25 00:45 Acetaminophen 650 mg Q6HP PRN PO 05/13/25 00:45 Octreotide Acetate 100 mcg TID SUBCUT 05/14/25 14:00 05/21/25 05:15 100 MCG Temazepam 15 mg HSPRN PRN PO 05/14/25 10:30 05/20/25 21:21 15 MG Pantoprazole Sodium 40 mg DAILY IV 05/15/25 10:00 05/21/25 09:25 40 MG Metronidazole 100 ml @ 100 mls/hr Q8HR IV 05/15/25 14:00 05/21/25 05:15 100 MLS/HR objective HEENT: Normal ENT Inspection, PERRL/EOMI, Pharynx Normal, TMs Normal, Other (A TINY BLOOD VESSEL ON THE ROOF OF THE MOUTH IS BLEEDING, NO SWELLING AND ACTIVELY BLEEDING. NO BLOOD CLOTS, NO DENTAL AND GUM INFECTION. ) Neck: Full Range of Motion, Non-Tender, Normal, Normal Inspection Respiratory: Chest Non-Tender, Lungs Clear, No Accessory Muscle Use, No Respiratory Distress, Normal Breath Sounds Cardiovascular: No Edema, No JVD, No Murmur, No Gallop, Normal Peripheral Pulses, Regular Rate/Rhythm Breast Exam: Deferred Gastrointestinal: No Organomegaly, + ascite< shifting dullness Genitalia: Deferred Pelvic: Deferred Rectal: Deferred Extremities: No calf tenderness, Normal capillary refill, Normal inspection, Normal range of motion, Non-tender, No pedal edema Musculoskeletal : Apperance: Normal Neurologic: Alert, rn supplemental II-XII nml as Tested, No Motor Deficits, Normal Affect, Normal Mood, No Sensory Deficits Cerebellar Function: Normal Reflexes: Normal Skin: Dry, Normal Color, Warm Peripheral Pulses: 2+ carotid (R), 2+ carotid (L) Lymphatic: No Adenopathy laboratory and microbiology Laboratory Tests 05/21/25 05:42 Test 05/21/25 05:42 Range/Units Serum Glucose 143 H 74-106 mg/dL Problem List PERITONITIS ASICITES CIRRHOSIS HFrEF S/P BIV AICD ACUTE RENAL FAILURE Assessment/Plan ABX S/P PARACENTESIS SLOW VOLUME REPLETION WITH ALBUMIN fFLUID WBC TRENDING DOWN AFTER VANCO DOSE GIVEN possible gi malignancy GI W/U WILL DISCUSS WITH PT SHE WANTS RE[facility]ERRAL TO [facility] SINCE NON HD LYMPHOMA WAS TREATED AT [facility] Dietary Evaluation Review Comments: Nutrition Recommendation: 1) Consider 2 gm Na diet 2) Monitor PO intake, lab values, weight trend, and I/O Expected Outcomes/Goals: Lab values to improve Fu 3-5 days Plan discussed with: Patient RUDY CHAKRABORTY MD May 21, 2025 10:05
--- NOTE | 2025-05-21 10:08 | DVHPN2 ---
Progress Note - Dictate Date Seen: May 21, 2025 Medical Necessity Reason Pt with a Central, PICC or Fol: No Subjective PT WITH CAROID STENOSIS S/P CERVICAL SPINE SURGERY CRYPTOGENIC CIRRHOSIS KYLIE HTN VOLUME DEPLETION PROGRESSIVE ASCITES R/O PERITONITIS HFrEF S/P BV AICD vital signs Vital Sign Date Time Temp Pulse Resp B/P (MAP) Pulse Ox O2 Delivery O2 Flow Rate FiO2 05/21/25 08:55 98.3 73 16 127/79 (95) 95 98.3 05/21/25 08:00 Nasal Cannula* 2 28 Total Intake and Output 05/20/25 05/20/25 05/21/25 15:00 23:00 07:00 Intake Total 290 ml 900 ml Output Total 700 ml Balance 290 ml 200 ml medications Current Medications Medications Dose Ordered Sig/Andrew Route Start Time Stop Time Status Last Admin Dose Admin Ceftriaxone Sodium 50 ml @ 100 mls/hr DAILY@09 IV 05/13/25 09:00 05/21/25 09:25 100 MLS/HR Albuterol 2.5 mg Q6HPRN PRN NEB 05/13/25 00:45 Cancel Acetaminophen/ Hydrocodone Bitart 1 tab Q4HP PRN PO 05/13/25 00:45 05/21/25 00:38 1 TAB Ondansetron HCl 4 mg Q4HP PRN IV 05/13/25 00:45 Acetaminophen 650 mg Q6HP PRN PO 05/13/25 00:45 Octreotide Acetate 100 mcg TID SUBCUT 05/14/25 14:00 05/21/25 05:15 100 MCG Temazepam 15 mg HSPRN PRN PO 05/14/25 10:30 05/20/25 21:21 15 MG Pantoprazole Sodium 40 mg DAILY IV 05/15/25 10:00 05/21/25 09:25 40 MG Metronidazole 100 ml @ 100 mls/hr Q8HR IV 05/15/25 14:00 05/21/25 05:15 100 MLS/HR objective HEENT: Normal ENT Inspection, PERRL/EOMI, Pharynx Normal, TMs Normal, Other (A TINY BLOOD VESSEL ON THE ROOF OF THE MOUTH IS BLEEDING, NO SWELLING AND ACTIVELY BLEEDING. NO BLOOD CLOTS, NO DENTAL AND GUM INFECTION. ) Neck: Full Range of Motion, Non-Tender, Normal, Normal Inspection Respiratory: Chest Non-Tender, Lungs Clear, No Accessory Muscle Use, No Respiratory Distress, Normal Breath Sounds Cardiovascular: No Edema, No JVD, No Murmur, No Gallop, Normal Peripheral Pulses, Regular Rate/Rhythm Breast Exam: Deferred Gastrointestinal: No Organomegaly, + ascite< shifting dullness Genitalia: Deferred Pelvic: Deferred Rectal: Deferred Extremities: No calf tenderness, Normal capillary refill, Normal inspection, Normal range of motion, Non-tender, No pedal edema Musculoskeletal : Apperance: Normal Neurologic: Alert, early childhood lead 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 II-XII nml as Tested, No Motor Deficits, Normal Affect, Normal Mood, No Sensory Deficits Cerebellar Function: Normal Reflexes: Normal Skin: Dry, Normal Color, Warm Peripheral Pulses: 2+ carotid (R), 2+ carotid (L) Lymphatic: No Adenopathy laboratory and microbiology Laboratory Tests 05/21/25 05:42 Test 05/21/25 05:42 Range/Units Serum Glucose 143 H 74-106 mg/dL Problem List PERITONITIS ASICITES CIRRHOSIS HFrEF S/P BIV AICD ACUTE RENAL FAILURE Assessment/Plan ABX S/P PARACENTESIS SLOW VOLUME REPLETION WITH ALBUMIN fFLUID WBC TRENDING DOWN AFTER VANCO DOSE GIVEN possible gi malignancy GI W/U WILL DISCUSS WITH PT SHE WANTS REFERRAL TO [facility] SINCE NON HD LYMPHOMA WAS TREATED AT [facility] DC [facility] TO [facility] BECAUSE OF [employer] D [employer] COVERAGE Dietary Evaluation Review Comments: Nutrition Recommendation: 1) Consider 2 gm Na diet 2) Monitor PO intake, lab values, weight trend, and I/O Expected Outcomes/Goals: Lab values to improve Fu 3-5 days Plan discussed with: Patient RUDY CHAKRABORTY MD May 21, 2025 10:08
--- NOTE | 2025-05-21 11:18 | DVHPN2 ---
Progress Note Date Seen: May 21, 2025 Medical Necessity Reason Pt with a Central, PICC or Fol: No Subjective Patient reports: No new complaints Review of Systems: HEENT:Normal, CVS:Normal, RESPIRATORY:Normal, GI:Normal, :Normal, MSK:Normal, NEURO:Normal Objective vital signs Vital Sign Date Time Temp Pulse Resp B/P (MAP) Pulse Ox O2 Delivery O2 Flow Rate FiO2 05/21/25 08:55 98.3 73 16 127/79 (95) 95 98.3 05/21/25 08:00 Nasal Cannula* 2 28 Total Intake and Output 05/20/25 05/20/25 05/21/25 15:00 23:00 07:00 Intake Total 290 ml 900 ml Output Total 700 ml Balance 290 ml 200 ml medications Current Medications Medications Dose Ordered Sig/Andrew Route Start Time Stop Time Status Last Admin Dose Admin Albuterol 2.5 mg Q6HPRN PRN NEB 05/13/25 00:45 Cancel Acetaminophen/ Hydrocodone Bitart 1 tab Q4HP PRN PO 05/13/25 00:45 05/21/25 00:38 1 TAB Ondansetron HCl 4 mg Q4HP PRN IV 05/13/25 00:45 Acetaminophen 650 mg Q6HP PRN PO 05/13/25 00:45 Octreotide Acetate 100 mcg TID SUBCUT 05/14/25 14:00 05/21/25 05:15 100 MCG Pantoprazole Sodium 40 mg DAILY IV 05/15/25 10:00 05/21/25 09:25 40 MG Metronidazole 100 ml @ 100 mls/hr Q8HR IV 05/15/25 14:00 05/21/25 05:15 100 MLS/HR Albumin Human 100 ml @ 100 mls/hr Q8H IV 05/21/25 10:00 05/22/25 02:59 Piperacillin Sod/ Tazobactam Sod 100 ml @ 25 mls/hr Q12HR IV 05/21/25 10:00 UNV Examination: GENERAL:Normal, HEENT:Normal, NECK:Normal, LUNGS:Normal, CVS:Normal, ABDOMEN:Normal, ABDOMEN:Abnormal (ascites), MSK:Normal, SKIN:Normal, NEURO:Normal, :Normal laboratory and microbiology Laboratory Tests 05/21/25 05:42 Test 05/21/25 05:42 Range/Units Serum Glucose 143 H 74-106 mg/dL Microbiology Date/Time Source Procedure Growth Status 05/13/25 09:40 Ascities Fluid Gram Stain - Final Complete 05/13/25 09:40 Ascities Fluid Body Fluid Culture - Final Complete 05/12/25 23:25 Blood Blood Culture - Final NO GROWTH AFTER 5 DAYS OF INCUBATION. Complete Problem List/Assessment/Plan Problem List/Assessment/Plan #1 ascites: s/p repeat paracentesis #2 liver cirrhosis: check hep panel #3 non hodgkins lymphoma #4 h/o pacer #5 acute renal failure ?vasomotor nephropathy #6 wt loss #7 sepsis with ?sbp: iv rocephin #8 copd #9 omental nodularity- malignant cells in ascitic fluid: mrcp pending, egd today #10 diarrhea: check c diff, flagyl advance care planning- full code- time spent 19 mins Plan discussed with: Patient My Orders My Orders Orders - HERB SERRATO MD Procedure Category Date Status Time Basic Metabolic Panel LAB 05/22/25 Verified 06:00 Complete Blood Count LAB 05/22/25 Verified 06:00 Dietary Evaluation Review Comments: Nutrition Recommendation: 1) Consider 2 gm Na diet 2) Monitor PO intake, lab values, weight trend, and I/O Expected Outcomes/Goals: Lab values to improve Fu 3-5 days Date of Service: May 21, 2025 Billing Provider: HERB SERRATO MD Common Visit Codes: [id number] INP/OBS CARE(HIGH) HERB SERRATO MD May 21, 2025 11:18
--- NOTE | 2025-05-21 11:27 | DVH ---
US PARACENTESIS, HISTORY: ASCITES PROCEDURE: Informed consent was obtained. The patient was placed in supine position. A limited locali zation ultrasound of the abdomen was obtained, and the skin site over the largest pocket of fluid was marked and entry site was prepped with chlorhexidine which was allowed to dry and draped in the usua l sterile fashion. Time out was performed. Following administration of 1% lidocaine local anesthetic, a 5 [place] centesis needle catheter was percutaneously inserted into the peritoneal collection until fluid was aspirated. The catheter was advanced into the fluid collection and the needle removed. Abo [place] 3800 cc of fluid was aspirated . The catheter was then removed and a sterile dressing applied. No immediate complication was identified. FINDINGS: Limited ultrasound imaging demonstrates mild to moderate ascites. Aspirated fluid was clear serous. IMPRESSION: US-guided paracentesis with 3.8L removed.
[2025-05-21] MEDS ORDERED: PROPOFOL 10 MG/ML 20 ML IV ONE (12:07)
[2025-05-21] MEDS ORDERED: MIDAZOLAM HCL 2MG/2ML 2ml VIAL (1mg/ml) ONE (12:07)
[2025-05-21] MEDS ORDERED: fentaNYL CITRATE 100 MCG/2 ML VL ONE (12:07)
[2025-05-21] MEDS ORDERED: ONDANSETRON HCL 4 MG/2 ML VIAL ONE (12:07)
[2025-05-21] MEDS ORDERED: LIDOCAINE 1% INJ PF 5ML AMP ONE (12:07)
[2025-05-21] MEDS ORDERED: LIDOCAINE VISCOUS 2% 15ML UD ONE (12:35)
--- NOTE | 2025-05-21 13:03 | DVHOP2 ---
Operative Report DATE OF OPERATION: 05/21/25 PROCEDURE: Upper Endoscopy with biopsy. PREOPERATIVE INDICATION: The patient is a 80 -year-old female undergoing endoscopy for abnormal finding GI tract imaging, malignant ascites rule out malignancy POSTOPERATIVE DIAGNOSES: Plan 1. Patient had mild duodenitis of the postbulbar area of the duodenal with possible extrinsic compression but there was no intrinsic mass seen 2. Mild antral gastritis and a small 1 cm sliding-type hiatal hernia with irregular squamocolumnar junction 3. Otherwise normal examination up to the 3rd part of the duodenal with good bile drainage and no ampullary tumor noted PROCEDURE PERFORMED BY: Lali Webster GI NURSE: Winsome SCOPE: Olympus videoendoscope. ASA CLASS: 3 PREOPERATIVE MEDICATIONS: Mac sedation Dr. Kaplan PROCEDURE IN DETAIL: After obtaining an informed consent, the patient was placed on left lateral decubitus position. The patient was then sedated with the above medications. A bite block was placed between her teeth. The endoscope was then passed through the oropharynx, into the esophagus, and through the stomach and pylorus up to the second and third part of the duodenum. The endoscope was then withdrawn. The 2nd and 3rd part of the duodenal were normal with good bile drainage and no ampullary tumor was noted Patient had mild duodenitis of the postbulbar area of the duodenal with possible extrinsic compression were there was no intrinsic abnormality Duodenal biopsies were obtained. The endoscope was then withdrawn into the stomach where the patient had mild gastritis. Gastric biopsies were obtained. On retroflexion the fundus cardia and angularis were normal. The endoscope was then straightened withdrawn into the distal esophagus Patient had a 1 cm sliding-type hiatal hernia with slightly irregular squamocolumnar junction. GE junction biopsies were obtained The remaining distal and proximal esophagus and oropharynx were unremarkable The patient tolerated the procedure well without difficulty. COMPLICATIONS : None SPECIMENS: Duodenal biopsies Gastric biopsies GE junction biopsies DISPOSITION: Transfer back to the floor Stable PLAN: 1. Await for biopsy result 2. Will place pt on Protonix 40 mg bid 3. Resume GI soft diet advance as tolerated 4. Patient may benefit possibly from referral to higher level of care for possible endoscopic ultrasound and further workup and management of her malignant ascites LALI WEBSTER MD May 21, 2025 13:03
[2025-05-21] MEDS: PIPERACILLIN-TAZOB 3.375GM 100 ML IV SCH (16:20)
[2025-05-21] MEDS: PANTOPRAZOLE 40 MG TAB PO SCH (19:00)
--- NOTE | 2025-05-21 21:44 | DVHPN2 ---
Progress Note Date Seen: May 21, 2025 Medical Necessity Reason Pt with a Central, PICC or Fol: No Subjective Patient reports: No new complaints Review of Systems: Deferred Objective vital signs Vital Sign Date Time Temp Pulse Resp B/P (MAP) Pulse Ox O2 Delivery O2 Flow Rate FiO2 05/21/25 17:00 98.1 78 14 124/81 (95) 96 98.1 05/21/25 12:48 Nasal Cannula 2.0 05/21/25 12:48 98 Total Intake and Output 05/20/25 05/20/25 05/21/25 15:00 23:00 07:00 Intake Total 290 ml 900 ml Output Total 700 ml Balance 290 ml 200 ml medications Current Medications Medications Dose Ordered Sig/Andrew Route Start Time Stop Time Status Last Admin Dose Admin Albuterol 2.5 mg Q6HPRN PRN NEB 05/13/25 00:45 Cancel Acetaminophen/ Hydrocodone Bitart 1 tab Q4HP PRN PO 05/13/25 00:45 05/21/25 16:21 1 TAB Ondansetron HCl 4 mg Q4HP PRN IV 05/13/25 00:45 Acetaminophen 650 mg Q6HP PRN PO 05/13/25 00:45 Octreotide Acetate 100 mcg TID SUBCUT 05/14/25 14:00 05/21/25 14:49 100 MCG Metronidazole 100 ml @ 100 mls/hr Q8HR IV 05/15/25 14:00 05/21/25 14:48 100 MLS/HR Albumin Human 100 ml @ 100 mls/hr Q8H IV 05/21/25 10:00 05/22/25 02:59 Piperacillin Sod/ Tazobactam Sod 100 ml @ 25 mls/hr Q12HR IV 05/21/25 10:00 05/21/25 16:20 25 MLS/HR Pantoprazole Sodium 40 mg BID@0600,1700 PO 05/21/25 17:00 05/21/25 19:00 40 MG Examination: GENERAL:Abnormal, ABDOMEN:Abnormal, NEURO:Normal laboratory and microbiology Laboratory Tests 05/21/25 05:42 Test 05/21/25 05:42 Range/Units Serum Glucose 143 H 74-106 mg/dL Microbiology Date/Time Source Procedure Growth Status 05/13/25 09:40 Ascities Fluid Gram Stain - Final Complete 05/13/25 09:40 Ascities Fluid Body Fluid Culture - Final Complete 05/12/25 23:25 Blood Blood Culture - Final NO GROWTH AFTER 5 DAYS OF INCUBATION. Complete Problem List/Assessment/Plan Problem List/Assessment/Plan Acute kidney injury hemodynamically mediated likely hepatorenal syndrome no previous ckd hx GFR > 70 in 2023 Ascites s/p large volume paracentesis/decompensated cirrhosis given hx nonhodgkin lymphoma there is high concern for malignant ascites Hypornatremia sirs Extensive omental/peritoneal nodularity questionable metastatic disease per CT scan recs stable renal function will f/u closely Remains nonoliguric Plan discussed with: Patient Dietary Evaluation Review Comments: Nutrition Recommendation: 1) Consider 2 gm Na diet 2) Monitor PO intake, lab values, weight trend, and I/O Expected Outcomes/Goals: Lab values to improve Fu 3-5 days FLYNN MUNGUIA MD May 21, 2025 21:44
[2025-05-22] VITALS (8 sets, daily range): BP systolic 106–125; BP diastolic 35–74; PULSE 64–91; RESP 13–19; TEMP 97.2–98.1; O2SAT 92–100
[2025-05-22 05:58] LABS: Hematocrit 38.9 % (36.0-46.0); Hemoglobin 12.9 g/dL (12.2-16.2); Mean Corpuscular Hemoglobin 30.2 pg (28.0-32.0); Mean Corpuscular Volume 91.4 fL (80.0-100.0)
[2025-05-22 06:08] LABS: Anion Gap 14 (5-15); Carbon Dioxide 21 mmol/L (20-31); Chloride 100 mmol/L (98-107); Potassium 4.8 mmol/L (3.5-5.1)
[2025-05-22 06:10] LABS: Calcium 8.3 mg/dL (8.7-10.4); Sodium 135 mmol/L (136-145)
[2025-05-22 06:14] LABS: BUN/Creatinine Ratio 25.6 (10.0-20.0)
[2025-05-22 06:35] LABS: Blood Urea Nitrogen 63 mg/dL (9-23); Glucose 153 mg/dL (74-106)
[2025-05-22 07:01] LABS: Nucleated Red Blood Cells % 1.0 %; Total Cells Counted 100.0 (100)
--- NOTE | 2025-05-22 09:01 | DVHPN2 ---
Progress Note Date Seen: May 22, 2025 Resident Creating Document: PATY BURNS RESIDENT Medical Necessity Reason Pt with a Central, PICC or Fol: No Subjective Review of Systems Patient seen and examined at bedside Last bowel movement 2 days ago Passing gas Notes decreasing appetite S/p paracentesis with 3.8 L removed Up trending WBCs Objective vital signs Vital Sign Date Time Temp Pulse Resp B/P (MAP) Pulse Ox O2 Delivery O2 Flow Rate FiO2 05/22/25 08:35 97.9 75 19 123/74 (90) 92 97.9 05/22/25 08:00 Nasal Cannula* 2 28 Total Intake and Output 05/21/25 05/21/25 05/22/25 15:00 23:00 07:00 Intake Total 755 ml 900 ml Balance 755 ml 900 ml medications Current Medications Medications Dose Ordered Sig/Andrew Route Start Time Stop Time Status Last Admin Dose Admin Albuterol 2.5 mg Q6HPRN PRN NEB 05/13/25 00:45 Cancel Ondansetron HCl 4 mg Q4HP PRN IV 05/13/25 00:45 Acetaminophen 650 mg Q6HP PRN PO 05/13/25 00:45 Octreotide Acetate 100 mcg TID SUBCUT 05/14/25 14:00 05/22/25 06:23 100 MCG Metronidazole 100 ml @ 100 mls/hr Q8HR IV 05/15/25 14:00 05/22/25 06:21 100 MLS/HR Piperacillin Sod/ Tazobactam Sod 100 ml @ 25 mls/hr Q12HR IV 05/21/25 10:00 05/21/25 22:00 25 MLS/HR Pantoprazole Sodium 40 mg BID@0600,1700 PO 05/21/25 17:00 05/22/25 06:21 40 MG Examination General Appearance: Cooperative. Well developed. In mild distress Pulmonary/Respiratory: Equal bilateral air entry Cardiovascular/Chest: Regular rate and rhythm. No murmurs. No JVD. Abdominal Exam: Normal bowel sounds. Distended but Soft. normal abdomen, no visible veins, Nontender. Ankle Exam: Negative ankle edema Neuro/Mental Status: A&O x4. Coherent. Skin Exam: Normal inspection. Normal color. Warm. Dry laboratory and microbiology Laboratory Tests 05/22/25 05:32 Test 05/22/25 05:32 Range/Units Serum Glucose 153 H 74-106 mg/dL Microbiology Date/Time Source Procedure Growth Status 05/13/25 09:40 Ascities Fluid Gram Stain - Final Complete 05/13/25 09:40 Ascities Fluid Body Fluid Culture - Final Complete 05/12/25 23:25 Blood Blood Culture - Final NO GROWTH AFTER 5 DAYS OF INCUBATION. Complete Labs and/or images reviewed: Labs reviewed by me, Image(s) reviewed by me Problem List/Assessment/Plan Problem List/Assessment/Plan Acute intractable abdominal pain, now resolved Abdominal ascites, malignant versus portal hypertension related Omental nodularity on CT abdomen pelvis Peritonitis Acute versus chronic diarrhea History of fatty liver, liver cirrhosis? GEORGE, likely hemodynamically mediated/VMN Chronic respiratory failure History of non-Hodgkin's lymphoma Cholelithiasis Lower GI bleed? Hematochezia versus melena Heart failure with reduced ejection fraction Plan: S/p endoscopy, details and findings on the endoscopy were discussed with the patient and spouse at bedside in great detail, all questions were answered and concerns were addressed Request records from [place]; patient completed colonoscopy and endoscopy 5 years ago at [place]. Right upper quadrant ultrasound: Nodular liver surface suggestive of cirrhosis. Small amount of ascites throughout the abdomen. Contracted gallbladder. No definite stones identified. No sonographic Fuchs's sign. Enlarged common bile duct at 14 mm. Ordered stool occult blood, stool WBCs, stool bacterial culture elevated CA 19 9, CA 125 and CEA Continue antibiotics IV Protonix 40 mg daily Plan to transfer to [facility] for further oncologic management and workup. Thank you so much for the opportunity to consult on your patient. GI team will follow the patient. In case of any questions or concerns please feel free to reach out. Plan discussed with Dr. Webster Plan discussed with: Patient, Spouse, Other (RN) Dietary Evaluation Review Comments: Nutrition Recommendation: 1) Consider 2 gm Na diet 2) Monitor PO intake, lab values, weight trend, and I/O Expected Outcomes/Goals: Lab values to improve Fu 3-5 days PATY BURNS RESIDENT May 22, 2025 09:01
--- NOTE | 2025-05-22 10:48 | DVHPN2 ---
Progress Note Date Seen: May 22, 2025 Medical Necessity Reason Pt with a Central, PICC or Fol: No Subjective Patient reports: No new complaints Review of Systems: HEENT:Normal, CVS:Normal, RESPIRATORY:Normal, GI:Normal, :Normal, MSK:Normal, NEURO:Normal Objective vital signs Vital Sign Date Time Temp Pulse Resp B/P (MAP) Pulse Ox O2 Delivery O2 Flow Rate FiO2 05/22/25 08:35 97.9 75 19 123/74 (90) 92 97.9 05/22/25 08:00 Nasal Cannula* 2 28 Total Intake and Output 05/21/25 05/21/25 05/22/25 15:00 23:00 07:00 Intake Total 755 ml 900 ml Balance 755 ml 900 ml medications Current Medications Medications Dose Ordered Sig/Andrew Route Start Time Stop Time Status Last Admin Dose Admin Albuterol 2.5 mg Q6HPRN PRN NEB 05/13/25 00:45 Cancel Ondansetron HCl 4 mg Q4HP PRN IV 05/13/25 00:45 Acetaminophen 650 mg Q6HP PRN PO 05/13/25 00:45 Octreotide Acetate 100 mcg TID SUBCUT 05/14/25 14:00 05/22/25 06:23 100 MCG Metronidazole 100 ml @ 100 mls/hr Q8HR IV 05/15/25 14:00 05/22/25 06:21 100 MLS/HR Piperacillin Sod/ Tazobactam Sod 100 ml @ 25 mls/hr Q12HR IV 05/21/25 10:00 05/22/25 10:07 25 MLS/HR Pantoprazole Sodium 40 mg BID@0600,1700 PO 05/21/25 17:00 05/22/25 06:21 40 MG Examination: GENERAL:Normal, HEENT:Normal, NECK:Normal, LUNGS:Normal, CVS:Normal, ABDOMEN:Normal, ABDOMEN:Abnormal (ascites), MSK:Normal, SKIN:Normal, NEURO:Normal, :Normal laboratory and microbiology Laboratory Tests 05/22/25 05:32 Test 05/22/25 05:32 Range/Units Serum Glucose 153 H 74-106 mg/dL Microbiology Date/Time Source Procedure Growth Status 05/13/25 09:40 Ascities Fluid Gram Stain - Final Complete 05/13/25 09:40 Ascities Fluid Body Fluid Culture - Final Complete 05/12/25 23:25 Blood Blood Culture - Final NO GROWTH AFTER 5 DAYS OF INCUBATION. Complete Problem List/Assessment/Plan Problem List/Assessment/Plan #1 ascites: s/p repeat paracentesis #2 liver cirrhosis: check hep panel #3 non hodgkins lymphoma #4 h/o pacer #5 acute renal failure ?vasomotor nephropathy: ivf #6 wt loss #7 sepsis with ?sbp: iv zosyn #8 copd #9 omental nodularity- malignant cells in ascitic fluid: ?pancreatic advance care planning- full code- time spent 19 mins Plan discussed with: Patient My Orders My Orders Orders - HERB SERRATO MD Procedure Category Date Status Time * Freight Dispatcher CONS 05/21/25 Transmitted Consult Dietary Evaluation Review Comments: Nutrition Recommendation: 1) Consider 2 gm Na diet 2) Monitor PO intake, lab values, weight trend, and I/O Expected Outcomes/Goals: Lab values to improve Fu 3-5 days Date of Service: May 22, 2025 Billing Provider: HERB SERRATO MD Common Visit Codes: [id number] INP/OBS CARE(HIGH) HERB SERRATO MD May 22, 2025 10:48
[2025-05-22] MEDS: SODIUM CHLORIDE 0.9% 1,000 ML IV SCH (12:06)
[2025-05-22 13:07] LABS: Glucose, Body Fluid 124.0 mg/dL (.); LD, Body Fluid 643.0 IU/L (.)
[2025-05-22] MEDS: HYDROcodone-ACET 5/325MG TAB PO PRN (14:18)
--- NOTE | 2025-05-22 16:27 | DVHPN2 ---
Progress Note - Dictate Date Seen: May 22, 2025 Medical Necessity Reason Pt with a Central, PICC or Fol: No Subjective PT WITH CAROID STENOSIS S/P CERVICAL SPINE SURGERY CRYPTOGENIC CIRRHOSIS KYLIE HTN VOLUME DEPLETION PROGRESSIVE ASCITES R/O PERITONITIS HFrEF S/P BV AICD vital signs Vital Sign Date Time Temp Pulse Resp B/P (MAP) Pulse Ox O2 Delivery O2 Flow Rate FiO2 05/22/25 12:40 97.9 91 19 116/73 (87) 99 97.9 05/22/25 08:00 Nasal Cannula* 2 28 Total Intake and Output 05/21/25 05/21/25 05/22/25 15:00 23:00 07:00 Intake Total 755 ml 900 ml Balance 755 ml 900 ml medications Current Medications Medications Dose Ordered Sig/Andrew Route Start Time Stop Time Status Last Admin Dose Admin Albuterol 2.5 mg Q6HPRN PRN NEB 05/13/25 00:45 Cancel Ondansetron HCl 4 mg Q4HP PRN IV 05/13/25 00:45 Acetaminophen 650 mg Q6HP PRN PO 05/13/25 00:45 Octreotide Acetate 100 mcg TID SUBCUT 05/14/25 14:00 05/22/25 14:01 100 MCG Metronidazole 100 ml @ 100 mls/hr Q8HR IV 05/15/25 14:00 05/22/25 14:00 100 MLS/HR Piperacillin Sod/ Tazobactam Sod 100 ml @ 25 mls/hr Q12HR IV 05/21/25 10:00 05/22/25 10:07 25 MLS/HR Pantoprazole Sodium 40 mg BID@0600,1700 PO 05/21/25 17:00 05/22/25 06:21 40 MG Sodium Chloride 1,000 ml @ 60 mls/hr [id number] IV 05/22/25 10:45 05/22/25 12:06 60 MLS/HR Morphine Sulfate 1 mg Q4HP PRN IV 05/22/25 11:30 Acetaminophen/ Hydrocodone Bitart 1 tab Q8HPRN PRN PO 05/22/25 10:45 05/22/25 14:18 1 TAB objective HEENT: Normal ENT Inspection, PERRL/EOMI, Pharynx Normal, TMs Normal, Other (A TINY BLOOD VESSEL ON THE ROOF OF THE MOUTH IS BLEEDING, NO SWELLING AND ACTIVELY BLEEDING. NO BLOOD CLOTS, NO DENTAL AND GUM INFECTION. ) Neck: Full Range of Motion, Non-Tender, Normal, Normal Inspection Respiratory: Chest Non-Tender, Lungs Clear, No Accessory Muscle Use, No Respiratory Distress, Normal Breath Sounds Cardiovascular: No Edema, No JVD, No Murmur, No Gallop, Normal Peripheral Pulses, Regular Rate/Rhythm Breast Exam: Deferred Gastrointestinal: No Organomegaly, + ascite< shifting dullness Genitalia: Deferred Pelvic: Deferred Rectal: Deferred Extremities: No calf tenderness, Normal capillary refill, Normal inspection, Normal range of motion, Non-tender, No pedal edema Musculoskeletal : Apperance: Normal Neurologic: Alert, comber setter II-XII nml as Tested, No Motor Deficits, Normal Affect, Normal Mood, No Sensory Deficits Cerebellar Function: Normal Reflexes: Normal Skin: Dry, Normal Color, Warm Peripheral Pulses: 2+ carotid (R), 2+ carotid (L) Lymphatic: No Adenopathy laboratory and microbiology Laboratory Tests 05/22/25 05:32 Test 05/22/25 05:32 Range/Units Serum Glucose 153 H 74-106 mg/dL Problem List PERITONITIS ASICITES CIRRHOSIS HFrEF S/P BIV AICD ACUTE RENAL FAILURE Assessment/Plan ABX S/P PARACENTESIS SLOW VOLUME REPLETION WITH ALBUMIN fFLUID WBC TRENDING DOWN AFTER VANCO DOSE GIVEN possible gi malignancy GI W/U WILL DISCUSS WITH PT SHE WANTS REFERRAL TO [facility] SINCE NON HD LYMPHOMA WAS TREATED AT [facility] DC ROCEPHIN TO ZOSYN BECAUSE OF GROUP D STREP COVERAGE LE SWELLING C/W WITH DVT START LOVENOX LE VENOUS DOPPLER Dietary Evaluation Review Comments: Nutrition Recommendation: 1) Consider 2 gm Na diet 2) Monitor PO intake, lab values, weight trend, and I/O Expected Outcomes/Goals: Lab values to improve Fu 3-5 days Plan discussed with: Patient RUDY CHAKRABORTY MD May 22, 2025 16:27
--- NOTE | 2025-05-22 16:42 | DVHPN2 ---
Progress Note Date Seen: May 22, 2025 Medical Necessity Reason Pt with a Central, PICC or Fol: No Subjective Patient reports: No new complaints Review of Systems: Deferred Objective vital signs Vital Sign Date Time Temp Pulse Resp B/P (MAP) Pulse Ox O2 Delivery O2 Flow Rate FiO2 05/22/25 12:40 97.9 91 19 116/73 (87) 99 97.9 05/22/25 08:00 Nasal Cannula* 2 28 Total Intake and Output 05/21/25 05/21/25 05/22/25 15:00 23:00 07:00 Intake Total 755 ml 900 ml Balance 755 ml 900 ml medications Current Medications Medications Dose Ordered Sig/Andrew Route Start Time Stop Time Status Last Admin Dose Admin Albuterol 2.5 mg Q6HPRN PRN NEB 05/13/25 00:45 Cancel Ondansetron HCl 4 mg Q4HP PRN IV 05/13/25 00:45 Acetaminophen 650 mg Q6HP PRN PO 05/13/25 00:45 Octreotide Acetate 100 mcg TID SUBCUT 05/14/25 14:00 05/22/25 14:01 100 MCG Metronidazole 100 ml @ 100 mls/hr Q8HR IV 05/15/25 14:00 05/22/25 14:00 100 MLS/HR Piperacillin Sod/ Tazobactam Sod 100 ml @ 25 mls/hr Q12HR IV 05/21/25 10:00 05/22/25 10:07 25 MLS/HR Pantoprazole Sodium 40 mg BID@0600,1700 PO 05/21/25 17:00 05/22/25 06:21 40 MG Sodium Chloride 1,000 ml @ 60 mls/hr [id number] IV 05/22/25 10:45 05/22/25 12:06 60 MLS/HR Morphine Sulfate 1 mg Q4HP PRN IV 05/22/25 11:30 Acetaminophen/ Hydrocodone Bitart 1 tab Q8HPRN PRN PO 05/22/25 10:45 05/22/25 14:18 1 TAB Enoxaparin Sodium 70 mg Q12HR SC 05/22/25 22:00 UNV Examination: GENERAL:Normal, ABDOMEN:Abnormal, MSK:Normal, NEURO:Normal laboratory and microbiology Laboratory Tests 05/22/25 05:32 Test 05/22/25 05:32 Range/Units Serum Glucose 153 H 74-106 mg/dL Microbiology Date/Time Source Procedure Growth Status 05/21/25 10:30 Ascities Fluid Gram Stain - Final Resulted 05/21/25 10:30 Ascities Fluid Body Fluid Culture - Preliminary Resulted 05/12/25 23:25 Blood Blood Culture - Final NO GROWTH AFTER 5 DAYS OF INCUBATION. Complete Problem List/Assessment/Plan Problem List/Assessment/Plan Acute kidney injury hemodynamically mediated likely hepatorenal syndrome no previous ckd hx GFR > 70 in 2023 Ascites s/p large volume paracentesis/decompensated cirrhosis given hx nonhodgkin lymphoma there is high concern for malignant ascites Hypornatremia sirs Extensive omental/peritoneal nodularity questionable metastatic disease per CT scan recs stable renal function will f/u closely Remains nonoliguric given ascites will not give ivf Plan discussed with: Patient Dietary Evaluation Review Comments: Nutrition Recommendation: 1) Consider 2 gm Na diet 2) Monitor PO intake, lab values, weight trend, and I/O Expected Outcomes/Goals: Lab values to improve Fu 3-5 days FLYNN MUNGUIA MD May 22, 2025 16:42
--- NOTE | 2025-05-22 17:47 | DVH ---
Left lower extremity venous duplex Clinical History: DVT Comparison: BILAT LOW EXT ART DUPLEX on DOS: 02/01/22 Technique: Duplex Doppler evaluation of the deep venous system of the left lower extremity from the common femor al vein to the popliteal vein including color Doppler and spectral/pulsed waveform analysis was perfo rmed. Findings: Occlusive DVT is seen throughout the common femoral vein, femoral vein, popliteal vein, and posterior tibial vein. Impression: 1. Extensive occlusive DVT throughout the left lower extremity.
[2025-05-23] VITALS (11 sets, daily range): BP systolic 110–123; BP diastolic 67–78; PULSE 85–106; RESP 16–20; TEMP 97.6–98.6; O2SAT 97–100
[2025-05-23] MEDS: PIPERACILLIN-TAZOB 3.375GM 100 ML IV SCH (01:10)
[2025-05-23 06:37] LABS: Hematocrit 38.1 % (36.0-46.0); Hemoglobin 12.4 g/dL (12.2-16.2); Mean Corpuscular Hemoglobin 29.9 pg (28.0-32.0); Mean Corpuscular Volume 92.2 fL (80.0-100.0)
[2025-05-23 06:48] LABS: Chloride 99 mmol/L (98-107); Potassium 4.5 mmol/L (3.5-5.1)
[2025-05-23 06:49] LABS: Anion Gap 15 (5-15)
[2025-05-23 06:55] LABS: BUN/Creatinine Ratio 15.7 (10.0-20.0)
[2025-05-23 06:57] LABS: Blood Urea Nitrogen 45 mg/dL (9-23); Calcium 8.3 mg/dL (8.7-10.4); Carbon Dioxide 18 mmol/L (20-31); Glucose 138 mg/dL (74-106); Sodium 132 mmol/L (136-145)
[2025-05-23 07:08] LABS: RBC Morphology Normal; Total Cells Counted 100.0 (100)
--- NOTE | 2025-05-23 09:22 | DVHPN2 ---
Progress Note Date Seen: May 23, 2025 Resident Creating Document: PATY BURNS RESIDENT Medical Necessity Reason Pt with a Central, PICC or Fol: No Subjective Review of Systems Patient seen and examined at bedside Denies any abdominal pain Notes some nausea, but no vomiting Last bowel movement this morning, normal in color and consistency Up trending WBC Objective vital signs Vital Sign Date Time Temp Pulse Resp B/P (MAP) Pulse Ox O2 Delivery O2 Flow Rate FiO2 05/23/25 05:00 98.1 87 18 117/68 (84) 99 98.1 05/22/25 20:00 Nasal Cannula* 2 28 Total Intake and Output 05/22/25 05/22/25 05/23/25 15:00 23:00 07:00 Intake Total 300 ml 100 ml 500 ml Output Total 640 ml Balance 300 ml -540 ml 500 ml medications Current Medications Medications Dose Ordered Sig/Andrew Route Start Time Stop Time Status Last Admin Dose Admin Albuterol 2.5 mg Q6HPRN PRN NEB 05/13/25 00:45 Cancel Ondansetron HCl 4 mg Q4HP PRN IV 05/13/25 00:45 Acetaminophen 650 mg Q6HP PRN PO 05/13/25 00:45 Octreotide Acetate 100 mcg TID SUBCUT 05/14/25 14:00 05/23/25 06:00 100 MCG Metronidazole 100 ml @ 100 mls/hr Q8HR IV 05/15/25 14:00 05/23/25 05:59 100 MLS/HR Pantoprazole Sodium 40 mg BID@0600,1700 PO 05/21/25 17:00 05/23/25 06:00 40 MG Sodium Chloride 1,000 ml @ 60 mls/hr [id number] IV 05/22/25 10:45 05/22/25 12:06 60 MLS/HR Morphine Sulfate 1 mg Q4HP PRN IV 05/22/25 11:30 Acetaminophen/ Hydrocodone Bitart 1 tab Q8HPRN PRN PO 05/22/25 10:45 05/22/25 23:16 1 TAB Enoxaparin Sodium 70 mg DAILY SC 05/23/25 10:00 Piperacillin Sod/ Tazobactam Sod 100 ml @ 25 mls/hr Q12HR IV 05/23/25 01:00 05/23/25 01:10 25 MLS/HR Examination General Appearance: Cooperative. Well developed. In mild distress Pulmonary/Respiratory: Equal bilateral air entry Cardiovascular/Chest: Regular rate and rhythm. No murmurs. No JVD. Abdominal Exam: Normal bowel sounds. Distended but Soft. normal abdomen, no visible veins, Nontender. Ankle Exam: Negative ankle edema Neuro/Mental Status: A&O x4. Coherent. Skin Exam: Normal inspection. Normal color. Warm. Dry laboratory and microbiology Laboratory Tests 05/23/25 06:03 Test 05/23/25 06:03 Range/Units Serum Glucose 138 H 74-106 mg/dL Microbiology Date/Time Source Procedure Growth Status 05/21/25 10:30 Ascities Fluid Gram Stain - Final Resulted 05/21/25 10:30 Ascities Fluid Body Fluid Culture - Preliminary Resulted 05/12/25 23:25 Blood Blood Culture - Final NO GROWTH AFTER 5 DAYS OF INCUBATION. Complete Labs and/or images reviewed: Labs reviewed by me, Image(s) reviewed by me Problem List/Assessment/Plan Problem List/Assessment/Plan Acute intractable abdominal pain, now resolved Abdominal ascites, malignant versus portal hypertension related Omental nodularity on CT abdomen pelvis Peritonitis Acute versus chronic diarrhea History of fatty liver, liver cirrhosis? GEORGE, likely hemodynamically mediated/VMN Chronic respiratory failure History of non-Hodgkin's lymphoma Cholelithiasis Lower GI bleed? Hematochezia versus melena Heart failure with reduced ejection fraction Left lower extremity occlusive DVT Hypercoagulable state likely due to malignancy Plan: S/p endoscopy, details and findings on the endoscopy were discussed with the patient and spouse at bedside in great detail, all questions were answered and concerns were addressed Request records from [place]; patient completed colonoscopy and endoscopy 5 years ago at [place]. Right upper quadrant ultrasound: Nodular liver surface suggestive of cirrhosis. Small amount of ascites throughout the abdomen. Contracted gallbladder. No definite stones identified. No sonographic Fuchs's sign. Enlarged common bile duct at 14 mm. Ordered stool occult blood, stool WBCs, stool bacterial culture elevated CA 19 9, CA 125 and CEA Continue antibiotics IV Protonix 40 mg daily Plan to transfer to [facility] for further oncologic management and workup. Thank you so much for the opportunity to consult on your patient. GI team will follow the patient. In case of any questions or concerns please feel free to reach out. Plan discussed with Dr. Webster Plan discussed with: Patient, Spouse, Other (RN) Dietary Evaluation Review Comments: Nutrition Recommendation: 1) Consider 2 gm Na diet 2) Monitor PO intake, lab values, weight trend, and I/O Expected Outcomes/Goals: Lab values to improve Fu 3-5 days PATY BURNS RESIDENT May 23, 2025 09:22
[2025-05-23] MEDS: ENOXAPARIN SOD 80 MG/0.8ML SYRINGE SC SCH (10:27)
[2025-05-23] MEDS: MIDAZOLAM HCL 2MG/2ML 2ml VIAL (1mg/ml) ONE (13:49)
[2025-05-23] MEDS: LIDOCAINE 2%HCL (LOCAL ANESTH.) INJ 20ML MDV ONE (13:49)
[2025-05-23] MEDS: HEPARIN SODIUM (PORCINE) 5000 UNITS/ML 1ML VIAL ONE (13:49)
[2025-05-23] MEDS: fentaNYL CITRATE 100 MCG/2 ML VL ONE (13:49)
[2025-05-23] MEDS: IODIXANOL 320MG/ML 100ML BTL IV ONE (13:50)
[2025-05-23] MEDS ORDERED: TEMAZEPAM 15 MG CAP PO PRN (14:00)
--- NOTE | 2025-05-23 15:41 | DVH ---
XY PERCU.VENOUS THROMBECTOMY, HISTORY: Acute / chronic DVT (Iliocaval, femoral popliteal) with LLE edema, and acute purple discolor ation of the left foot with swelling. PROCEDURE: Informed consent was obtained. The patient was placed on the fluoroscopic table in prone p osition. The left popliteal fossa was prepped with chlorhexidine which was allowed to dry and draped in the usual sterile fashion. Time out was performed. Following administration of 1% local lidocaine, the left popliteal vein was accessed with a micropuncture set under ultrasound guidance, and an imag e documenting patency sent to PACS. A 6 Lao sheath was placed into the popliteal vein. A venogram of the popliteal vein was obtained. A wire and catheter were placed into the IVC and a venacavogram w as obtained. An amplatz wire was positioned into the SVC. A 16 Fr Inari sheath was placed into the po pliteal vein. Mechanical thrombectomy was performed using the Inari Clot Treiver device. 4 total pass es were performed. 5000 units of heparin was given IV. A completion venogram of the left lower extrem ity and iliac and IVC were obtained. The introducer sheath was removed and the venotomy closed with m anual compression and a Flow Stasis device. No immediate complication was identified. DAP 857 FLUOROSCOPY TIME: 9.3 minutes. CONTRAST USED: 60 mL Isovue 300. SEDATION: Dr. Denis Ceja was personally responsible for the administration of moderate sedation during the procedure performed, including the use of an independent trained observer who had no other duties during the procedure. The drugs utilized were IV fentanyl and versed (see nursing log for details). The total time of supervision by the attending physician was approximately 75 minutes. FINDINGS: Prominent thrombus in the popliteal, femoral, common femoral, external iliac, common iliac vein with mild extension into the IVC at the confluence. Majority of thrombus extracted with automobile mechanic al thrombectomy. IMPRESSION: Prominent thrombus in the popliteal, femoral, common femoral, external iliac, common iliac vein with mild extension into the IVC at the confluence. Majority of thrombus extracted with mechanical thrombe ctomy. Poor inflow is suggested from the tibial veins. Recommend elevation of the left leg with 3 pillows. PLAN: Left leg straight for 2 hours. Recommend heparin drip. Will remove flowstasis device tomorrow.
[2025-05-23 19:47] LABS: INR 1.13 (0.9-1.15); Partial Thromboplastin Time 50.8 SEC (24.5-34.5); Prothrombin Time 11.8 sec (9.3-11.8)
[2025-05-23] MEDS: HEPARIN DRIP/D5W 100UNITS/ML 250 ML IV SCH (21:39)
--- NOTE | 2025-05-23 22:26 | DVHPN2 ---
Progress Note Date Seen: May 23, 2025 Medical Necessity Reason Pt with a Central, PICC or Fol: No Subjective Patient reports: No new complaints Review of Systems: Deferred Objective vital signs Vital Sign Date Time Temp Pulse Resp B/P (MAP) Pulse Ox O2 Delivery O2 Flow Rate FiO2 05/23/25 17:00 97.8 98 17 123/73 (90) 98 97.8 05/23/25 08:10 Nasal Cannula* 2 28 Total Intake and Output 05/22/25 05/22/25 05/23/25 15:00 23:00 07:00 Intake Total 300 ml 100 ml 500 ml Output Total 640 ml Balance 300 ml -540 ml 500 ml medications Current Medications Medications Dose Ordered Sig/Andrew Route Start Time Stop Time Status Last Admin Dose Admin Albuterol 2.5 mg Q6HPRN PRN NEB 05/13/25 00:45 Cancel Ondansetron HCl 4 mg Q4HP PRN IV 05/13/25 00:45 Acetaminophen 650 mg Q6HP PRN PO 05/13/25 00:45 Octreotide Acetate 100 mcg TID SUBCUT 05/14/25 14:00 05/23/25 21:14 100 MCG Metronidazole 100 ml @ 100 mls/hr Q8HR IV 05/15/25 14:00 05/23/25 21:13 100 MLS/HR Pantoprazole Sodium 40 mg BID@0600,1700 PO 05/21/25 17:00 05/23/25 16:50 40 MG Sodium Chloride 1,000 ml @ 60 mls/hr [id number] IV 05/22/25 10:45 05/22/25 12:06 60 MLS/HR Morphine Sulfate 1 mg Q4HP PRN IV 05/22/25 11:30 Acetaminophen/ Hydrocodone Bitart 1 tab Q8HPRN PRN PO 05/22/25 10:45 05/23/25 16:29 1 TAB Piperacillin Sod/ Tazobactam Sod 100 ml @ 25 mls/hr Q12HR IV 05/23/25 01:00 05/23/25 10:27 25 MLS/HR Heparin Sodium/ Dextrose 250 ml @ 12 mls/hr [id number] IV 05/23/25 20:30 05/23/25 21:39 12 MLS/HR Temazepam 15 mg HSPRN PRN PO 05/23/25 14:00 laboratory and microbiology Laboratory Tests 05/23/25 06:03 Test 05/23/25 06:03 Range/Units Serum Glucose 138 H 74-106 mg/dL Microbiology Date/Time Source Procedure Growth Status 05/21/25 10:30 Ascities Fluid Gram Stain - Final Resulted 05/21/25 10:30 Ascities Fluid Body Fluid Culture - Preliminary Resulted 05/12/25 23:25 Blood Blood Culture - Final NO GROWTH AFTER 5 DAYS OF INCUBATION. Complete Problem List/Assessment/Plan Problem List/Assessment/Plan Acute kidney injury hemodynamically mediated likely hepatorenal syndrome no previous ckd hx GFR > 70 in 2023 Ascites s/p large volume paracentesis/decompensated cirrhosis given hx nonhodgkin lymphoma there is high concern for malignant ascites Hypornatremia sirs Extensive omental/peritoneal nodularity questionable metastatic disease per CT scan recs stable renal function will f/u closely Remains nonoliguric given ascites will not give ivf Plan discussed with: Patient Dietary Evaluation Review Comments: Nutrition Recommendation: 1) Consider 2 gm Na diet 2) Monitor PO intake, lab values, weight trend, and I/O Expected Outcomes/Goals: Lab values to improve Fu 3-5 days FLYNN MUNGUIA MD May 23, 2025 22:26
[2025-05-23] MEDS: MELATONIN 5 MG TAB PO ONE (22:55)
[2025-05-23] MEDS: MORPHINE SULFATE 4 MG/ML SYR/VIAL IV PRN (22:56)
[2025-05-24] VITALS (8 sets, daily range): BP systolic 103–131; BP diastolic 63–77; PULSE 82–93; RESP 12–20; TEMP 96.6–98; O2SAT 98–100
[2025-05-24] MEDS: ACETAMINOPHEN 325 MG TAB PO PRN (00:15)
[2025-05-24 04:07] LABS: Hematocrit 34.9 % (36.0-46.0); Hemoglobin 11.5 g/dL (12.2-16.2); Mean Corpuscular Hemoglobin 30.1 pg (28.0-32.0); Mean Corpuscular Volume 90.9 fL (80.0-100.0)
[2025-05-24 04:40] LABS: Alkaline Phosphatase 97 U/L (46-116); Anion Gap 14 (5-15); BUN/Creatinine Ratio 16.1 (10.0-20.0); Chloride 98 mmol/L (98-107); Potassium 4.7 mmol/L (3.5-5.1); Total Protein 6.1 g/dL (5.7-8.2)
[2025-05-24 04:41] LABS: Bilirubin, Total 0.3 mg/dL (0.2-1.0)
[2025-05-24 05:10] LABS: Alanine Aminotransferase < 9 U/L (7-40); Albumin 3.1 g/dL (3.2-4.8); Blood Urea Nitrogen 48 mg/dL (9-23); Calcium 8.4 mg/dL (8.7-10.4); Carbon Dioxide 17 mmol/L (20-31); Glucose 179 mg/dL (74-106); Sodium 129 mmol/L (136-145)
--- NOTE | 2025-05-24 06:12 | DVHDS ---
DATE OF DISCHARGE: 05/23/2025 TRANSFER SUMMARY The patient is an 80-year-old lady who was admitted with history of abdominal distention, nausea, and weight loss. She has history of lymphoma, COPD, chronic respiratory failure, pacemaker placement, splenectomy, and hypertension. HOSPITAL COURSE: The patient underwent paracentesis with removal of 3.6 liters of fluid. The patient had abdominal CT that showed large volume ascites with diffuse omental nodularity. The patient's ascitic fluid showed evidence of malignancy likely from the pancreatic or biliary/upper GI tract. The patient underwent MRCP that showed evidence of dilated CBD with pancreatic parenchymal atrophy with small pancreatic cystic lesions. She also had evidence of cirrhosis of the liver with omental caking. The patient's CA 19-9 was elevated at 220, CA 125 was 368. The patient was also in renal failure and was seen in Nephrology consult by Dr. Villalobos. The patient also had elevated white count and was placed on antibiotics. Her cultures have so far been negative. The patient developed swelling of the left leg and showed extensive DVT in the left leg. The patient was seen in Cardiology consult by Dr. Herron. The patient underwent upper endoscopy that showed evidence of mild duodenitis with mild antral gastritis. The patient will now be transferred to higher level of care probably [place] where she has established doctors including Oncology. 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 * Liver cirrhosis. * History of non-Hodgkin's lymphoma. * Left leg DVT. * History of pacemaker. * Acute renal failure, questionable vasomotor nephropathy. * Questionable sepsis, questionably SIRS with SVT. * COPD with chronic respiratory failure. Time spent in discharge planning and review of plan with the patient, family, and paperwork was 41 minutes. MD JOSE Hubbard/LEONARD/LAZARUS TID: [id number] RECEIPT: [id number]
[2025-05-24 06:31] LABS: Smudge Cells 1 /100 WBC; Total Cells Counted 100.0 (100)
[2025-05-24 08:15] LABS: INR 1.13 (0.9-1.15); Prothrombin Time 11.8 sec (9.3-11.8)
[2025-05-24 08:22] LABS: Partial Thromboplastin Time > 139.0 SEC (24.5-34.5)
--- NOTE | 2025-05-24 08:39 | CONS ---
Pharmacy Clinical Information: HEPARIN DRIP CURRENTLY PAUSED DUE TO APTT > 139 AFTER 1 HR, DRIP TO RESTART AT RATE 900 UNITS/HR NEXT APTT DRAW SCHEDULED FOR 1530 PER RX PROTOCOL DOTTIE VILA PHARMACIST May 24, 2025 08:39
--- NOTE | 2025-05-24 08:59 | DVHPN2 ---
Progress Note - Dictate Date Seen: May 23, 2025 Medical Necessity Reason Pt with a Central, PICC or Fol: No Subjective PT WITH CAROID STENOSIS S/P CERVICAL SPINE SURGERY CRYPTOGENIC CIRRHOSIS KYLIE HTN VOLUME DEPLETION PROGRESSIVE ASCITES R/O PERITONITIS HFrEF S/P BV AICD vital signs Vital Sign Date Time Temp Pulse Resp B/P (MAP) Pulse Ox O2 Delivery O2 Flow Rate FiO2 05/24/25 08:39 96.6 82 19 109/66 (80) 100 96.6 05/23/25 20:00 Nasal Cannula* 2 28 Total Intake and Output 05/23/25 05/23/25 05/24/25 15:00 23:00 07:00 Intake Total 985 ml 580 ml Balance 985 ml 580 ml medications Current Medications Medications Dose Ordered Sig/Andrew Route Start Time Stop Time Status Last Admin Dose Admin Albuterol 2.5 mg Q6HPRN PRN NEB 05/13/25 00:45 Cancel Ondansetron HCl 4 mg Q4HP PRN IV 05/13/25 00:45 Acetaminophen 650 mg Q6HP PRN PO 05/13/25 00:45 05/24/25 00:15 650 MG Octreotide Acetate 100 mcg TID SUBCUT 05/14/25 14:00 05/24/25 05:07 100 MCG Metronidazole 100 ml @ 100 mls/hr Q8HR IV 05/15/25 14:00 05/24/25 05:06 100 MLS/HR Pantoprazole Sodium 40 mg BID@0600,1700 PO 05/21/25 17:00 05/24/25 05:06 40 MG Sodium Chloride 1,000 ml @ 60 mls/hr [id number] IV 05/22/25 10:45 05/22/25 12:06 60 MLS/HR Morphine Sulfate 1 mg Q4HP PRN IV 05/22/25 11:30 05/23/25 22:56 1 MG Acetaminophen/ Hydrocodone Bitart 1 tab Q8HPRN PRN PO 05/22/25 10:45 05/23/25 16:29 1 TAB Piperacillin Sod/ Tazobactam Sod 100 ml @ 25 mls/hr Q12HR IV 05/23/25 01:00 05/23/25 22:00 25 MLS/HR Temazepam 15 mg HSPRN PRN PO 05/23/25 14:00 Heparin Sodium/ Dextrose 250 ml @ 9 mls/hr Q24H IV 05/24/25 09:30 objective HEENT: Normal ENT Inspection, PERRL/EOMI, Pharynx Normal, TMs Normal, Other (A TINY BLOOD VESSEL ON THE ROOF OF THE MOUTH IS BLEEDING, NO SWELLING AND ACTIVELY BLEEDING. NO BLOOD CLOTS, NO DENTAL AND GUM INFECTION. ) Neck: Full Range of Motion, Non-Tender, Normal, Normal Inspection Respiratory: Chest Non-Tender, Lungs Clear, No Accessory Muscle Use, No Respiratory Distress, Normal Breath Sounds Cardiovascular: No Edema, No JVD, No Murmur, No Gallop, Normal Peripheral Pulses, Regular Rate/Rhythm Breast Exam: Deferred Gastrointestinal: No Organomegaly, + ascite< shifting dullness Genitalia: Deferred Pelvic: Deferred Rectal: Deferred Extremities: No calf tenderness, Normal capillary refill, Normal inspection, Normal range of motion, Non-tender, No pedal edema Musculoskeletal : Apperance: Normal Neurologic: Alert, lastex thread winder II-XII nml as Tested, No Motor Deficits, Normal Affect, Normal Mood, No Sensory Deficits Cerebellar Function: Normal Reflexes: Normal Skin: Dry, Normal Color, Warm Peripheral Pulses: 2+ carotid (R), 2+ carotid (L) Lymphatic: No Adenopathy laboratory and microbiology Laboratory Tests 05/24/25 03:22 Test 05/24/25 03:22 Range/Units Serum Glucose 179 H 74-106 mg/dL Problem List PERITONITIS ASICITES CIRRHOSIS HFrEF S/P BIV AICD ACUTE RENAL FAILURE Assessment/Plan ABX S/P PARACENTESIS SLOW VOLUME REPLETION WITH ALBUMIN fFLUID WBC TRENDING DOWN AFTER VANCO DOSE GIVEN possible gi malignancy GI W/U WILL DISCUSS WITH PT SHE WANTS REFERRAL TO [facility] SINCE NON HD LYMPHOMA WAS TREATED AT [facility] DC ROCEPHIN TO ZOSYN BECAUSE OF GROUP D STREP COVERAGE LE SWELLING C/W WITH DVT START LOVENOX LE VENOUS DOPPLER POSITIVE FOR DVT THROMBECTOMY ANTICOAG Dietary Evaluation Review Comments: Nutrition Recommendation: 1) Consider 2 gm Na diet 2) Monitor PO intake, lab values, weight trend, and I/O Expected Outcomes/Goals: Lab values to improve Fu 3-5 days Plan discussed with: Patient Critical Care Time(min): 35 RUDY CHAKRABORTY MD May 24, 2025 08:59
--- NOTE | 2025-05-24 09:00 | DVHPN2 ---
Progress Note - Dictate Date Seen: May 24, 2025 Medical Necessity Reason Pt with a Central, PICC or Fol: No Subjective PT WITH CAROID STENOSIS S/P CERVICAL SPINE SURGERY CRYPTOGENIC CIRRHOSIS KYLIE HTN VOLUME DEPLETION PROGRESSIVE ASCITES R/O PERITONITIS HFrEF S/P BV AICD vital signs Vital Sign Date Time Temp Pulse Resp B/P (MAP) Pulse Ox O2 Delivery O2 Flow Rate FiO2 05/24/25 08:39 96.6 82 19 109/66 (80) 100 96.6 05/23/25 20:00 Nasal Cannula* 2 28 Total Intake and Output 05/23/25 05/23/25 05/24/25 15:00 23:00 07:00 Intake Total 985 ml 580 ml Balance 985 ml 580 ml medications Current Medications Medications Dose Ordered Sig/Andrew Route Start Time Stop Time Status Last Admin Dose Admin Albuterol 2.5 mg Q6HPRN PRN NEB 05/13/25 00:45 Cancel Ondansetron HCl 4 mg Q4HP PRN IV 05/13/25 00:45 Acetaminophen 650 mg Q6HP PRN PO 05/13/25 00:45 05/24/25 00:15 650 MG Octreotide Acetate 100 mcg TID SUBCUT 05/14/25 14:00 05/24/25 05:07 100 MCG Metronidazole 100 ml @ 100 mls/hr Q8HR IV 05/15/25 14:00 05/24/25 05:06 100 MLS/HR Pantoprazole Sodium 40 mg BID@0600,1700 PO 05/21/25 17:00 05/24/25 05:06 40 MG Sodium Chloride 1,000 ml @ 60 mls/hr [id number] IV 05/22/25 10:45 05/22/25 12:06 60 MLS/HR Morphine Sulfate 1 mg Q4HP PRN IV 05/22/25 11:30 05/23/25 22:56 1 MG Acetaminophen/ Hydrocodone Bitart 1 tab Q8HPRN PRN PO 05/22/25 10:45 05/23/25 16:29 1 TAB Piperacillin Sod/ Tazobactam Sod 100 ml @ 25 mls/hr Q12HR IV 05/23/25 01:00 05/23/25 22:00 25 MLS/HR Temazepam 15 mg HSPRN PRN PO 05/23/25 14:00 Heparin Sodium/ Dextrose 250 ml @ 9 mls/hr Q24H IV 05/24/25 09:30 objective HEENT: Normal ENT Inspection, PERRL/EOMI, Pharynx Normal, TMs Normal, Other (A TINY BLOOD VESSEL ON THE ROOF OF THE MOUTH IS BLEEDING, NO SWELLING AND ACTIVELY BLEEDING. NO BLOOD CLOTS, NO DENTAL AND GUM INFECTION. ) Neck: Full Range of Motion, Non-Tender, Normal, Normal Inspection Respiratory: Chest Non-Tender, Lungs Clear, No Accessory Muscle Use, No Respiratory Distress, Normal Breath Sounds Cardiovascular: No Edema, No JVD, No Murmur, No Gallop, Normal Peripheral Pulses, Regular Rate/Rhythm Breast Exam: Deferred Gastrointestinal: No Organomegaly, + ascite< shifting dullness Genitalia: Deferred Pelvic: Deferred Rectal: Deferred Extremities: No calf tenderness, Normal capillary refill, Normal inspection, Normal range of motion, Non-tender, No pedal edema Musculoskeletal : Apperance: Normal Neurologic: Alert, sat instructor II-XII nml as Tested, No Motor Deficits, Normal Affect, Normal Mood, No Sensory Deficits Cerebellar Function: Normal Reflexes: Normal Skin: Dry, Normal Color, Warm Peripheral Pulses: 2+ carotid (R), 2+ carotid (L) Lymphatic: No Adenopathy laboratory and microbiology Laboratory Tests 05/24/25 03:22 Test 05/24/25 03:22 Range/Units Serum Glucose 179 H 74-106 mg/dL Problem List PERITONITIS ASICITES CIRRHOSIS HFrEF S/P BIV AICD ACUTE RENAL FAILURE Assessment/Plan ABX S/P PARACENTESIS SLOW VOLUME REPLETION WITH ALBUMIN fFLUID WBC TRENDING DOWN AFTER VANCO DOSE GIVEN possible gi malignancy GI W/U WILL DISCUSS WITH PT SHE WANTS REFERRAL TO [facility] SINCE NON HD LYMPHOMA WAS TREATED AT [facility] DC ROCEPHIN TO ZOSYN BECAUSE OF GROUP D STREP COVERAGE LE SWELLING C/W WITH DVT START LOVENOX LE VENOUS DOPPLER POSITIVE FOR DVT THROMBECTOMY ANTICOAG Dietary Evaluation Review Comments: Nutrition Recommendation: 1) Consider 2 gm Na diet 2) Monitor PO intake, lab values, weight trend, and I/O Expected Outcomes/Goals: Lab values to improve Fu 3-5 days Plan discussed with: Patient Critical Care Time(min): 35 RUDY CHAKRABORTY MD May 24, 2025 08:59
[2025-05-24] MEDS ORDERED: HEPARIN DRIP/D5W 100UNITS/ML 250 ML IV SCH (09:30)
--- NOTE | 2025-05-24 09:43 | DVHPN2 ---
Subjective Patient complaining of severe pain to left lower extremity Reviewed: Care Plan, H&P, Labs, Medications, Previous Orders, Radiology Changes from previous H/P or p: No Changes General: Per HPI Objective Vitals Vital Signs Date Time Temp Pulse Resp B/P (MAP) Pulse Ox O2 Delivery O2 Flow Rate FiO2 05/24/25 08:39 96.6 82 19 109/66 (80) 100 96.6 05/23/25 20:00 Nasal Cannula* 2 28 Intake/Output Intake and Output 05/24/25 07:00 Intake Total 1565 ml Balance 1565 ml Intake Oral 1265 ml IV Total 300 ml # Voids 3 # Bowel Movements 1 General Appearance: Alert, Oriented X3, Cooperative, No acute distress HEENT: Atraumatic, PERRLA Lungs: Clear to auscultation, Normal air movement Cardiovascular: Regular rate Abdomen: Normal bowel sounds, Soft, No tenderness Extremities: Other (Left lower extremity swelling with ashen color) Skin: Dry, Intact Psych/Mental Status: Mental status NL, Mood NL Medications Current Medications Medications Dose Ordered Sig/Andrew Route Start Time Stop Time Status Last Admin Dose Admin Albuterol 2.5 mg Q6HPRN PRN NEB 05/13/25 00:45 Cancel Ondansetron HCl 4 mg Q4HP PRN IV 05/13/25 00:45 Acetaminophen 650 mg Q6HP PRN PO 05/13/25 00:45 05/24/25 00:15 650 MG Octreotide Acetate 100 mcg TID SUBCUT 05/14/25 14:00 05/24/25 05:07 100 MCG Metronidazole 100 ml @ 100 mls/hr Q8HR IV 05/15/25 14:00 05/24/25 05:06 100 MLS/HR Pantoprazole Sodium 40 mg BID@0600,1700 PO 05/21/25 17:00 05/24/25 05:06 40 MG Sodium Chloride 1,000 ml @ 60 mls/hr [id number] IV 05/22/25 10:45 05/22/25 12:06 60 MLS/HR Morphine Sulfate 1 mg Q4HP PRN IV 05/22/25 11:30 05/23/25 22:56 1 MG Acetaminophen/ Hydrocodone Bitart 1 tab Q8HPRN PRN PO 05/22/25 10:45 05/23/25 16:29 1 TAB Piperacillin Sod/ Tazobactam Sod 100 ml @ 25 mls/hr Q12HR IV 05/23/25 01:00 05/23/25 22:00 25 MLS/HR Temazepam 15 mg HSPRN PRN PO 05/23/25 14:00 Heparin Sodium/ Dextrose 250 ml @ 9 mls/hr Q24H IV 05/24/25 09:30 Laboratory Results Laboratory Tests 05/24/25 03:22 Chemistry Test 05/24/25 03:22 Albumin 3.1 g/dL (3.2-4.8) L Calcium Level 8.4 mg/dL (8.7-10.4) L Total Protein 6.1 g/dL (5.7-8.2) Coagulation Test 05/23/25 19:19 05/24/25 07:28 Prothrombin Time 11.8 sec (9.3-11.8) 11.8 sec (9.3-11.8) Prothrombin Time INR 1.13 (0.9-1.15) 1.13 (0.9-1.15) Activated Partial Thromboplast Time 50.8 SEC (24.5-34.5) H > 139.0 SEC (24.5-34.5) *H LFT Test 05/24/25 03:22 Alanine Aminotransferase (ALT) < 9 U/L (7-40) Alkaline Phosphatase 97 U/L (46-116) Aspartate Amino Transferase (AST) 40 U/L (13-40) Total Bilirubin 0.3 mg/dL (0.2-1.0) Urinalysis Test 05/12/25 22:00 05/14/25 00:00 05/14/25 10:38 Urine Color Yellow (Yellow) Urine Clarity Clear (Clear) Urine pH 5.0 (5.0-9.0) Urine Specific [place] 1.015 (1.001-1.035) Urine Protein 1+ (Negative) H Urine Ketones Trace (Negative) H Urine Blood Trace /uL (Negative) H Urine Nitrite Negative (Negative) Urine Bilirubin Negative (Negative) Urine Urobilinogen Normal mg/dL (Negative) Urine Leukocyte Esterase Negative /uL (Negative) Urine Glucose Normal mg/dL (Normal) Urine Protein/Creatinine Ratio 0.73 Urine Total Protein 65.9 mg/dL (1-14) H Urine Creatinine 91.41 mg/dL (30.0-125.0) Urine Sodium 15 mmol/L (40-220) L Microbiology Microbiology Date/Time Source Procedure Growth Status 05/21/25 10:30 Ascities Fluid Gram Stain - Final Resulted 05/21/25 10:30 Ascities Fluid Body Fluid Culture - Preliminary Resulted 05/12/25 23:25 Blood Blood Culture - Final NO GROWTH AFTER 5 DAYS OF INCUBATION. 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 Change pain management to oxycodone and Dilaudid for severe pain. Transfer to [facility] being held at this time due to hospital capacity. Patient notified -continue IV hydration -GI consultation -continue Rocephin and Flagyl -stop heparin drip, transitioned to Eliquis per protocol -O2 supplementation to keep saturation greater than 90% Total time spent with patient discussing and formulating plan of care: 35 minutes. This medical document was created using an electronic medical record system with [employer] dictation system. Although this document has been carefully reviewed, there may still be some phonetic and typographical errors. These areas are purely typographical due to imperfections of the software programs, and do not reflect any compromise in the patient's medical care. Plan discussed with: Patient, Other (RN) Date of Service: May 24, 2025 Billing Provider: KENNETH CORBETT NP Common Visit Codes: [id number] INP/OBS CARE(HIGH) KENNETH CORBETT NP May 24, 2025 09:43
[2025-05-24] MEDS ORDERED: HYDROmorphone HCL 2 MG/ML VL/or syr IV PRN (09:45)
--- NOTE | 2025-05-24 09:56 | DVHPN2 ---
Progress Note Date Seen: May 24, 2025 Resident Creating Document: PATY BURNS RESIDENT Medical Necessity Reason Pt with a Central, PICC or Fol: No Subjective Review of Systems Patient seen and examined at bedside Notes having back pain and left lower extremity pain Denies any nausea vomiting Up trending WBCs Objective vital signs Vital Sign Date Time Temp Pulse Resp B/P (MAP) Pulse Ox O2 Delivery O2 Flow Rate FiO2 05/24/25 08:39 96.6 82 19 109/66 (80) 100 96.6 05/23/25 20:00 Nasal Cannula* 2 28 Total Intake and Output 05/23/25 05/23/25 05/24/25 15:00 23:00 07:00 Intake Total 985 ml 580 ml Balance 985 ml 580 ml medications Current Medications Medications Dose Ordered Sig/Andrew Route Start Time Stop Time Status Last Admin Dose Admin Albuterol 2.5 mg Q6HPRN PRN NEB 05/13/25 00:45 Cancel Ondansetron HCl 4 mg Q4HP PRN IV 05/13/25 00:45 Acetaminophen 650 mg Q6HP PRN PO 05/13/25 00:45 05/24/25 00:15 650 MG Octreotide Acetate 100 mcg TID SUBCUT 05/14/25 14:00 05/24/25 05:07 100 MCG Metronidazole 100 ml @ 100 mls/hr Q8HR IV 05/15/25 14:00 05/24/25 05:06 100 MLS/HR Pantoprazole Sodium 40 mg BID@0600,1700 PO 05/21/25 17:00 05/24/25 05:06 40 MG Sodium Chloride 1,000 ml @ 60 mls/hr [id number] IV 05/22/25 10:45 05/22/25 12:06 60 MLS/HR Piperacillin Sod/ Tazobactam Sod 100 ml @ 25 mls/hr Q12HR IV 05/23/25 01:00 05/23/25 22:00 25 MLS/HR Temazepam 15 mg HSPRN PRN PO 05/23/25 14:00 Oxycodone HCl 5 mg Q6HP PRN PO 05/24/25 09:45 UNV Apixaban 10 mg BID PO 05/24/25 10:00 05/31/25 09:59 UNV Apixaban 5 mg BID PO 05/24/25 10:00 UNV Hydromorphone HCl 0.5 mg Q4HPRN PRN IV 05/24/25 09:45 UNV Examination General Appearance: Cooperative. Well developed. In mild distress Pulmonary/Respiratory: Equal bilateral air entry Cardiovascular/Chest: Regular rate and rhythm. No murmurs. No JVD. Abdominal Exam: Normal bowel sounds. Distended but Soft. normal abdomen, no visible veins, Nontender. Ankle Exam: Negative ankle edema Neuro/Mental Status: A&O x4. Coherent. Skin Exam: Normal inspection. Normal color. Warm. Dry laboratory and microbiology Laboratory Tests 05/24/25 03:22 Test 05/24/25 03:22 Range/Units Serum Glucose 179 H 74-106 mg/dL Microbiology Date/Time Source Procedure Growth Status 05/21/25 10:30 Ascities Fluid Gram Stain - Final Resulted 05/21/25 10:30 Ascities Fluid Body Fluid Culture - Preliminary Resulted 05/12/25 23:25 Blood Blood Culture - Final NO GROWTH AFTER 5 DAYS OF INCUBATION. Complete Labs and/or images reviewed: Labs reviewed by me, Image(s) reviewed by me Problem List/Assessment/Plan Problem List/Assessment/Plan Acute intractable abdominal pain, now resolved Abdominal ascites, malignant versus portal hypertension related Omental nodularity on CT abdomen pelvis Spontaneous bacterial peritonitis Sepsis due to above Acute versus chronic diarrhea History of fatty liver, liver cirrhosis? GEORGE, likely hemodynamically mediated/VMN Chronic respiratory failure History of non-Hodgkin's lymphoma Cholelithiasis Lower GI bleed? Hematochezia versus melena Heart failure with reduced ejection fraction Left lower extremity occlusive DVT Hypercoagulable state likely due to malignancy Plan: S/p endoscopy, details and findings on the endoscopy were discussed with the patient and spouse at bedside in great detail, all questions were answered and concerns were addressed Request records from [place]; patient completed colonoscopy and endoscopy 5 years ago at [place]. Right upper quadrant ultrasound: Nodular liver surface suggestive of cirrhosis. Small amount of ascites throughout the abdomen. Contracted gallbladder. No definite stones identified. No sonographic Fuchs's sign. Enlarged common bile duct at 14 mm. Ordered stool occult blood, stool WBCs, stool bacterial culture elevated CA 19 9, CA 125 and CEA Continue antibiotics IV Protonix 40 mg daily Plan to transfer to [facility] for further oncologic management and workup Thank you so much for the opportunity to consult on your patient. GI team will follow the patient. In case of any questions or concerns please feel free to reach out. Plan discussed with Dr. Webster Plan discussed with: Patient, Other (RN) Dietary Evaluation Review Comments: Nutrition Recommendation: 1) Consider 2 gm Na diet 2) Monitor PO intake, lab values, weight trend, and I/O Expected Outcomes/Goals: Lab values to improve Fu 3-5 days PATY BURNS RESIDENT May 24, 2025 09:56
--- NOTE | 2025-05-24 13:41 | DVHPN2 ---
Progress Note Date Seen: May 24, 2025 Medical Necessity Reason Pt with a Central, PICC or Fol: No Subjective Changes from previous H/P or p: No Changes Objective vital signs Vital Sign Date Time Temp Pulse Resp B/P (MAP) Pulse Ox O2 Delivery O2 Flow Rate FiO2 05/24/25 12:50 97.6 88 18 112/69 (83) 99 97.6 05/23/25 20:00 Nasal Cannula* 2 28 Total Intake and Output 05/23/25 05/23/25 05/24/25 15:00 23:00 07:00 Intake Total 985 ml 580 ml Balance 985 ml 580 ml medications Current Medications Medications Dose Ordered Sig/Andrew Route Start Time Stop Time Status Last Admin Dose Admin Albuterol 2.5 mg Q6HPRN PRN NEB 05/13/25 00:45 Cancel Ondansetron HCl 4 mg Q4HP PRN IV 05/13/25 00:45 Acetaminophen 650 mg Q6HP PRN PO 05/13/25 00:45 05/24/25 00:15 650 MG Octreotide Acetate 100 mcg TID SUBCUT 05/14/25 14:00 05/24/25 05:07 100 MCG Metronidazole 100 ml @ 100 mls/hr Q8HR IV 05/15/25 14:00 05/24/25 05:06 100 MLS/HR Pantoprazole Sodium 40 mg BID@0600,1700 PO 05/21/25 17:00 05/24/25 05:06 40 MG Sodium Chloride 1,000 ml @ 60 mls/hr [id number] IV 05/22/25 10:45 05/24/25 10:35 60 MLS/HR Piperacillin Sod/ Tazobactam Sod 100 ml @ 25 mls/hr Q12HR IV 05/23/25 01:00 05/24/25 10:25 25 MLS/HR Temazepam 15 mg HSPRN PRN PO 05/23/25 14:00 Oxycodone HCl 5 mg Q6HP PRN PO 05/24/25 09:45 05/24/25 10:24 5 MG Apixaban 10 mg BID PO 05/24/25 10:00 05/31/25 09:59 Apixaban 5 mg BID PO 05/31/25 10:00 Hydromorphone HCl 0.5 mg Q4HPRN PRN IV 05/24/25 09:45 Examination: GENERAL:Normal laboratory and microbiology Laboratory Tests 05/24/25 03:22 Test 05/24/25 03:22 Range/Units Serum Glucose 179 H 74-106 mg/dL Microbiology Date/Time Source Procedure Growth Status 05/21/25 10:30 Ascities Fluid Gram Stain - Final Resulted 05/21/25 10:30 Ascities Fluid Body Fluid Culture - Preliminary Resulted 05/12/25 23:25 Blood Blood Culture - Final NO GROWTH AFTER 5 DAYS OF INCUBATION. Complete Problem List/Assessment/Plan Problem List/Assessment/Plan Acute kidney injury hemodynamically mediated cannot exclude ATN/HRS no previous ckd hx GFR > 70 in 2023 new onset Ascites s/p large volume paracentesis given hx nonhodgkin lymphoma there is high concern for malignant ascites + CA 19.9 and Ca [address] no emergent indication for dialysis at this time no nsaids avoid contrast studies Plan discussed with: Patient Dietary Evaluation Review Comments: Nutrition Recommendation: 1) Consider 2 gm Na diet 2) Monitor PO intake, lab values, weight trend, and I/O Expected Outcomes/Goals: Lab values to improve Fu 3-5 days Total Time (mins): 22 ELENA CULVER MD May 24, 2025 13:41
[2025-05-24] MEDS: APIXABAN 5 MG TAB PO SCH (13:50)
[2025-05-24 14:49] LABS: Hematocrit 36.3 % (36.0-46.0); Hemoglobin 12.0 g/dL (12.2-16.2); Mean Corpuscular Hemoglobin 29.5 pg (28.0-32.0); Mean Corpuscular Volume 89.0 fL (80.0-100.0)
[2025-05-24 14:55] LABS: INR 1.03 (0.9-1.15); Partial Thromboplastin Time 33.3 SEC (24.5-34.5); Prothrombin Time 10.9 sec (9.3-11.8)
--- NOTE | 2025-05-24 15:06 | CONS ---
Pharmacy Clinical Information: NEW BASELINE APTT = 33.3 RE-START HEPARIN DRIP AT RATE 900 UNITS/HR NEXT APTT DRAW SCHEDULED FOR 2100 PER RX PROTOCOL DOTTIE VILA PHARMACIST May 24, 2025 15:06
[2025-05-24 15:44] LABS: Total Cells Counted 100.0 (100)
[2025-05-24] MEDS: HEPARIN DRIP/D5W 100UNITS/ML 250 ML IV SCH ×2 (16:09→22:53)
[2025-05-24] MEDS: Ensure HIGH Protein Chocolate 8oz Bottle PO SCH (18:55)
[2025-05-24 21:20] LABS: Prothrombin Time 12.7 sec (9.3-11.8)
[2025-05-24 21:21] LABS: INR 1.22 (0.9-1.15)
[2025-05-24 21:27] LABS: Partial Thromboplastin Time 124.9 SEC (24.5-34.5)
[2025-05-25] VITALS (8 sets, daily range): BP systolic 94–114; BP diastolic 50–79; PULSE 77–91; RESP 16–19; TEMP 97.7–98.7; O2SAT 96–99
[2025-05-25 05:31] LABS: Hematocrit 37.9 % (36.0-46.0); Hemoglobin 12.0 g/dL (12.2-16.2); Mean Corpuscular Hemoglobin 29.9 pg (28.0-32.0); Mean Corpuscular Volume 94.3 fL (80.0-100.0)
[2025-05-25 05:39] LABS: Chloride 99 mmol/L (98-107); Potassium 5.0 mmol/L (3.5-5.1)
[2025-05-25 05:40] LABS: Anion Gap 17 (5-15)
[2025-05-25 05:42] LABS: Calcium 8.1 mg/dL (8.7-10.4); Carbon Dioxide 15 mmol/L (20-31); Sodium 131 mmol/L (136-145)
[2025-05-25 05:45] LABS: BUN/Creatinine Ratio 25.0 (10.0-20.0)
[2025-05-25 05:46] LABS: INR 1.11 (0.9-1.15); Partial Thromboplastin Time 58.6 SEC (24.5-34.5); Prothrombin Time 11.6 sec (9.3-11.8)
[2025-05-25 06:08] LABS: Glucose 126 mg/dL (74-106)
[2025-05-25 06:09] LABS: Blood Urea Nitrogen 86 mg/dL (9-23)
[2025-05-25 06:17] LABS: Nucleated Red Blood Cells % 1.0 %; Total Cells Counted 100.0 (100)
[2025-05-25] MEDS: FUROSEMIDE 100 MG/10ML VIAL IV ONE (09:15)
--- NOTE | 2025-05-25 09:18 | DVHPN2 ---
Progress Note Date Seen: May 25, 2025 Medical Necessity Reason Pt with a Central, PICC or Fol: No Subjective Patient reports: Feels worse Objective vital signs Vital Sign Date Time Temp Pulse Resp B/P (MAP) Pulse Ox O2 Delivery O2 Flow Rate FiO2 05/25/25 05:00 98.0 86 18 94/50 (65) 96 98.0 05/24/25 20:00 Nasal Cannula* 2 28 Total Intake and Output 05/24/25 05/24/25 05/25/25 15:00 23:00 07:00 Intake Total 240 ml 950 ml Balance 240 ml 950 ml medications Current Medications Medications Dose Ordered Sig/Andrew Route Start Time Stop Time Status Last Admin Dose Admin Albuterol 2.5 mg Q6HPRN PRN NEB 05/13/25 00:45 Cancel Ondansetron HCl 4 mg Q4HP PRN IV 05/13/25 00:45 Acetaminophen 650 mg Q6HP PRN PO 05/13/25 00:45 05/24/25 00:15 650 MG Octreotide Acetate 100 mcg TID SUBCUT 05/14/25 14:00 05/25/25 06:02 100 MCG Metronidazole 100 ml @ 100 mls/hr Q8HR IV 05/15/25 14:00 05/25/25 06:02 100 MLS/HR Pantoprazole Sodium 40 mg BID@0600,1700 PO 05/21/25 17:00 05/25/25 05:53 40 MG Sodium Chloride 1,000 ml @ 60 mls/hr [id number] IV 05/22/25 10:45 05/24/25 10:35 60 MLS/HR Piperacillin Sod/ Tazobactam Sod 100 ml @ 25 mls/hr Q12HR IV 05/23/25 01:00 05/24/25 23:55 25 MLS/HR Temazepam 15 mg HSPRN PRN PO 05/23/25 14:00 Oxycodone HCl 5 mg Q6HP PRN PO 05/24/25 09:45 05/25/25 05:53 5 MG Hydromorphone HCl 0.5 mg Q4HPRN PRN IV 05/24/25 09:45 Enteral Nutritional Formula 240 ml TIDWM PO 05/24/25 18:00 05/24/25 18:55 240 ML Heparin Sodium/ Dextrose 250 ml @ 6 mls/hr Q24H IV 05/24/25 22:45 05/25/25 06:29 6 MLS/HR Examination: GENERAL:Abnormal, CVS:Normal, ABDOMEN:Abnormal, SKIN:Abnormal laboratory and microbiology Laboratory Tests 05/25/25 05:14 Test 05/25/25 05:14 Range/Units Serum Glucose 126 H 74-106 mg/dL Microbiology Date/Time Source Procedure Growth Status 05/21/25 10:30 Ascities Fluid Gram Stain - Final Resulted 05/21/25 10:30 Ascities Fluid Body Fluid Culture - Preliminary Resulted 05/12/25 23:25 Blood Blood Culture - Final NO GROWTH AFTER 5 DAYS OF INCUBATION. Complete Problem List/Assessment/Plan Problem List/Assessment/Plan Acute kidney injury hemodynamically mediated cannot exclude ATN/HRS worsening renal function today continue IVF, lasix IVP today rec r/o urinary retention clinical decline may require acute dialysis discussed this with patient who is saddened by this. no previous ckd hx GFR > 70 in 2023 hyperkalemia metabolic acidosis -change IVF to sodium bicarb drip new onset Ascites s/p large volume paracentesis diagnosis peritoneal carcinomatoses + CA 19.9 and Ca [address] s/p EGD primary team rec higher level of care extensive DVT left leg s/p thrombectomy yesterday now on AC no nsaids avoid contrast studies pending HLOC due to malignancy diagnosis guarded prognosis Plan discussed with: Patient Dietary Evaluation Review Comments: Nutrition Recommendation: 1) Consider 2 gm Na diet 2) Monitor PO intake, lab values, weight trend, and I/O Expected Outcomes/Goals: Lab values to improve Fu 3-5 days Total Time (mins): 40 ELENA CULVER MD May 25, 2025 09:18
--- NOTE | 2025-05-25 10:54 | DVHPN2 ---
Subjective Lower extremity pain has improved. Reviewed: Care Plan, H&P, Labs, Medications, Previous Orders, Radiology Changes from previous H/P or p: Changes General: Per HPI Objective Vitals Vital Signs Date Time Temp Pulse Resp B/P (MAP) Pulse Ox O2 Delivery O2 Flow Rate FiO2 05/25/25 09:00 98.1 86 19 101/54 (70) 98 98.1 05/24/25 20:00 Nasal Cannula* 2 28 Intake/Output Intake and Output 05/25/25 07:00 Intake Total 1190 ml Balance 1190 ml Intake Oral 990 ml IV Total 200 ml # Voids 2 General Appearance: Alert, Oriented X3, Cooperative, No acute distress HEENT: Atraumatic, PERRLA Lungs: Clear to auscultation, Normal air movement Cardiovascular: Regular rate Abdomen: Normal bowel sounds, Soft, No tenderness Extremities: Other (Left lower extremity swelling with ashen color) Skin: Dry, Intact Psych/Mental Status: Mental status NL, Mood NL Medications Current Medications Medications Dose Ordered Sig/Andrew Route Start Time Stop Time Status Last Admin Dose Admin Albuterol 2.5 mg Q6HPRN PRN NEB 05/13/25 00:45 Cancel Ondansetron HCl 4 mg Q4HP PRN IV 05/13/25 00:45 Acetaminophen 650 mg Q6HP PRN PO 05/13/25 00:45 05/24/25 00:15 650 MG Octreotide Acetate 100 mcg TID SUBCUT 05/14/25 14:00 05/25/25 06:02 100 MCG Metronidazole 100 ml @ 100 mls/hr Q8HR IV 05/15/25 14:00 05/25/25 06:02 100 MLS/HR Pantoprazole Sodium 40 mg BID@0600,1700 PO 05/21/25 17:00 05/25/25 05:53 40 MG Piperacillin Sod/ Tazobactam Sod 100 ml @ 25 mls/hr Q12HR IV 05/23/25 01:00 05/24/25 23:55 25 MLS/HR Temazepam 15 mg HSPRN PRN PO 05/23/25 14:00 Oxycodone HCl 5 mg Q6HP PRN PO 05/24/25 09:45 05/25/25 05:53 5 MG Hydromorphone HCl 0.5 mg Q4HPRN PRN IV 05/24/25 09:45 Enteral Nutritional Formula 240 ml TIDWM PO 05/24/25 18:00 05/24/25 18:55 240 ML Heparin Sodium/ Dextrose 250 ml @ 6 mls/hr Q24H IV 05/24/25 22:45 05/25/25 06:29 6 MLS/HR Sodium Bicarbonate 150 ml/Dextrose 1,150 ml @ 100 mls/hr [id number] IV 05/25/25 09:30 Laboratory Results Laboratory Tests 05/25/25 05:14 Chemistry Test 05/25/25 05:14 Calcium Level 8.1 mg/dL (8.7-10.4) L Coagulation Test 05/24/25 14:30 05/24/25 20:54 05/25/25 05:14 Prothrombin Time 10.9 sec (9.3-11.8) 12.7 sec (9.3-11.8) H 11.6 sec (9.3-11.8) Prothrombin Time INR 1.03 (0.9-1.15) 1.22 (0.9-1.15) H 1.11 (0.9-1.15) Activated Partial Thromboplast Time 33.3 SEC (24.5-34.5) 124.9 SEC (24.5-34.5) *H 58.6 SEC (24.5-34.5) H Urinalysis Test 05/12/25 22:00 05/14/25 00:00 05/14/25 10:38 Urine Color Yellow (Yellow) Urine Clarity Clear (Clear) Urine pH 5.0 (5.0-9.0) Urine Specific [place] 1.015 (1.001-1.035) Urine Protein 1+ (Negative) H Urine Ketones Trace (Negative) H Urine Blood Trace /uL (Negative) H Urine Nitrite Negative (Negative) Urine Bilirubin Negative (Negative) Urine Urobilinogen Normal mg/dL (Negative) Urine Leukocyte Esterase Negative /uL (Negative) Urine Glucose Normal mg/dL (Normal) Urine Protein/Creatinine Ratio 0.73 Urine Total Protein 65.9 mg/dL (1-14) H Urine Creatinine 91.41 mg/dL (30.0-125.0) Urine Sodium 15 mmol/L (40-220) L Microbiology Microbiology Date/Time Source Procedure Growth Status 05/21/25 10:30 Ascities Fluid Gram Stain - Final Resulted 05/21/25 10:30 Ascities Fluid Body Fluid Culture - Preliminary Resulted 05/12/25 23:25 Blood Blood Culture - Final NO GROWTH AFTER 5 DAYS OF INCUBATION. Complete Labs and/or images reviewed: Labs reviewed by me, Image(s) reviewed by me Assessment/Plan Assessment/Plan Impression: -ascites -questionable liver cirrhosis -history of non-Hodgkin's lymphoma -history of pacemaker implant -acute kidney injury, vasomotor nephropathy -questionable sepsis secondary to spontaneous bacterial peritonitis -COPD -peritoneal carcinomatosis.? Pancreatic CA -acute hypoxic respiratory failure -left lower extremity DVT Plan: Events: Pain better controlled with new pain regimen. Discussed case with interventional radiology. Recommend to keep IV heparin over the weekend. Patient may ambulate. -continue IV hydration -GI consultation -continue Rocephin and Flagyl -continue heparin drip per protocol -social service consultation for transfer to higher level care for oncology services -O2 supplementation to keep saturation greater than 90% Total time spent with patient discussing and formulating plan of care: 35 minutes. This medical document was created using an electronic medical record system with [employer] dictation system. Although this document has been carefully reviewed, there may still be some phonetic and typographical errors. These areas are purely typographical due to imperfections of the software programs, and do not reflect any compromise in the patient's medical care. Plan discussed with: Patient, Other (RN) My Orders Orders - KENNETH CORBETT NP Procedure Category Date Status Time Platelet Monitoring [facility] 05/24/25 In Process 13:50 Vte Protocol Initiated 05/24/25 In Process 13:50 Heparin Per [facility] 05/24/25 In Process Standardized Proce 13:50 Discontinue All Im [facility] 05/24/25 In Process Injections 13:50 Heparin Per Pharmacy [facility] 05/24/25 In Process Protocol 15:03 Ambulate [facility] 05/24/25 In Process 15:37 Heparin Drip/D5w PHA 05/24/25 In Process 100units/Ml 22:45 PTPTT LAB 05/25/25 Logged 11:15 Heparin Per Pharmacy [facility] 05/25/25 In Process Protocol 06:12 Date of Service: May 25, 2025 Billing Provider: KENNETH CORBETT NP Common Visit Codes: [id number] INP/OBS CARE(HIGH) KENNETH CORBETT NP May 25, 2025 10:54
[2025-05-25 11:46] LABS: INR 1.08 (0.9-1.15); Partial Thromboplastin Time 58.5 SEC (24.5-34.5); Prothrombin Time 11.4 sec (9.3-11.8)
[2025-05-25] MEDS: SODIUM BICARB 50mEq/50ml Vial 150 ML in D5W 5% 1,000 ML IV SCH (12:08)
--- NOTE | 2025-05-25 12:26 | DVH ---
INDICATION: r/o obstruction TECHNIQUE: Multiple real-time sonographic images of the kidneys and bladder were obtained. COMPARISON: None FINDINGS: The right kidney measures 9.1 cm in length, which is normal in size. There is normal echoge nicity of the right kidney. No hydronephrosis. The left kidney measures 10.4 cm in length, which is normal in size. There is normal echogenicity of the left kidney. No hydronephrosis. There is an echogenic lesion in the urinary bladder measuring 1.1 cm. No bladder wall thickening. Pr evoid volume measures 62 cc. Incidentally noted is ascites. IMPRESSION: 1. Normal sonographic appearance of the kidneys. 2. No hydronephrosis. 3. 1.1 cm bladder stone. 4. Incidentally noted ascites.
[2025-05-25 17:33] LABS: Potassium 4.6 mmol/L (3.5-5.1)
[2025-05-25 17:34] LABS: Anion Gap 13 (5-15)
[2025-05-25 17:39] LABS: BUN/Creatinine Ratio 25.2 (10.0-20.0); Calcium 7.9 mg/dL (8.7-10.4); Carbon Dioxide 19 mmol/L (20-31); Chloride 98 mmol/L (98-107); Sodium 130 mmol/L (136-145)
[2025-05-25 17:42] LABS: Glucose 170 mg/dL (74-106)
[2025-05-25 17:44] LABS: Blood Urea Nitrogen 90 mg/dL (9-23)
[2025-05-25 18:05] LABS: INR 1.08 (0.9-1.15); Partial Thromboplastin Time 52.3 SEC (24.5-34.5); Prothrombin Time 11.4 sec (9.3-11.8)
[2025-05-25] MEDS: PIPERACILLIN-TAZOB 3.375GM 100 ML IV SCH (23:15)
[2025-05-26 01:00] VITALS: BP 101/61; PULSE 87; RESP 16; TEMP 97.8; O2SAT 98
[2025-05-26 05:00] VITALS: BP 103/56; PULSE 88; RESP 16; TEMP 97.9; O2SAT 98
[2025-05-26 07:28] LABS: Potassium 4.4 mmol/L (3.5-5.1)
[2025-05-26 07:29] LABS: Anion Gap 12 (5-15); Carbon Dioxide 21 mmol/L (20-31)
[2025-05-26 07:30] VITALS: PULSE 88; RESP 16; O2SAT 98
[2025-05-26 07:34] LABS: BUN/Creatinine Ratio 24.3 (10.0-20.0)
[2025-05-26 07:37] LABS: Hematocrit 33.5 % (36.0-46.0); Hemoglobin 11.1 g/dL (12.2-16.2); INR 1.07 (0.9-1.15); Mean Corpuscular Hemoglobin 29.4 pg (28.0-32.0); Mean Corpuscular Volume 88.8 fL (80.0-100.0); Partial Thromboplastin Time 41.0 SEC (24.5-34.5); Prothrombin Time 11.3 sec (9.3-11.8)
[2025-05-26 08:00] LABS: Total Cells Counted 100.0 (100)
[2025-05-26 08:01] LABS: Chloride 95 mmol/L (98-107); Glucose 165 mg/dL (74-106); Sodium 128 mmol/L (136-145); Tear Drop Cells FEW
[2025-05-26 08:03] LABS: Blood Urea Nitrogen 82 mg/dL (9-23); Calcium 8.1 mg/dL (8.7-10.4)
--- NOTE | 2025-05-26 08:28 | CONS ---
Pharmacy Clinical Information: APTT = 41.0 AT 0625 --> INCREASE HEPARIN DRIP RATE FROM 600 UNITS/HR TO 800 UNITS/HR NEXT APTT DRAW SCHEDULED FOR 1500 PER RX PROTOCOL. DOTTIE VILA PHARMACIST May 26, 2025 08:28
[2025-05-26] MEDS: HEPARIN DRIP/D5W 100UNITS/ML 250 ML IV SCH (08:30)
[2025-05-26 09:17] VITALS: BP 100/63; PULSE 82; RESP 17; TEMP 97.7; O2SAT 98
[2025-05-26 10:44] VITALS: BP 146/74; PULSE 67; RESP 19; TEMP 97.9; O2SAT 98
--- NOTE | 2025-05-26 11:11 | DVHPN2 ---
Subjective Lower extremity pain has improved. Reviewed: Care Plan, H&P, Labs, Medications, Previous Orders, Radiology Changes from previous H/P or p: No Changes General: Per HPI Objective Vitals Vital Signs Date Time Temp Pulse Resp B/P (MAP) Pulse Ox O2 Delivery O2 Flow Rate FiO2 05/26/25 10:44 97.9 67 19 98 05/26/25 09:17 100/63 (75) 05/26/25 07:30 Nasal Cannula* 2 28 Intake/Output Intake and Output 05/26/25 07:00 Intake Total 2000 ml Balance 2000 ml Intake Oral 1200 ml IV Total 800 ml # Voids 3 General Appearance: Alert, Oriented X3, Cooperative, No acute distress HEENT: Atraumatic, PERRLA Lungs: Clear to auscultation, Normal air movement Cardiovascular: Regular rate Abdomen: Normal bowel sounds, Soft, No tenderness Extremities: Other (Left lower extremity swelling with ashen color) Skin: Dry, Intact Psych/Mental Status: Mental status NL, Mood NL Medications Current Medications Medications Dose Ordered Sig/Andrew Route Start Time Stop Time Status Last Admin Dose Admin Albuterol 2.5 mg Q6HPRN PRN NEB 05/13/25 00:45 Cancel Ondansetron HCl 4 mg Q4HP PRN IV 05/13/25 00:45 Acetaminophen 650 mg Q6HP PRN PO 05/13/25 00:45 05/24/25 00:15 650 MG Octreotide Acetate 100 mcg TID SUBCUT 05/14/25 14:00 05/25/25 22:52 100 MCG Metronidazole 100 ml @ 100 mls/hr Q8HR IV 05/15/25 14:00 05/25/25 22:48 100 MLS/HR Pantoprazole Sodium 40 mg BID@0600,1700 PO 05/21/25 17:00 05/26/25 06:59 40 MG Temazepam 15 mg HSPRN PRN PO 05/23/25 14:00 Oxycodone HCl 5 mg Q6HP PRN PO 05/24/25 09:45 05/26/25 06:59 5 MG Hydromorphone HCl 0.5 mg Q4HPRN PRN IV 05/24/25 09:45 Enteral Nutritional Formula 240 ml TIDWM PO 05/24/25 18:00 05/25/25 18:16 240 ML Sodium Bicarbonate 150 ml/Dextrose 1,150 ml @ 100 mls/hr [id number] IV 05/25/25 09:30 05/25/25 12:08 100 MLS/HR Piperacillin Sod/ Tazobactam Sod 100 ml @ 25 mls/hr Q12H IV 05/25/25 23:15 05/25/25 23:15 25 MLS/HR Heparin Sodium/ Dextrose 250 ml @ 8 mls/hr Q24H IV 05/26/25 08:30 Laboratory Results Laboratory Tests 05/26/25 06:25 Chemistry Test 05/25/25 17:18 05/26/25 06:25 Calcium Level 7.9 mg/dL (8.7-10.4) L 8.1 mg/dL (8.7-10.4) L Coagulation Test 05/25/25 11:19 05/25/25 17:18 05/26/25 06:25 Prothrombin Time 11.4 sec (9.3-11.8) 11.4 sec (9.3-11.8) 11.3 sec (9.3-11.8) Prothrombin Time INR 1.08 (0.9-1.15) 1.08 (0.9-1.15) 1.07 (0.9-1.15) Activated Partial Thromboplast Time 58.5 SEC (24.5-34.5) H 52.3 SEC (24.5-34.5) H 41.0 SEC (24.5-34.5) H Urinalysis Test 05/12/25 22:00 05/14/25 00:00 05/14/25 10:38 Urine Color Yellow (Yellow) Urine Clarity Clear (Clear) Urine pH 5.0 (5.0-9.0) Urine Specific [place] 1.015 (1.001-1.035) Urine Protein 1+ (Negative) H Urine Ketones Trace (Negative) H Urine Blood Trace /uL (Negative) H Urine Nitrite Negative (Negative) Urine Bilirubin Negative (Negative) Urine Urobilinogen Normal mg/dL (Negative) Urine Leukocyte Esterase Negative /uL (Negative) Urine Glucose Normal mg/dL (Normal) Urine Protein/Creatinine Ratio 0.73 Urine Total Protein 65.9 mg/dL (1-14) H Urine Creatinine 91.41 mg/dL (30.0-125.0) Urine Sodium 15 mmol/L (40-220) L Microbiology Microbiology Date/Time Source Procedure Growth Status 05/21/25 10:30 Ascities Fluid Gram Stain - Final Resulted 05/21/25 10:30 Ascities Fluid Body Fluid Culture - Preliminary Resulted 05/12/25 23:25 Blood Blood Culture - Final NO GROWTH AFTER 5 DAYS OF INCUBATION. Complete Labs and/or images reviewed: Labs reviewed by me, Image(s) reviewed by me Assessment/Plan Assessment/Plan Impression: -ascites -questionable liver cirrhosis -history of non-Hodgkin's lymphoma -history of pacemaker implant -acute kidney injury, vasomotor nephropathy -questionable sepsis secondary to spontaneous bacterial peritonitis -COPD -peritoneal carcinomatosis.? Pancreatic CA -acute hypoxic respiratory failure -left lower extremity DVT Plan: Events: Patient to be transferred to [facility]. Accepting oncologist, Dr. Shaver continue heparin drip in route to hospital. -continue IV hydration -GI consultation -continue Rocephin and Flagyl -continue heparin drip per protocol -social service consultation for transfer to higher level care for oncology services -O2 supplementation to keep saturation greater than 90% Total time spent with patient discussing and formulating plan of care: 35 minutes. This medical document was created using an electronic medical record system with [employer] dictation system. Although this document has been carefully reviewed, there may still be some phonetic and typographical errors. These areas are purely typographical due to imperfections of the software programs, and do not reflect any compromise in the patient's medical care. Plan discussed with: Patient, Other (RN) My Orders Orders - KENNETH CORBETT NP Procedure Category Date Status Time Heparin Per Pharmacy [facility] 05/25/25 In Process Protocol 11:57 Heparin Per Pharmacy [facility] 05/25/25 In Process Protocol 19:03 Heparin Drip/D5w PHA 05/26/25 In Process 100units/Ml 08:30 Complete Blood Count LAB 05/27/25 Verified 04:00 PTPTT LAB 05/26/25 Logged 15:00 Heparin Per Pharmacy [facility] 05/26/25 In Process Protocol 08:26 Imaging Transfer ORDERS 05/26/25 Transmitted Request 09:55 Date of Service: May 26, 2025 Billing Provider: KENNETH CORBETT NP Common Visit Codes: [id number] INP/OBS CARE(HIGH) KENNETH CORBETT NP May 26, 2025 11:11
--- NOTE | 2025-05-26 11:43 | DVHPN2 ---
Progress Note Date Seen: May 26, 2025 Medical Necessity Reason Pt with a Central, PICC or Fol: No Subjective Changes from previous H/P or p: No Changes Objective vital signs Vital Sign Date Time Temp Pulse Resp B/P (MAP) Pulse Ox O2 Delivery O2 Flow Rate FiO2 05/26/25 10:44 97.9 67 19 98 05/26/25 09:17 100/63 (75) 05/26/25 07:30 Nasal Cannula* 2 28 Total Intake and Output 05/25/25 05/25/25 05/26/25 15:00 23:00 07:00 Intake Total 100 ml 1000 ml 900 ml Balance 100 ml 1000 ml 900 ml medications Current Medications Medications Dose Ordered Sig/Andrew Route Start Time Stop Time Status Last Admin Dose Admin Albuterol 2.5 mg Q6HPRN PRN NEB 05/13/25 00:45 Cancel Ondansetron HCl 4 mg Q4HP PRN IV 05/13/25 00:45 Acetaminophen 650 mg Q6HP PRN PO 05/13/25 00:45 05/24/25 00:15 650 MG Octreotide Acetate 100 mcg TID SUBCUT 05/14/25 14:00 05/25/25 22:52 100 MCG Metronidazole 100 ml @ 100 mls/hr Q8HR IV 05/15/25 14:00 05/25/25 22:48 100 MLS/HR Pantoprazole Sodium 40 mg BID@0600,1700 PO 05/21/25 17:00 05/26/25 06:59 40 MG Temazepam 15 mg HSPRN PRN PO 05/23/25 14:00 Oxycodone HCl 5 mg Q6HP PRN PO 05/24/25 09:45 05/26/25 06:59 5 MG Hydromorphone HCl 0.5 mg Q4HPRN PRN IV 05/24/25 09:45 Enteral Nutritional Formula 240 ml TIDWM PO 05/24/25 18:00 05/25/25 18:16 240 ML Sodium Bicarbonate 150 ml/Dextrose 1,150 ml @ 100 mls/hr [id number] IV 05/25/25 09:30 05/25/25 12:08 100 MLS/HR Piperacillin Sod/ Tazobactam Sod 100 ml @ 25 mls/hr Q12H IV 05/25/25 23:15 05/25/25 23:15 25 MLS/HR Heparin Sodium/ Dextrose 250 ml @ 8 mls/hr Q24H IV 05/26/25 08:30 Examination: GENERAL:Abnormal, CVS:Normal, ABDOMEN:Abnormal, NEURO:Normal laboratory and microbiology Laboratory Tests 05/26/25 06:25 Test 05/26/25 06:25 Range/Units Serum Glucose 165 H 74-106 mg/dL Microbiology Date/Time Source Procedure Growth Status 05/21/25 10:30 Ascities Fluid Gram Stain - Final Resulted 05/21/25 10:30 Ascities Fluid Body Fluid Culture - Preliminary Resulted 05/12/25 23:25 Blood Blood Culture - Final NO GROWTH AFTER 5 DAYS OF INCUBATION. Complete Problem List/Assessment/Plan Problem List/Assessment/Plan Acute kidney injury hemodynamically mediated cannot exclude ATN/HRS worsening renal function today continue IVF, lasix IVP today rec r/o urinary retention clinical decline may require acute dialysis discussed this with patient who is saddened by this. no previous ckd hx GFR > 70 in 2023 hyperkalemia metabolic acidosis -change IVF to sodium bicarb drip new onset Ascites s/p large volume paracentesis diagnosis peritoneal carcinomatoses + CA 19.9 and Ca [address] s/p EGD primary team rec higher level of care extensive DVT left leg s/p thrombectomy yesterday now on AC no nsaids avoid contrast studies pending HLOC due to malignancy diagnosis guarded prognosis Plan discussed with: Patient Dietary Evaluation Review Comments: Nutrition Recommendation: 1) Consider 2 gm Na diet 2) Monitor PO intake, lab values, weight trend, and I/O Expected Outcomes/Goals: Lab values to improve Fu 3-5 days Total Time (mins): 33 ELENA CULVER MD May 26, 2025 11:43
--- NOTE | 2025-05-27 13:43 | DVHPN2 ---
Progress Note - Dictate Date Seen: May 25, 2025 Medical Necessity Reason Pt with a Central, PICC or Fol: No Subjective PT WITH CAROID STENOSIS S/P CERVICAL SPINE SURGERY CRYPTOGENIC CIRRHOSIS KYLIE HTN VOLUME DEPLETION PROGRESSIVE ASCITES R/O PERITONITIS HFrEF S/P BV AICD vital signs Vital Sign Date Time Temp Pulse Resp B/P (MAP) Pulse Ox O2 Delivery O2 Flow Rate FiO2 05/26/25 10:44 97.9 67 19 98 05/26/25 09:17 100/63 (75) 05/26/25 07:30 Nasal Cannula* 2 28 medications Current Medications Medications Dose Ordered Sig/Andrew Route Start Time Stop Time Status Last Admin Dose Admin Albuterol 2.5 mg Q6HPRN PRN NEB 05/13/25 00:45 Cancel objective HEENT: Normal ENT Inspection, PERRL/EOMI, Pharynx Normal, TMs Normal, Other (A TINY BLOOD VESSEL ON THE ROOF OF THE MOUTH IS BLEEDING, NO SWELLING AND ACTIVELY BLEEDING. NO BLOOD CLOTS, NO DENTAL AND GUM INFECTION. ) Neck: Full Range of Motion, Non-Tender, Normal, Normal Inspection Respiratory: Chest Non-Tender, Lungs Clear, No Accessory Muscle Use, No Respiratory Distress, Normal Breath Sounds Cardiovascular: No Edema, No JVD, No Murmur, No Gallop, Normal Peripheral Pulses, Regular Rate/Rhythm Breast Exam: Deferred Gastrointestinal: No Organomegaly, + ascite< shifting dullness Genitalia: Deferred Pelvic: Deferred Rectal: Deferred Extremities: No calf tenderness, Normal capillary refill, Normal inspection, Normal range of motion, Non-tender, No pedal edema Musculoskeletal : Apperance: Normal Neurologic: Alert, pulmonary specialist II-XII nml as Tested, No Motor Deficits, Normal Affect, Normal Mood, No Sensory Deficits Cerebellar Function: Normal Reflexes: Normal Skin: Dry, Normal Color, Warm Peripheral Pulses: 2+ carotid (R), 2+ carotid (L) Lymphatic: No Adenopathy laboratory and microbiology Laboratory Tests 05/26/25 06:25 Test 05/26/25 06:25 Range/Units Serum Glucose 165 H 74-106 mg/dL Problem List PERITONITIS ASICITES CIRRHOSIS HFrEF S/P BIV AICD ACUTE RENAL FAILURE Assessment/Plan ABX S/P PARACENTESIS SLOW VOLUME REPLETION WITH ALBUMIN fFLUID WBC TRENDING DOWN AFTER VANCO DOSE GIVEN possible gi malignancy GI W/U WILL DISCUSS WITH PT SHE WANTS REFERRAL TO [facility] SINCE NON HD LYMPHOMA WAS TREATED AT [facility] DC ROCEPHIN TO [facility] BECAUSE OF GROUP D STREP COVERAGE LE SWELLING C/W WITH DVT START LOVENOX LE VENOUS DOPPLER POSITIVE FOR DVT THROMBECTOMY ANTICOAG Dietary Evaluation Review Comments: Nutrition Recommendation: 1) Consider 2 gm Na diet 2) Monitor PO intake, lab values, weight trend, and I/O Expected Outcomes/Goals: Lab values to improve Fu 3-5 days Plan discussed with: Patient RUDY CHAKRABORTY MD May 27, 2025 13:43
--- NOTE | 2025-05-27 13:44 | DVHPN2 ---
Progress Note - Dictate Date Seen: May 26, 2025 Medical Necessity Reason Pt with a Central, PICC or Fol: No Subjective PT WITH CAROID STENOSIS S/P CERVICAL SPINE SURGERY CRYPTOGENIC CIRRHOSIS KYLIE HTN VOLUME DEPLETION PROGRESSIVE ASCITES R/O PERITONITIS HFrEF S/P BV AICD vital signs Vital Sign Date Time Temp Pulse Resp B/P (MAP) Pulse Ox O2 Delivery O2 Flow Rate FiO2 05/26/25 10:44 97.9 67 19 98 05/26/25 09:17 100/63 (75) 05/26/25 07:30 Nasal Cannula* 2 28 medications Current Medications Medications Dose Ordered Sig/Andrew Route Start Time Stop Time Status Last Admin Dose Admin Albuterol 2.5 mg Q6HPRN PRN NEB 05/13/25 00:45 Cancel objective HEENT: Normal ENT Inspection, PERRL/EOMI, Pharynx Normal, TMs Normal, Other (A TINY BLOOD VESSEL ON THE ROOF OF THE MOUTH IS BLEEDING, NO SWELLING AND ACTIVELY BLEEDING. NO BLOOD CLOTS, NO DENTAL AND GUM INFECTION. ) Neck: Full Range of Motion, Non-Tender, Normal, Normal Inspection Respiratory: Chest Non-Tender, Lungs Clear, No Accessory Muscle Use, No Respiratory Distress, Normal Breath Sounds Cardiovascular: No Edema, No JVD, No Murmur, No Gallop, Normal Peripheral Pulses, Regular Rate/Rhythm Breast Exam: Deferred Gastrointestinal: No Organomegaly, + ascite< shifting dullness Genitalia: Deferred Pelvic: Deferred Rectal: Deferred Extremities: No calf tenderness, Normal capillary refill, Normal inspection, Normal range of motion, Non-tender, No pedal edema Musculoskeletal : Apperance: Normal Neurologic: Alert, coil connector II-XII nml as Tested, No Motor Deficits, Normal Affect, Normal Mood, No Sensory Deficits Cerebellar Function: Normal Reflexes: Normal Skin: Dry, Normal Color, Warm Peripheral Pulses: 2+ carotid (R), 2+ carotid (L) Lymphatic: No Adenopathy laboratory and microbiology Laboratory Tests 05/26/25 06:25 Test 05/26/25 06:25 Range/Units Serum Glucose 165 H 74-106 mg/dL Problem List PERITONITIS ASICITES CIRRHOSIS HFrEF S/P BIV AICD ACUTE RENAL FAILURE Assessment/Plan ABX S/P PARACENTESIS SLOW VOLUME REPLETION WITH ALBUMIN fFLUID WBC TRENDING DOWN AFTER VANCO DOSE GIVEN possible gi malignancy GI W/U WILL DISCUSS WITH PT SHE WANTS REFERRAL TO [facility] SINCE NON HD LYMPHOMA WAS TREATED AT [facility] DC ROCEPHIN TO [facility] BECAUSE OF GROUP D STREP COVERAGE LE SWELLING C/W WITH DVT START LOVENOX LE VENOUS DOPPLER POSITIVE FOR DVT THROMBECTOMY ANTICOAG TRANSFER PT TO [facility] Dietary Evaluation Review Comments: Nutrition Recommendation: 1) Consider 2 gm Na diet 2) Monitor PO intake, lab values, weight trend, and I/O Expected Outcomes/Goals: Lab values to improve Fu 3-5 days Plan discussed with: Patient Critical Care Time(min): 35 RUDY CHAKRABORTY MD May 27, 2025 13:44
[2025-05-31] MEDS ORDERED: APIXABAN 5 MG TAB PO SCH (10:00)
== END 2025-05-26 12:18 | disposition short-term general hospital (02) | DRG 853 ==
LOC: ER 20:19 → OVERFLOW 23:36 → EAST 05-13 17:25
PROVIDERS: ADMIT Nurse Practitioner Acute Care; ATTEND Nurse Practitioner Acute Care
PROC: 0W9G3ZZ Drainage of Peritoneal Cavity, Percutaneous Approach (ICD-10-PCS; principal; 2025-05-13)
PROC: 0DB98ZX Excision of Duodenum, Via Natural or Artificial Opening Endoscopic, Diagnostic (ICD-10-PCS; 2025-05-21)
PROC: 0DB68ZX Excision of Stomach, Via Natural or Artificial Opening Endoscopic, Diagnostic (ICD-10-PCS; 2025-05-21)
PROC: 0DB48ZX Excision of Esophagogastric Junction, Via Natural or Artificial Opening Endoscopic, Diagnostic (ICD-10-PCS; 2025-05-21)
PROC: 0W9G3ZZ Drainage of Peritoneal Cavity, Percutaneous Approach (ICD-10-PCS; 2025-05-21)
PROC: 06CD3ZZ Extirpation of Matter from Left Common Iliac Vein, Percutaneous Approach (ICD-10-PCS; 2025-05-23)
PROC: 06CG3ZZ Extirpation of Matter from Left External Iliac Vein, Percutaneous Approach (ICD-10-PCS; 2025-05-23)
PROC: 06CN3ZZ Extirpation of Matter from Left Femoral Vein, Percutaneous Approach (ICD-10-PCS; 2025-05-23)
PROC: 06CY3ZZ Extirpation of Matter from Lower Vein, Percutaneous Approach (ICD-10-PCS; 2025-05-23)
PROC: B51GYZZ Fluoroscopy of Left Pelvic (Iliac) Veins using Other Contrast (ICD-10-PCS; 2025-05-23)
PROC: B519YZZ Fluoroscopy of Inferior Vena Cava using Other Contrast (ICD-10-PCS; 2025-05-23)
PROC: B51CYZZ Fluoroscopy of Left Lower Extremity Veins using Other Contrast (ICD-10-PCS; 2025-05-23)
DX: A41.9 Sepsis, unspecified organism (principal); J96.21 Acute and chronic respiratory failure with hypoxia; K65.2 Spontaneous bacterial peritonitis; N17.0 Acute kidney failure with tubular necrosis; R18.8 Other ascites; C85.90 Non-Hodgkin lymphoma, unspecified, unspecified site; I50.20 Unspecified systolic (congestive) heart failure; K86.2 Cyst of pancreas; C25.9 Malignant neoplasm of pancreas, unspecified; C78.6 Secondary malignant neoplasm of retroperitoneum and peritoneum; I47.10 Supraventricular tachycardia, unspecified; E87.20 Acidosis, unspecified; I82.412 Acute embolism and thrombosis of left femoral vein; I82.432 Acute embolism and thrombosis of left popliteal vein; I82.442 Acute embolism and thrombosis of left tibial vein; I13.0 Hypertensive heart and chronic kidney disease with heart failure and stage 1 through stage 4 chronic kidney disease, or unspecified chronic kidney disease; K74.69 Other cirrhosis of liver; J44.9 Chronic obstructive pulmonary disease, unspecified; R63.4 Abnormal weight loss; K80.20 Calculus of gallbladder without cholecystitis without obstruction; G47.33 Obstructive sleep apnea (adult) (pediatric); D64.9 Anemia, unspecified; K52.9 Noninfective gastroenteritis and colitis, unspecified; N18.9 Chronic kidney disease, unspecified; K29.80 Duodenitis without bleeding; K44.9 Diaphragmatic hernia without obstruction or gangrene; K29.70 Gastritis, unspecified, without bleeding; E87.5 Hyperkalemia; Z95.810 Presence of automatic (implantable) cardiac defibrillator; Z90.81 Acquired absence of spleen; Z82.49 Family history of ischemic heart disease and other diseases of the circulatory system; Z92.21 Personal history of antineoplastic chemotherapy; Z80.52 Family history of malignant neoplasm of bladder; Z80.41 Family history of malignant neoplasm of ovary; Z88.8 Allergy status to other drugs, medicaments and biological substances; Z68.26 Body mass index [BMI] 26.0-26.9, adult; Z79.899 Other long term (current) drug therapy; Z80.9 Family history of malignant neoplasm, unspecified; Z87.891 Personal history of nicotine dependence
CPT/HCPCS: 36415; 37187; 49083; 71045; 74176; 74181; 76705; 76775; 76942; 80048; 80053; 80074; 80076; 80162; 81003; 82040; 82247; 82270; 82378; 82570; 82962; 83605; 83690; 83986; 84075; 84156; 84300; 84450; 84460; 85007; 85025; 85027; 85048; 85610; 85730; 86301; 86304; 87040; 87071; 87205; 89051; 93971; 97110; 97116; 97163; 97530; 99152; C1769; C1894; G0378; J2250; J2405; J2470; J2543; J2704; J3490; Q9967